=== PATIENT | female | born 1940 | race Caucasian/White ===

== ENCOUNTER 2018-01-23 20:52 | Inpatient (IN) | payer OTHER ==
--- NOTE | 2018-01-23 21:49 | DR.GENAD ---
HPI - PCP Primary Care Physician: FROM [facility] - HPI Comment HPI Comment: PATIENT USE MEDS AT HOME BUT STILL SOB AND RUNNING FEVER. COUGHING , PRODUCTIVE SLIGHTLY YELLOW SPUTUM. NO DYSURIA. - Complaint/Symptoms Chief Complaint Doctors Comments: INCREASING SOB Chief Complaint:: WHEEZING CANT BREATH GOOD HAS COPD AND THINKS IT IS A FLAIR UP OF THAT Self Treatment fo Chief Complaint: ALBUTEROL BREATHING TREATMENTS. BREO AND SPRIVA INH - Nurses notes reviewed Nurses Notes Review: Yes - Source History Provided: Patient - Mode of Arrival Mode of Arrival: Ambulatory - Timing Onset of Chief Complaint: 01/22/18 - Duration Duration: Constant Duration: Hours - Severity Severity: Moderate PMH - PMH Past Medical History: Yes Past Medical History: Anxiety, Asthma, COPD, Diabetes, Hypertension Past Medical History Comment: RESTLESS LEGS. STAGE 3 KIDNEY FAILURE. INSOMNIA Past Surgical History: Yes Surgical History: Hysterectomy, Tonsillectomy Past Surgical History Comment: ESOPHAGUS- DILITATION/ REMOVED NERVES. BACK SURGERY X 2. ROTATOR CUFF BILAT ARMS X2 EACH - Family History History of Family Medical Conditions: Yes Family Medical History: Diabetes Mellitus, [place], Hypertension - Social History Does patient currently use any type of tobacco product: No Have you used tobacco products in the last 12 months: No Type of Tobacco Use: None Does any household member use tobacco: No Alcohol Use: None Do you use any recreational Drugs:: No Lives With: Family Lives Where: Home - infectious screening In the last 2 months have you had wt loss of >10#?: NO Have you had fever, night sweats or hemotysis?: No Have you traveled outside the country in the last 6 months?: No Isolation: Standard ROS - Review of Systems Constitutional: Fever, Weakness, Fatigue. negative: Chills Eyes: No Symptoms Reported. negative: Eye Pain, Discharge ENTM: Nose Discharge, Nose Congestion. negative: Ear Pain, Throat Pain Respiratoy: Productive Cough, Short of Breath, Wheezing. negative: Hemoptysis Cardiovascular: Chest Pain Gastrointestinal/Abdominal: No Symptoms Reported Genitourinary: No Symptoms Reported Neurological: No Symptoms Reported Musculoskeletal: No Symptoms Reported Integumentary: No Symptoms Reported Hematologic/Lymphatic: No Symptoms Reported Endocrine: No Symptoms Reported All Other Systems: Reviewed and Negative PE - Vital Signs Vitals: Temperature 99.6 F Pulse Rate 71 Respiratory Rate 18 Blood Pressure 154/68 O2 Sat by Pulse Oximetry 100 - General Limitations: No Limitations General Appearance: Alert, In Distress - Head Head Exam: Normal Inspection - Eyes Eye exam: Normal Appearance - ENT ENT Exam: Normal External Ear Exam External Ear Exam: Normal External Inspection TM/Canal Exam: Bilateral Normal Nose Exam: Normal Nose Exam Mouth Exam: Normal Inspection Throat Exam: Normal Inspection - Neck Neck Exam: Trachea Midline - Chest Chest Inspection: Symmetric Chest Wall Rise - Respiratory Respiratory Exam: Respiratory Distress Respiratory Exam: Bilateral Wheezing, Bilateral Rhonchi, Upper Wheezing, Upper Rhonchi, Lower Wheezing, Lower Rhonchi - Cardiovascular Cardiovascular Exam: Regular Rate, Normal Rhythm, Normal Heart Sounds - Abdominal Exam Abdominal Exam: Normal Bowel Sounds, Soft. negative: Tenderness - Extremities Extremities Exam: Normal Inspection - Back Back Exam: Normal Inspection - Neurologic Neurological Exam: Alert, Oriented X3 - Psychiatric Psychiatric Exam: Normal Affect, Normal Mood - Skin Skin Exam: Normal Color MDM - Differential Diagnosis Differential Diagnosis: COPB EXCERBATION, BRONCHITIS, PNEUMONIA Course - Treatment Treatment: SEE ORDERS. - Consultation Consultation Comments: PATIENT ADMITTED TO DR. MARQUIS. - Education/Counseling Education/Counseling: Patient, Education Educated On: Diagnosis ROR - Labs Reviewed Laboratory Results Reviewed?: Yes Result Diagrams: 01/23/18 22:13 01/23/18 22:13 Laboratory: WBC 7.7 X10^3/uL (3.6-10.0) 01/23/18 22:13 RBC 3.94 X10^6/uL (3.5-5.4) 01/23/18 22:13 Hgb 11.5 g/dL (12.0-16.0) L 01/23/18 22:13 Hct 35.0 % (36.0-47.0) L 01/23/18 22:13 MCV 88.8 fL (80.0-100.0) 01/23/18 22:13 MCH 29.2 pg (27.0-34.0) 01/23/18 22:13 MCHC 32.9 g/dL (33.0-35.0) L 01/23/18 22:13 RDW 16.1 % (11.6-16.5) 01/23/18 22:13 Plt Count 220 X10^3/uL (150.0-450.0) 01/23/18 22:13 MPV 11.0 fL (7.4-11.0) 01/23/18 22:13 Neut % (Auto) 60.3 % (42.0-75.0) 01/23/18 22:13 Lymph % (Auto) 24.5 % (21.0-51.0) 01/23/18 22:13 [place] % (Auto) 9.6 % (0.0-13.0) 01/23/18 22:13 Eos % (Auto) 4.8 % (0.9-2.9) H 01/23/18 22:13 Baso % (Auto) 0.8 % (0.2-1.0) 01/23/18 22:13 Neut # (Auto) 4.7 x10^3/uL (2.2-4.8) 01/23/18 22:13 Lymph # (Auto) 1.9 X10^3/uL (1.3-2.9) 01/23/18 22:13 [place] # (Auto) 0.7 x10^3/uL (0.3-0.8) 01/23/18 22:13 Eos # (Auto) 0.4 x10^3/uL (0.0-0.2) H 01/23/18 22:13 Baso # (Auto) 0.1 X10^3/uL (0.0-0.1) 01/23/18 22:13 Absolute Nucleated RBC 0.0 /100WBC 01/23/18 22:13 Sodium 141 mmol/L (136-145) 01/23/18 22:13 Corrected Sodium TNP 01/23/18 22:13 Potassium 4.3 mmol/L (3.5-5.1) 01/23/18 22:13 Chloride 102 mmol/L (98-107) 01/23/18 22:13 Carbon Dioxide 34.2 mmol/L (21-32) H 01/23/18 22:13 BUN 13 mg/dL (7-18) 01/23/18 22:13 Creatinine 1.11 mg/dL (0.55-1.02) H 01/23/18 22:13 Est GFR (MDRD) Af Amer > 60 (>60) 01/23/18 22:13 Est GFR (MDRD) Non-Af 51 (>60) L 01/23/18 22:13 Glucose 82 mg/dL (65-99) 01/23/18 22:13 Lactic Acid 2.0 mmol/L (0.4-2.0) 01/23/18 23:02 Calcium 9.1 mg/dL (8.5-10.1) 01/23/18 22:13 Corrected Calcium 9.7 mg/dL (8.5-10.1) 01/23/18 22:13 Total Bilirubin 0.20 mg/dL (0.2-1.0) 01/23/18 22:13 AST 15 Units/L (15-37) 01/23/18 22:13 ALT 18 Units/L (12-78) 01/23/18 22:13 Alkaline Phosphatase 73 Units/L (46-116) 01/23/18 22:13 Total Protein 7.8 g/dL (6.4-8.2) 01/23/18 22:13 Albumin 3.3 g/dL (3.4-5.0) L 01/23/18 22:13 Globulin 4.5 g/dL (2.5-4.5) 01/23/18 22:13 Albumin/Globulin Ratio 0.7 Ratio (1.1-2.1) L 01/23/18 22:13 - XRAY XRAY Interpreted by: Radiologist XRAY Findings: REPORT DISCUSS WITH PATIENT. - Diagnosis Discharge Problem: COPD exacerbation, Pneumonia - Discharge Plan Disposition: ADMITTED INPATIENT Condition: Stable - Follow ups/Referrals - Instructions
[2018-01-23] MEDS ORDERED: DUONEB 0.5 MG/3 MG NEB ONE (21:50)
[2018-01-23] MEDS ORDERED: SOLU-Medrol 125 MG VIAL IM ONE (21:50)
[2018-01-23] MEDS ORDERED: SOLU-Medrol 125 MG VIAL ONE (22:01)
--- NOTE | 2018-01-23 22:13 | RAD ---
HISTORY: Wheezing. Study: Portable chest. Comparison: Chest x-ray dated February 05, 2016. Findings: The trachea is midline. The cardiac silhouette is unremarkable. Peribronchial cuffing and right low er lobe atelectasis versus early infiltrate. No obvious pleural effusion or pneumothorax. The bony t horax appears unchanged. IMPRESSION: Constellation of findings which may represent bronchitis and early right lower lobe atele ctasis versus infiltrate. Reported By:
[2018-01-23 22:25] LABS: BASOPHILS # (AUTO) 0.1 X10^3/uL (0.0-0.1); BASOPHILS % (AUTO) 0.8 % (0.2-1.0); EOSINOPHILS # (AUTO) 0.4 x10^3/uL (0.0-0.2); EOSINOPHILS % (AUTO) 4.8 % (0.9-2.9); HEMOGLOBIN 11.5 g/dL (12.0-16.0); LYMPHOCYTES # (AUTO) 1.9 X10^3/uL (1.3-2.9); LYMPHOCYTES % (AUTO) 24.5 % (21.0-51.0); MEAN CORPUSCULAR HEMOGLOBIN 29.2 pg (27.0-34.0); MEAN CORPUSCULAR HGB CONC 32.9 g/dL (33.0-35.0); MEAN CORPUSCULAR VOLUME 88.8 fL (80.0-100.0); MONOCYTES # (AUTO) 0.7 x10^3/uL (0.3-0.8); MONOCYTES % (AUTO) 9.6 % (0.0-13.0); NEUTROPHILS # (AUTO) 4.7 x10^3/uL (2.2-4.8); NEUTROPHILS % (AUTO) 60.3 % (42.0-75.0); PLATELET COUNT 220 X10^3/uL (150.0-450.0); RED BLOOD COUNT 3.94 X10^6/uL (3.5-5.4); RED CELL DISTRIBUTION WIDTH 16.1 % (11.6-16.5); WHITE BLOOD COUNT 7.7 X10^3/uL (3.6-10.0)
[2018-01-23 22:31] LABS: ALANINE AMINOTRANSFERASE 18 Units/L (12-78); ALBUMIN 3.3 g/dL (3.4-5.0); ALKALINE PHOSPHATASE 73 Units/L (46-116); ASPARTATE AMINO TRANSFERASE 15 Units/L (15-37); BLOOD UREA NITROGEN 13 mg/dL (7-18); CALCIUM 9.1 mg/dL (8.5-10.1); CARBON DIOXIDE 34.2 mmol/L (21-32); CHLORIDE 102 mmol/L (98-107); COR CA(FOR HYPOALB) 9.7 mg/dL (8.5-10.1); CREATININE 1.11 mg/dL (0.55-1.02); SODIUM 141 mmol/L (136-145); TOTAL PROTEIN 7.8 g/dL (6.4-8.2); eGFR BLACK RACES > 60 (>60); eGFR NON BLACK RACES 51 (>60)
[2018-01-23] MEDS ORDERED: ROCEPHIN 1 GM IV PREMIX 1 GM/50 ML IV.SOLN. IV ONE (22:57)
[2018-01-23] MEDS ORDERED: NS 100 ML IV + SPIKE MINIBAG* 100 ML IV ONE (23:01)
[2018-01-23] MEDS ORDERED: ROCEPHIN VIAL 1 GM ONE (23:02)
[2018-01-24] MEDS ORDERED: TUSSIONEX PENNKINETIC SUSP PO PRN (00:48)
[2018-01-24] MEDS: DUONEB 0.5 MG/3 MG NEB SCH ×5 (01:26→16:38)
[2018-01-24] MEDS ORDERED: NS 1/2 1000 ML IV 1,000 ML IV ONE (01:36)
[2018-01-24] MEDS: NS 1/2 1000 ML IV 1,000 ML IV SCH (01:38)
[2018-01-24 01:50] VITALS: BMI 30.9
[2018-01-24 05:19] LABS: BASOPHILS % (AUTO) 0.5 % (0.2-1.0); EOSINOPHILS % (AUTO) 0.1 % (0.9-2.9); HEMATOCRIT 35.6 % (36.0-47.0); HEMOGLOBIN 11.5 g/dL (12.0-16.0); LYMPHOCYTES # (AUTO) 0.4 X10^3/uL (1.3-2.9); LYMPHOCYTES % (AUTO) 5.2 % (21.0-51.0); MEAN CORPUSCULAR HGB CONC 32.2 g/dL (33.0-35.0); MEAN CORPUSCULAR VOLUME 89.8 fL (80.0-100.0); MEAN PLATELET VOLUME 11.4 fL (7.4-11.0); MONOCYTES # (AUTO) 0.1 x10^3/uL (0.3-0.8); NEUTROPHILS # (AUTO) 7.5 x10^3/uL (2.2-4.8); NEUTROPHILS % (AUTO) 93.2 % (42.0-75.0); PLATELET COUNT 217 X10^3/uL (150.0-450.0); RED BLOOD COUNT 3.96 X10^6/uL (3.5-5.4); WHITE BLOOD COUNT 8.1 X10^3/uL (3.6-10.0)
[2018-01-24 05:45] LABS: ALBUMIN 3.2 g/dL (3.4-5.0); CALCIUM 8.8 mg/dL (8.5-10.1); CARBON DIOXIDE 26.5 mmol/L (21-32); COR CA(FOR HYPOALB) 9.4 mg/dL (8.5-10.1); CREATININE 1.21 mg/dL (0.55-1.02)
[2018-01-24] MEDS: HumuLIN R SUBCUT PRN ×3 (05:59→20:31)
[2018-01-24] MEDS ORDERED: LEVAQUIN PREMIX IV 750 MG 750 MG/150 ML BAG IV SCH (06:00)
[2018-01-24 06:15] LABS: BAND NEUTROPHILS % 5 % (0-10); PLATELET MORPHOLOGY COMMENT NORMAL (NORMAL)
[2018-01-24] MEDS: VIBRAMYCIN 100 MG in NS 100 ML IV + SPIKE MINIBAG* 100 ML IV SCH ×2 (08:30→20:29)
[2018-01-24] MEDS: ROBITUSSIN DM PO SCH ×5 (08:30→20:40)
[2018-01-24] MEDS ORDERED: SOLU-Medrol 40 MG VIAL IVP SCH (09:00)
[2018-01-24] MEDS ORDERED: REFLEX: PROVENTIL NEB & PulmiCORT NEB~ NEB SCH (10:15)
[2018-01-24] MEDS ORDERED: ULTRAM PO PRN (10:17)
[2018-01-24] MEDS: PREDNISONE TAB 10 MG PO SCH (10:45)
[2018-01-24] MEDS: TENORMIN PO SCH (10:46)
[2018-01-24] MEDS: MIRAPEX TAB 1 MG PO SCH ×2 (10:46→20:28)
[2018-01-24] MEDS: GLUCOPHAGE XR PO SCH ×2 (10:46→20:28)
[2018-01-24] MEDS: ACTOS PO SCH (10:46)
[2018-01-24 11:12] LABS: BILIRUBIN,URINE NEGATIVE (NEGATIVE); BLOOD/HEMOGLOBIN,URINE NEGATIVE (NEGATIVE); GLUCOSE, URINE 4+ (NEGATIVE); KETONES,URINE 1+ (NEGATIVE); LEUKOCYTE ESTERASE ,URINE NEGATIVE (NEGATIVE); NITRITES,URINE NEGATIVE (NEGATIVE); PROTEIN,URINE 1+ (NEGATIVE); UROBILINOGEN,URINE NORMAL (NORMAL)
[2018-01-24 11:20] LABS: APPEARANCE,URINE CLEAR (CLEAR); COLOR,URINE YELLOW (YELLOW)
[2018-01-24 11:29] LABS: RBC,URINE 0-2 /HPF (NONE SEEN)
[2018-01-24 11:30] LABS: BACTERIA,URINE NEGATIVE /HPF (NEGATIVE); SQUAMOUS EPITHELIAL CELL,UR RARE /HPF (NEGATIVE)
[2018-01-24 11:31] LABS: AMORPHOUS SEDIMENT,UR TRACE /HPF (NEGATIVE); MUCUS,URINE FEW /HPF (NEGATIVE)
[2018-01-24] MEDS ORDERED: SNACK - Diabetic Appropriate PO SCH (20:00)
[2018-01-24] MEDS ORDERED: ROCEPHIN 1 GM IV PREMIX 1 GM/50 ML IV.SOLN. IV SCH (21:00)
[2018-01-24] MEDS ORDERED: KLONOPIN TAB 1 MG PO SCH (21:00)
[2018-01-25] MEDS: DUONEB 0.5 MG/3 MG NEB SCH ×4 (00:55→08:57)
[2018-01-25] MEDS: PULMICORT NEB TX 0.5 MG NEB SCH ×2 (01:22→08:57)
[2018-01-25] MEDS ORDERED: NS 1/2 1000 ML IV 1,000 ML IV ONE (04:45)
[2018-01-25] MEDS: NS 1/2 1000 ML IV 1,000 ML IV SCH ×2 (05:02→07:10)
[2018-01-25] MEDS: HumuLIN R SUBCUT PRN (05:32)
[2018-01-25 06:08] LABS: CALCIUM 8.9 mg/dL (8.5-10.1); COR CA(FOR HYPOALB) 9.7 mg/dL (8.5-10.1); CREATININE 1.51 mg/dL (0.55-1.02); TOTAL PROTEIN 7.3 g/dL (6.4-8.2)
[2018-01-25 07:08] LABS: BASOPHILS # (AUTO) 0.1 X10^3/uL (0.0-0.1); BASOPHILS % (AUTO) 0.7 % (0.2-1.0); HEMATOCRIT 30.5 % (36.0-47.0); LYMPHOCYTES # (AUTO) 1.1 X10^3/uL (1.3-2.9); LYMPHOCYTES % (AUTO) 7.6 % (21.0-51.0); MEAN CORPUSCULAR HEMOGLOBIN 28.7 pg (27.0-34.0); MEAN CORPUSCULAR HGB CONC 32.7 g/dL (33.0-35.0); MEAN CORPUSCULAR VOLUME 87.9 fL (80.0-100.0); MONOCYTES # (AUTO) 0.9 x10^3/uL (0.3-0.8); MONOCYTES % (AUTO) 6.7 % (0.0-13.0); PLATELET COUNT 197 X10^3/uL (150.0-450.0); RED BLOOD COUNT 3.47 X10^6/uL (3.5-5.4); RED CELL DISTRIBUTION WIDTH 16.4 % (11.6-16.5); WHITE BLOOD COUNT 14.1 X10^3/uL (3.6-10.0)
[2018-01-25] MEDS: ROBITUSSIN DM PO SCH (08:23)
[2018-01-25] MEDS: VIBRAMYCIN 100 MG in NS 100 ML IV + SPIKE MINIBAG* 100 ML IV SCH (08:23)
[2018-01-25] MEDS: TENORMIN PO SCH (08:25)
[2018-01-25] MEDS: MIRAPEX TAB 1 MG PO SCH (08:25)
[2018-01-25] MEDS: PREDNISONE TAB 10 MG PO SCH (08:25)
[2018-01-25] MEDS: ACTOS PO SCH (08:25)
[2018-01-25 08:32] VITALS: BP 139/64
== END 2018-01-25 12:55 | disposition home or self-care (01) | DRG 192 ==
LOC: ER 21:08 → MED/SURG 01-24 00:40
PROVIDERS: ADMIT Obstetrics & Gynecology Obstetrics; ATTEND Obstetrics & Gynecology Obstetrics
DX: J44.1 Chronic obstructive pulmonary disease with (acute) exacerbation (principal); J20.8 Acute bronchitis due to other specified organisms; R06.02 Shortness of breath; F41.8 Other specified anxiety disorders; E11.65 Type 2 diabetes mellitus with hyperglycemia; I10 Essential (primary) hypertension; R26.89 Other abnormalities of gait and mobility
CPT/HCPCS: 36415; 71045; 80053; 81001; 83605; 85025; 87040; 87070; 87205; 93005; 93010; 94640; 94760; 96365; 96372; 99284; A4222; J0696; J1815; J1956; J2920; J2930; J3490; J7506; J7620; J7626

== ENCOUNTER 2018-02-13 20:38 | Emergency (ER) | payer OTHER ==
[2018-02-13 20:48] VITALS: BMI 30.8
--- NOTE | 2018-02-14 01:04 | DR.GENAD ---
HPI - PCP Primary Care Physician: PEOPLES - Complaint/Symptoms Chief Complaint Doctors Comments: Patient was admitted and treated for acute exacerbation of bronchitis. She was discharged on pulmicort Flexhaler and Anoro. Patient denies cigarette use. Chief Complaint:: WAS IN HOSPITAL THE WEEK BEFORE ON A TUESDAY, STILL WHEEZING. PT HAS COPD. HAS BEEN RUNNING A FEVER YESTERDAY AND TODAY. BACK AND LEFT KNEE HURTING VERY BAD. Self Treatment fo Chief Complaint: ASPIRIN EVERY 4 HOURS. LAST DOSE ABOUT AN HOUR AND A HALF - Source History Provided: Patient - Mode of Arrival Mode of Arrival: Ambulatory - Timing Onset of Chief Complaint: 02/13/18 PMH - PMH Past Medical History: Yes Past Medical History: Anxiety, Arthritis, Asthma, CHF, COPD, Diabetes, Dyslipidemia, GERD, Headaches, Hypertension, Liver Disease Past Medical History Comment: RESTLESS LEGS, STAGE 3 LIVER DISEASE Past Surgical History: Yes Surgical History: Hysterectomy Past Surgical History Comment: 5 ROTATOR CUFF SURERY, BACK SURGERY TWICE, - Family History History of Family Medical Conditions: Yes Family Medical History: Diabetes Mellitus, [place], Hypertension - Social History Does patient currently use any type of tobacco product: No Have you used tobacco products in the last 12 months: No Type of Tobacco Use: Cigarettes How many years tobacco product used: 50 Alcohol Use: None Do you use any recreational Drugs:: No Lives With: Family Lives Where: Home - infectious screening In the last 2 months have you had wt loss of >10#?: NO Have you had fever, night sweats or hemotysis?: No Have you traveled outside the country in the last 6 months?: No Isolation: Standard ROS - Review of Systems Eyes: No Symptoms Reported ENTM: No Symptoms Reported Respiratoy: No Symptoms Reported Cardiovascular: No Symptoms Reported Gastrointestinal/Abdominal: No Symptoms Reported Genitourinary: No Symptoms Reported Neurological: No Symptoms Reported Musculoskeletal: No Symptoms Reported Integumentary: No Symptoms Reported Hematologic/Lymphatic: No Symptoms Reported Endocrine: No Symptoms Reported Psychiatric: No Symptoms Reported All Other Systems: Reviewed and Negative PE - Vital Signs Vitals: Temperature 98.8 F Pulse Rate 80 Respiratory Rate 16 Blood Pressure [Right Arm] 139/64 Blood Pressure 170/72 O2 Sat by Pulse Oximetry 95 - General General Appearance: Alert, In No Apparent Distress - Head Head Exam: Normal Inspection, Atraumatic - Eyes Eye exam: Normal Appearance, PERRL, EOMI - ENT ENT Exam: Normal Exam External Ear Exam: Normal External Inspection TM/Canal Exam: Bilateral Normal Nose Exam: Normal Nose Exam Mouth Exam: Normal Inspection Throat Exam: Normal Inspection - Neck Neck Exam: Normal Inspection - Chest Chest Inspection: Normal Inspection - Respiratory Respiratory Exam: Normal Lung Sounds Bilat Respiratory Exam: Bilateral Clear to Auscultation - Cardiovascular Cardiovascular Exam: Regular Rate, Normal Rhythm - Abdominal Exam Abdominal Exam: Normal Inspection, Normal Bowel Sounds Abdominal Tenderness: negative: RUQ, RLQ, LUQ, LLQ, Epigastrium, Suprapubic, Diffuse, Mild, Moderate, Severe, Other - Extremities Extremities Exam: Normal Inspection, Full ROM - Back Back Exam: Normal Inspection, Full ROM - Neurologic Neurological Exam: Alert, Oriented X3, CN II-XII Intact - Psychiatric Psychiatric Exam: Normal Affect, Normal Mood - Skin Skin Exam: Warm, Dry, Intact Course - Education/Counseling Educated On: Treatment, Diagnosis, Prognosis, Needs for Follow Up - Diagnosis Discharge Problem: Cough, History of bronchitis - Discharge Plan Condition: Stable - Follow ups/Referrals Follow ups/Referrals: LUMA PEOPLES [Primary Care Provider] - 3 days - Instructions
[2018-02-14 01:27] VITALS: BP 152/88
== END 2018-02-14 01:27 | disposition home or self-care (01) ==
LOC: ER 20:51
DX: R05 Cough (principal); Z87.09 Personal history of other diseases of the respiratory system; J44.9 Chronic obstructive pulmonary disease, unspecified
CPT/HCPCS: 99281; 99283

== ENCOUNTER 2019-05-26 20:43 | Observation (INO) ==
--- NOTE | 2019-05-26 21:05 | DR.GENAD ---
HPI Time Seen Time Seen by Provider: 05/26/19 21:05 PCP Primary Care Physician: Complaint/Symptoms Chief Complaint Doctors Comments: 78 yo female PMHx of COPD on home 02, 50 pack year, CHF, wheel chair bound who presents for cough and SOB. She started 3 days ago. She has gotten progressively sob, productive cough, she states that she has not have fever. She states that she is has been admitted several time for COPD exacerbation. Chief Complaint:: "PT STATED SHE IS SOB AND COUGHING AND SPITTING UP. Self Treatment fo Chief Complaint: SHE HAS BEEN DOING BREATHING TREATMENTS AT HOME BUT IT IS GETTING WORST. Source History Provided: Patient Mode of Arrival Mode of Arrival: Wheelchair Timing Onset of Chief Complaint: 05/22/19 PMH PMH Past Medical History: No Past Medical History: CHF, COPD, Diabetes and Hypertension Past Surgical History: Yes Surgical History: Hysterectomy Past Surgical History Comment: BACK SURGERY AND ESOPHAGEAL SURGERY Family History History of Family Medical Conditions: Yes Family Medical History: Diabetes Mellitus and Hypertension Social History Does patient currently use any type of tobacco product: No Have you used tobacco products in the last 12 months: No Type of Tobacco Use: None Does any household member use tobacco: No Alcohol Use: None Do you use any recreational Drugs:: No Lives With: Family infectious screening In the last 2 months have you had wt loss of >10#?: NO Have you had fever, night sweats or hemotysis?: No Have you traveled outside the country in the last 6 months?: No Isolation: Standard ROS Review of Systems Constitutional: Weakness and Fatigue Eyes: No Symptoms Reported ENTM: No Symptoms Reported Respiratoy: Productive Cough, Hacking Cough and Wheezing Cardiovascular: No Symptoms Reported Gastrointestinal/Abdominal: No Symptoms Reported Genitourinary: No Symptoms Reported Neurological: Tingling (in left arm ) Musculoskeletal: No Symptoms Reported (chronic complaints) Integumentary: No Symptoms Reported Hematologic/Lymphatic: No Symptoms Reported Endocrine: No Symptoms Reported Psychiatric: No Symptoms Reported All Other Systems: Reviewed and Negative PE Vital Signs Vitals: Temperature 98.3 F Pulse Rate [Brachial] 83 Pulse Rate 78 Respiratory Rate 18 Blood Pressure [Right Arm] 142/66 Blood Pressure 134/61 O2 Sat by Pulse Oximetry 95 General Limitations: Physical Limitation (wheel chair bound) General Appearance: Alert and In Distress (respiratory) Head Head Exam: Normal Inspection, Atraumatic and Normocephalic Eyes Eye exam: Normal Appearance, PERRL and EOMI ENT ENT Exam: Normal Exam and Normal Oropharynx External Ear Exam: Normal External Inspection Nose Exam: Normal Nose Exam Mouth Exam: Normal Inspection Throat Exam: Normal Inspection Neck Neck Exam: Normal Inspection and Full ROM Chest Chest Inspection: Normal Inspection Respiratory Respiratory Exam: Bilateral: Wheezing and Bilateral: Rales Cardiovascular Cardiovascular Exam: Regular Rate and Normal Rhythm Abdominal Exam Abdominal Exam: Normal Inspection and Normal Bowel Sounds Extremities Extremities Exam: Normal Inspection, Full ROM and Edema (+1 to ankle B/L LE's ) Neurologic Neurological Exam: Alert, Oriented X3 and CN II-XII Intact MDM Additional Information Additional Information Obtained From: Old Records and Family Differential Diagnosis Differential Diagnosis: COPD exacerbation and CHAY on CKD COURSE Treatment Treatment: Pt has worsening COPD and has been admitted 3 times this year already for COPD related issues. She has exertional dyspnea, SOB, and worsening cough. CXR was clear and WBC wnl but breathing wheezing has improved only slightly with dounebs tx, discussed with hospitalist who agrees with inpt admission for further workup Reevaluation 1st: Unchanged (23:00 pt in mild respiratory distress) 2nd: Improved (Improved S/P duoneb ~01;00 ) 3rd: Unchanged (01:30 explained admission and all lab findings to family ) Consultation Called: :44 Call Returned: :44 Consultation Comments: Dr. Rafael Borges accepted admission for further workup Education/Counseling Education/Counseling: Patient, Family, Education and Counseling Educated On: Treatment, Diagnosis, Prognosis and Needs for Follow Up ROR Labs Reviewed Laboratory Results Reviewed?: Yes Result Diagrams: 05/26/19 21:25 05/26/19 21:25 Laboratory: WBC 7.9 X10^3/uL (3.6-10.0) 05/26/19 21:25 RBC 4.00 X10^6/uL (3.5-5.4) 05/26/19 21:25 Hgb 11.6 g/dL (12.0-16.0) L 05/26/19 21:25 Hct 36.0 % (36.0-47.0) 05/26/19 21:25 MCV 90.0 fL (80.0-100.0) 05/26/19 21:25 MCH 29.0 pg (27.0-34.0) 05/26/19 21:25 MCHC 32.2 g/dL (33.0-35.0) L 05/26/19 21:25 RDW 16.5 % (11.6-16.5) 05/26/19 21:25 Plt Count 255 X10^3/uL (150.0-450.0) 05/26/19 21:25 MPV 9.5 fL (7.4-11.0) 05/26/19 21:25 Neut % (Auto) 79.9 % (42.0-75.0) H 05/26/19 21:25 Lymph % (Auto) 9.2 % (21.0-51.0) L 05/26/19 21:25 [place] % (Auto) 4.9 % (0.0-13.0) 05/26/19 21:25 Eos % (Auto) 2.4 % (0.9-2.9) 05/26/19 21:25 Baso % (Auto) 3.6 % (0.2-1.0) H 05/26/19 21:25 Neut # (Auto) 6.3 x10^3/uL (2.2-4.8) H 05/26/19 21:25 Lymph # (Auto) 0.7 X10^3/uL (1.3-2.9) L 05/26/19 21:25 [place] # (Auto) 0.4 x10^3/uL (0.3-0.8) 05/26/19 21:25 Eos # (Auto) 0.2 x10^3/uL (0.0-0.2) 05/26/19 21:25 Baso # (Auto) 0.3 X10^3/uL (0.0-0.1) H 05/26/19 21:25 Absolute Nucleated RBC 0.0 /100WBC 05/26/19 21:25 Sodium 140 mmol/L (136-145) 05/26/19 21:25 Corrected Sodium 142 mmol/L (136-145) 05/26/19 21:25 Potassium 4.7 mmol/L (3.5-5.1) 05/26/19 21:25 Chloride 100 mmol/L (98-107) 05/26/19 21:25 Carbon Dioxide 32.3 mmol/L (21-32) H 05/26/19 21:25 BUN 31 mg/dL (7-18) H 05/26/19 21:25 Creatinine 2.18 mg/dL (0.55-1.02) H 05/26/19 21:25 Est GFR (MDRD) Af Amer 28 (>60) L 05/26/19 21:25 Est GFR (MDRD) Non-Af 23 (>60) L 05/26/19 21:25 Glucose 194 mg/dL (65-99) H 05/26/19 21:25 Calcium 8.7 mg/dL (8.5-10.1) 05/26/19 21:25 Corrected Calcium 9.3 mg/dL (8.5-10.1) 05/26/19 21:25 Total Bilirubin 0.20 mg/dL (0.2-1.0) 05/26/19 21:25 AST 24 Units/L (15-37) 05/26/19 21:25 ALT 29 Units/L (12-78) 05/26/19 21:25 Alkaline Phosphatase 83 Units/L (46-116) 05/26/19 21:25 Troponin I < 0.02 ng/mL (0-1.5) 05/26/19 21:25 Total Protein 7.4 g/dL (6.4-8.2) 05/26/19 21:25 Albumin 3.3 g/dL (3.4-5.0) L 05/26/19 21:25 Globulin 4.1 g/dL (2.5-4.5) 05/26/19 21:25 Albumin/Globulin Ratio 0.8 Ratio (1.1-2.1) L 05/26/19 21:25 XRAY XRAY Interpreted by: Radiologist and Self XRAY Findings: no acute pathology EKG Rate: 68 Peck: Normal Rhythm: NSR Block: None Hypertrophy: LVH ST: Normal Opioid Opioid Risk Tool Total: 0 Total Score Risk Category: Low Risk Copyright: Vasile SOLOMON predicting aberrant behaviors Diagnosis Discharge Problem: Acute exacerbation of chronic obstructive pulmonary disease (COPD), CHAY (acute kidney injury) Narrative Support Text: admitted to hospital for further workup @ 01:44
[2019-05-26 21:33] LABS: BASOPHILS # (AUTO) 0.3 X10^3/uL (0.0-0.1); BASOPHILS % (AUTO) 3.6 % (0.2-1.0); EOSINOPHILS # (AUTO) 0.2 x10^3/uL (0.0-0.2); EOSINOPHILS % (AUTO) 2.4 % (0.9-2.9); HEMOGLOBIN 11.6 g/dL (12.0-16.0); LYMPHOCYTES # (AUTO) 0.7 X10^3/uL (1.3-2.9); LYMPHOCYTES % (AUTO) 9.2 % (21.0-51.0); MEAN CORPUSCULAR HGB CONC 32.2 g/dL (33.0-35.0); MEAN PLATELET VOLUME 9.5 fL (7.4-11.0); MONOCYTES # (AUTO) 0.4 x10^3/uL (0.3-0.8); MONOCYTES % (AUTO) 4.9 % (0.0-13.0); NEUTROPHILS # (AUTO) 6.3 x10^3/uL (2.2-4.8); NEUTROPHILS % (AUTO) 79.9 % (42.0-75.0); PLATELET COUNT 255 X10^3/uL (150.0-450.0); RED CELL DISTRIBUTION WIDTH 16.5 % (11.6-16.5); WHITE BLOOD COUNT 7.9 X10^3/uL (3.6-10.0)
[2019-05-26 21:41] LABS: ALBUMIN 3.3 g/dL (3.4-5.0); CALCIUM 8.7 mg/dL (8.5-10.1); CARBON DIOXIDE 32.3 mmol/L (21-32); COR CA(FOR HYPOALB) 9.3 mg/dL (8.5-10.1); CREATININE 2.18 mg/dL (0.55-1.02); TOTAL PROTEIN 7.4 g/dL (6.4-8.2)
[2019-05-26] MEDS ORDERED: DUONEB 0.5 MG/3 MG NEB ONE (22:07)
[2019-05-26] MEDS ORDERED: SOLU-Medrol 125 MG VIAL IVP ONE (22:11)
[2019-05-26] MEDS ORDERED: LEVAQUIN PREMIX IV 750 MG 750 MG/150 ML BAG IV SCH (22:15)
[2019-05-26] MEDS ORDERED: SOLU-Medrol 125 MG VIAL ONE (22:21)
--- NOTE | 2019-05-26 22:47 | RAD ---
Chest, one view Indication: Shortness of breath Comparison: 09/23/2018 Findings: There is stable mild enlargement of the cardiac silhouette without congestive failure. No focal infiltrate or significant effusion is identified. No pneumothorax. Impression: No acute cardiopulmonary abnormality. Reported By:
[2019-05-26] MEDS ORDERED: NS 1000 ML 1,000 ML IV SCH (23:40)
[2019-05-26] MEDS ORDERED: SOLU-Medrol 40 MG VIAL ONE (23:41)
[2019-05-26] MEDS ORDERED: NS 1000 ML 1,000 ML ONE (23:41)
[2019-05-26] MEDS ORDERED: DUONEB 0.5 MG/3 MG ONE (23:42)
[2019-05-27] MEDS ORDERED: TYLENOL 325 MG TAB PO PRN (02:59)
[2019-05-27] MEDS: DUONEB 0.5 MG/3 MG NEB SCH ×5 (03:00→19:59)
[2019-05-27] MEDS ORDERED: NS 1000 ML 1,000 ML IV SCH (03:00)
[2019-05-27] MEDS: NS 1000 ML 1,000 ML IV SCH ×2 (03:48→17:12)
[2019-05-27 05:33] LABS: BASOPHILS % (AUTO) 0.6 % (0.2-1.0); EOSINOPHILS % (AUTO) 0.3 % (0.9-2.9); HEMATOCRIT 36.4 % (36.0-47.0); HEMOGLOBIN 11.8 g/dL (12.0-16.0); LYMPHOCYTES # (AUTO) 0.7 X10^3/uL (1.3-2.9); LYMPHOCYTES % (AUTO) 9.8 % (21.0-51.0); MEAN CORPUSCULAR HEMOGLOBIN 29.3 pg (27.0-34.0); MEAN CORPUSCULAR HGB CONC 32.3 g/dL (33.0-35.0); MEAN CORPUSCULAR VOLUME 90.7 fL (80.0-100.0); MEAN PLATELET VOLUME 10.6 fL (7.4-11.0); MONOCYTES # (AUTO) 0.1 x10^3/uL (0.3-0.8); MONOCYTES % (AUTO) 1.8 % (0.0-13.0); NEUTROPHILS # (AUTO) 6.6 x10^3/uL (2.2-4.8); NEUTROPHILS % (AUTO) 87.5 % (42.0-75.0); PLATELET COUNT 242 X10^3/uL (150.0-450.0); RED BLOOD COUNT 4.02 X10^6/uL (3.5-5.4); RED CELL DISTRIBUTION WIDTH 15.9 % (11.6-16.5); WHITE BLOOD COUNT 7.5 X10^3/uL (3.6-10.0)
[2019-05-27 06:07] LABS: ALANINE AMINOTRANSFERASE 29 Units/L (12-78); ALBUMIN 3.4 g/dL (3.4-5.0); ALKALINE PHOSPHATASE 81 Units/L (46-116); ASPARTATE AMINO TRANSFERASE 24 Units/L (15-37); BLOOD UREA NITROGEN 31 mg/dL (7-18); CALCIUM 8.9 mg/dL (8.5-10.1); CARBON DIOXIDE 28.3 mmol/L (21-32); CHLORIDE 99 mmol/L (98-107); CKMB % 2.2 % (<4); COR NA(FOR HYPERGLY) 142 mmol/L (136-145); CREATINE KINASE 46 Units/L (26-192); CREATINE KINASE MB < 1.0 ng/mL (0-4.0); CREATININE 1.75 mg/dL (0.55-1.02); SODIUM 138 mmol/L (136-145); TOTAL PROTEIN 7.8 g/dL (6.4-8.2); TROPONIN I < 0.02 ng/mL (0-1.5); eGFR NON BLACK RACES 30 (>60)
[2019-05-27] MEDS: HumuLIN R SC PRN ×3 (06:40→20:52)
[2019-05-27] MEDS ORDERED: LEVAQUIN PREMIX IV 750 MG 750 MG/150 ML BAG IV SCH (09:00)
--- NOTE | 2019-05-27 11:28 | DR.H&P ---
H&P - History & Physical for Day of: H&P Date: 05/27/19 - Chief Complaint Chief Complaint: SOB, CCC - History of Present Illness History of Present Illness: 78 yo female PMHx of COPD on home 02, 50 pack year, CHF, wheel chair bound who presents for cough and SOB. She started 3 days ago. She has gotten progressively sob, productive cough, she states that she has not have fever. She states that she is has been admitted several time for COPD exacerbation. PT HAS PMH OF DIABETES, COPD, HTN, OA. PT ADMITTED FOR TREATMENT OF COPD EXACERBATION. - Past Medical History Past Medical History: Hypertension, Diabetes, COPD, CHF - Past Surgical History Surgical History: Hysterectomy - Family History Family Medical History: Diabetes Mellitus, Hypertension - Social History Does patient currently use any type of tobacco product: No Have you used tobacco products in the last 12 months: No Type of Tobacco Use: None Does any household member use tobacco: No Alcohol Use: None - Medications Home Medications: No Known Drug Allergies Allergy (Verified 01/24/18 01:51) CONTINUE taking the following medications Albuterol Sulfate [Proair Hfa] 2 puff INH Q4H PRN 05/27/19 [History] atenolol 50 mg PO DAILY 05/27/19 [History] atorvastatin 20 mg PO HS 05/27/19 [History] budesonide 2 ml INHALATION BID 05/27/19 [History] clonazepam 2 mg PO HS PRN 05/27/19 [History] glipizide 10 mg PO DAILY 05/27/19 [History] guaifenesin 1,200 mg PO BID PRN 05/27/19 [History] ipratropium-albuterol 3 ml INHALATION Q6H 05/27/19 [History] metformin 850 mg PO BID 05/27/19 [History] omeprazole 40 mg PO BID 05/27/19 [History] - Review of Systems Constitutional: Weakness Eyes: No Symptoms Reported ENT: No Symptoms Reported Respiratory: Cough, Shortness of Breath, Wheezing Cardiovascular: No Symptoms Reported. denies: Edema Gastrointestinal: No Symptoms Reported Genitourinary: No Symptoms Reported Musculoskeletal: Back Pain, Leg Pain Skin: No Symptoms Reported Neurological: No Symptoms Reported - Physical Exam Vital Signs: Temperature 99.0 F Pulse Rate [Left Brachial] 100 Pulse Rate [Brachial] 91 Pulse Rate 72 Respiratory Rate 20 Blood Pressure [Left Arm] 164/68 Blood Pressure [Right Arm] 166/71 Blood Pressure 134/61 O2 Sat by Pulse Oximetry 92 Oriented: Normal Eyes: Normal Ear: Normal Nose: Normal Throat: Dry Respiratory: Wheezes Throughout, RLL Diminished, LLL Diminished Cardiovascular: Normal. negative: Edema : Normal Auscultation: Bowel Sounds: Normal Palpation: Normal Tenderness: Normal Skin: Decreased [place] Musculoskeletal: Leg, Back:Lumbar Psychiatric: Anxiety Affect: Anxious Speech Pattern: Clear, Appropriate - Assessment/Plan (1) COPD exacerbation Status: Acute Plan: ADMIT, IV ATBX THERAPY, SOLU MEDROL IV IN ER. BS CONTROL, RESP THERAPY. SUPPLEMENTAL O2, GENTLE IV HYDRATION. CXR Q AM, VERIFY HOME MEDICATION (2) Diabetes Status: Acute (3) Osteoarthritis Status: Acute - Allergies Allergies/Adverse Reactions: Allergies Allergy/AdvReac Type Severity Reaction Status Date / Time No Known Drug Allergies Allergy Verified 01/24/18 01:51
[2019-05-27] MEDS: TENORMIN PO SCH (11:39)
[2019-05-27 11:56] VITALS: BMI 35.7
[2019-05-27] MEDS: PULMICORT NEB TX 0.5 MG NEB SCH ×2 (12:32→19:59)
[2019-05-27] MEDS: ROBITUSSIN DM PO SCH ×3 (14:15→20:52)
[2019-05-27] MEDS ORDERED: KLONOPIN TAB 1 MG PO PRN (19:15)
[2019-05-28] MEDS: DUONEB 0.5 MG/3 MG NEB SCH ×2 (00:20→05:17)
[2019-05-28] MEDS: NS 1000 ML 1,000 ML IV SCH ×2 (05:03→06:24)
[2019-05-28 05:21] LABS: BASOPHILS % (AUTO) 0.6 % (0.2-1.0); EOSINOPHILS # (AUTO) 0.1 x10^3/uL (0.0-0.2); EOSINOPHILS % (AUTO) 1.6 % (0.9-2.9); HEMATOCRIT 31.5 % (36.0-47.0); HEMOGLOBIN 10.2 g/dL (12.0-16.0); LYMPHOCYTES # (AUTO) 1.6 X10^3/uL (1.3-2.9); LYMPHOCYTES % (AUTO) 19.9 % (21.0-51.0); MEAN CORPUSCULAR HEMOGLOBIN 29.4 pg (27.0-34.0); MEAN CORPUSCULAR HGB CONC 32.5 g/dL (33.0-35.0); MEAN CORPUSCULAR VOLUME 90.4 fL (80.0-100.0); MEAN PLATELET VOLUME 10.4 fL (7.4-11.0); MONOCYTES # (AUTO) 0.8 x10^3/uL (0.3-0.8); MONOCYTES % (AUTO) 10.6 % (0.0-13.0); NEUTROPHILS # (AUTO) 5.4 x10^3/uL (2.2-4.8); NEUTROPHILS % (AUTO) 67.3 % (42.0-75.0); PLATELET COUNT 218 X10^3/uL (150.0-450.0); RED BLOOD COUNT 3.49 X10^6/uL (3.5-5.4); RED CELL DISTRIBUTION WIDTH 15.8 % (11.6-16.5)
[2019-05-28 05:33] LABS: CALCIUM 8.4 mg/dL (8.5-10.1); CARBON DIOXIDE 27.8 mmol/L (21-32); COR CA(FOR HYPOALB) 9.2 mg/dL (8.5-10.1); CREATININE 1.43 mg/dL (0.55-1.02); TOTAL PROTEIN 6.6 g/dL (6.4-8.2)
[2019-05-28] MEDS: HumuLIN R SC PRN (06:24)
[2019-05-28] MEDS: TENORMIN PO SCH (08:15)
[2019-05-28] MEDS: ROBITUSSIN DM PO SCH (08:15)
[2019-05-28] MEDS: PULMICORT NEB TX 0.5 MG NEB SCH (08:23)
[2019-05-28] MEDS ORDERED: PHARMACY CONSULT - DOSE _____ XX SCH (10:00)
[2019-05-28 13:28] VITALS: BP 140/64
[2019-05-28] MEDS ORDERED: LEVAQUIN PREMIX IV 500 MG 500 MG/100 ML BAG IV SCH (21:00)
== END 2019-05-28 13:00 | disposition home or self-care (01) ==
LOC: ER 20:43 → MED/SURG 05-27 03:01 → INTOOBSV 05-27 03:01 → MED/SURG 05-27 03:30
PROVIDERS: ADMIT Emergency Medicine; ATTEND Obstetrics & Gynecology Obstetrics
DX: N17.9 Acute kidney failure, unspecified; R06.02 Shortness of breath; Z99.81 Dependence on supplemental oxygen; E11.65 Type 2 diabetes mellitus with hyperglycemia; R94.31 Abnormal electrocardiogram [ECG] [EKG]; R94.4 Abnormal results of kidney function studies; M19.90 Unspecified osteoarthritis, unspecified site; J44.1 Chronic obstructive pulmonary disease with (acute) exacerbation
CPT/HCPCS: 36415; 71010; 71045; 80053; 82550; 82553; 82947; 84484; 85025; 87070; 87205; 93005; 94640; 94760; 96365; 96367; 96372; 96374; 96375; 99284; A4222; G0378; J1815; J1956; J2920; J2930; J7030; J7620; J7626

== ENCOUNTER 2021-01-12 01:52 | Observation (INO) ==
--- NOTE | 2021-01-12 02:18 | DR.SOBA ---
HPI Time Seen Time Seen by Provider: 01/12/21 02:10 Primary Care Physician Primary Care Physician: Kush HPI Comment HPI Comment: PATIENT IS 80YR OLD FEMALE IN ER VIA EMS WITH INCREASING SOB, CHEST CONGESTION AND INTERMITTENT JERKING. PATIENT HAVE HISTORY OF COPD AND CHF ON HOME O2 2L/MIN. SHE IS A SMOKER. SYMPTOMS STARTED YESTERDAY. HAVING MID STERNAL TIGHNESS RADIATING TO THE BACK. NO FEVER, VOMING, DIARRHEA OR DYSURIA. ALSO ON NEB TREATMENT AT HOME. SHE IS WHEELCHAIR PATIENT. PATIENT IS WEAK AND TIRED. Complaints Chief Complaint Doctors Comments: INCREASING SOB ON HOME O2, CHEST CONGESTION AND JERKING MOVEMENT. Chief Complaint:: SOB COVID-19 Coronavirus risk:travel/contact w/high risk person: No Has patient experienced Coronavirus symptoms: No Coronavirus symptoms experienced: Shortness of Breath Reviewed Nurses Notes Reviewed: Yes Source History Provided: Patient Mode of Arrival Mode of Arrival: Stretcher Timing Onset of Chief Complaint: 01/11/21 Duration Duration: Hours Context Onset:: At Rest PE Risk Factors:: None History of:: COPD and CHF Currently on:: Inhaled Bronchodilators Prehospital Care:: O2 Modifying Factors Worsens:: Exertion and Lying Flat Improves:: Rest and Sitting Up Associated Signs and Symptoms Associated Signs and Symptoms: Wheeze; denies Fever If Chest Pain Quality: Pleuritic (TIGHTNESS.) Location: Substernal (TIGHTNESS.) If Cough Cough: Nonproductive and Yellow Other History Other History: COPD, CHF AND HTN. PMH PMH Past Medical History: Yes Past Medical History: COPD and Hypertension Past Surgical History: Yes Surgical History: Hysterectomy Past Surgical History Comment: esophagus Family History History of Family Medical Conditions: Yes Family Medical History: Hypertension Social History Do you use any recreational Drugs:: No Travel Risk Coronavirus risk:travel/contact w/high risk person: No Has patient experienced Coronavirus symptoms: No Coronavirus symptoms experienced: Shortness of Breath Infectious screening Have you traveled outside the country in the last 6 months?: No Isolation: Standard ROS Review of Systems Constitutional: See HPI, Weakness and Fatigue; negative Fever Eyes: No Symptoms Reported and See HPI ENTM: See HPI, Nose Discharge and Nose Congestion Respiratoy: See HPI, Moist Cough and Short of Breath; negative Wheezing Cardiovascular: See HPI and Chest Pain; negative Edema and Palpitations Gastrointestinal/Abdominal: See HPI and Abdominal Pain; negative Diarrhea, Nausea and Vomiting Genitourinary: No Symptoms Reported, See HPI, Dysuria, Frequency and Hematuria Neurological: See HPI and Weakness; negative Headache and Dizziness Musculoskeletal: No Symptoms Reported and See HPI; negative Back Pain and Muscle Pain Integumentary: No Symptoms Reported and See HPI; negative Change in Color, Rash and Juandice Hematologic/Lymphatic: No Symptoms Reported and See HPI; negative Easy Bruising and Swollen Glands Endocrine: No Symptoms Reported and See HPI; negative Increased Thirst and Increased Urine Psychiatric: No Symptoms Reported and See HPI All Other Systems: Reviewed and Negative PE Vital Signs Vitals: Temperature 98.6 F Pulse Rate 104 Respiratory Rate 28 Blood Pressure [Left Arm] 164/68 Blood Pressure [Right Arm] 140/64 Blood Pressure 144/63 O2 Sat by Pulse Oximetry 93 General Limitations: No Limitations General Appearance: Alert and In No Apparent Distress Head Head Exam: Normal Inspection and Atraumatic Eyes Eye exam: Normal Appearance, PERRL and EOMI; negative Scleral Icterus and Conjunctival Injection ENT ENT Exam: Normal Exam, Normal Oropharynx, Normal External Ear Exam and TM's Normal Bilaterally Neck Neck Exam: Normal Inspection and Trachea Midline; negative Tenderness and Lymphadenopathy Chest Chest Inspection: Normal Inspection and Symmetric Chest Wall Rise; negative Tenderness Respiratory Respiratory Exam: Normal Lung Sounds Bilat; negative Accessory Muscle Use, Chest Wall Tenderness and Respiratory Distress Respiratory Exam: Bilateral: Rhonchi and Lower: Rhonchi Cardiovascular Cardiovascular Exam: Regular Rate, Normal Rhythm and Normal Heart Sounds; negative Systolic Murmur and Diastolic Murmur Abdominal Exam Abdominal Exam: Normal Inspection, Normal Bowel Sounds and Soft; negative Tenderness Extremities Extremities Exam: Normal Inspection and Normal Capillary Refill; negative Ten derness, Edema and Calf Tenderness Back Back Exam: Normal Inspection; negative (R) CVA Tenderness and (L) CVA Tenderness Neurologic Neurological Exam: Alert and Oriented X3; negative Motor Sensory Deficit Psychiatric Psychiatric Exam: Normal Affect and Normal Mood Skin Skin Exam: Warm, Dry, Intact and Normal Color MDM Differential Diagnosis Differential Diagnosis: Bronchitis, CHF, COPD, Mycardial Infarction, Pneumonia, Pneumothorax, Pulmonary embolism, Respiratory Insufficiency, Sinusitis and URI COURSE Treatment Treatment: SEE ORDERS. DUO NEB, SOLUMEDROL 125MG IV, ROCEPHIN 1GM IVPB AND LASIX 40MG IV IN ER. Reevaluation 1st: Improved Education/Counseling Education/Counseling: Patient Educated On: Diagnosis and Needs for Follow Up Education Comments: DISCUSSED PATIENT WITH DR. MARQUIS. HE WILL ADMIT PATIENT. ROR Labs Reviewed Laboratory Results Reviewed?: Yes Result Diagrams: 01/12/21 02:20 01/12/21 11:16 Laboratory: 01/12/21 04:35 Blood Blood Culture - Final 01/12/21 04:30 Blood Blood Culture - Final WBC 13.4 X10^3/uL (3.6-10.0) H 01/12/21 02:20 RBC 4.09 X10^6/uL (3.5-5.4) 01/12/21 02:20 Hgb 11.3 g/dL (12.0-16.0) L 01/12/21 02:20 Hct 36.3 % (36.0-47.0) 01/12/21 02:20 MCV 88.9 fL (80.0-100.0) 01/12/21 02:20 MCH 27.6 pg (27.0-34.0) 01/12/21 02:20 MCHC 31.0 g/dL (33.0-35.0) L 01/12/21 02:20 RDW 15.5 % (11.6-16.5) 01/12/21 02:20 Plt Count 245 X10^3/uL (150.0-450.0) 01/12/21 02:20 MPV 9.8 fL (7.4-11.0) 01/12/21 02:20 Neut % (Auto) 77.4 % (42.0-75.0) H 01/12/21 02:20 Lymph % (Auto) 12.6 % (21.0-51.0) L 01/12/21 02:20 [place] % (Auto) 7.7 % (0.0-13.0) 01/12/21 02:20 Eos % (Auto) 1.4 % (0.9-2.9) 01/12/21 02:20 Baso % (Auto) 0.9 % (0.2-1.0) 01/12/21 02:20 Neut # (Auto) 10.4 x10^3/uL (2.2-4.8) H 01/12/21 02:20 Lymph # (Auto) 1.7 X10^3/uL (1.3-2.9) 01/12/21 02:20 [place] # (Auto) 1.0 x10^3/uL (0.3-0.8) H 01/12/21 02:20 Eos # (Auto) 0.2 x10^3/uL (0.0-0.2) 01/12/21 02:20 Baso # (Auto) 0.1 X10^3/uL (0.0-0.1) 01/12/21 02:20 Absolute Nucleated RBC 0.0 /100WBC 01/12/21 02:20 Sample Site Lr 01/12/21 02:18 ABG pH 7.380 (7.35-7.45) 01/12/21 02:18 ABG pCO2 49.0 mmHg (35.0-45.0) H 01/12/21 02:18 ABG pO2 61.0 mmHg (80.0-100.0) L 01/12/21 02:18 ABG HCO3 29.0 mmol/L (22-26) H 01/12/21 02:18 ABG O2 Saturation 90.0 % (90-100) 01/12/21 02:18 ABG Base Excess 3.1 mmol/L (-2.0-2.0) H 01/12/21 02:18 Laci Test Pos 01/12/21 02:18 A-a Gradient 27.0 mmHg 01/12/21 02:18 FiO2 21.0 01/12/21 02:18 Blood Gas Comments Jr well sw 01/12/21 02:18 Sodium 143 mmol/L (136-145) 01/12/21 02:20 Corrected Sodium 148 mmol/L (136-145) H 01/12/21 02:20 Potassium 4.6 mmol/L (3.5-5.1) 01/12/21 02:20 Chloride 106 mmol/L (98-107) 01/12/21 02:20 Carbon Dioxide 28.5 mmol/L (21-32) 01/12/21 02:20 BUN 30 mg/dL (7-18) H 01/12/21 02:20 Creatinine 1.30 mg/dL (0.55-1.02) H 01/12/21 02:20 Est GFR (MDRD) Af Amer 51 (>60) L 01/12/21 02:20 Est GFR (MDRD) Non-Af 42 (>60) L 01/12/21 02:20 Glucose 313 mg/dL (65-99) H 01/12/21 02:20 Calcium 8.7 mg/dL (8.5-10.1) 01/12/21 02:20 Corrected Calcium 9.4 mg/dL (8.5-10.1) 01/12/21 02:20 Total Bilirubin 0.20 mg/dL (0.2-1.0) 01/12/21 02:20 AST 24 Units/L (15-37) 01/12/21 02:20 ALT 38 Units/L (12-78) 01/12/21 02:20 Alkaline Phosphatase 79 Units/L (46-116) 01/12/21 02:20 Creatine Kinase 39 Units/L (26-192) 01/12/21 02:20 CK-MB (CK-2) < 1.0 ng/mL (0-4.0) 01/12/21 02:20 CK/CKMB % Calc 2.6 % (<4) 01/12/21 02:20 Troponin I < 0.02 ng/mL (0-1.5) 01/12/21 02:20 B-Natriuretic Peptide 313 pg/mL (0-79) H 01/12/21 02:20 Total Protein 7.1 g/dL (6.4-8.2) 01/12/21 02:20 Albumin 3.1 g/dL (3.4-5.0) L 01/12/21 02:20 Globulin 4.0 g/dL (2.5-4.5) 01/12/21 02:20 Albumin/Globulin Ratio 0.8 Ratio (1.1-2.1) L 01/12/21 02:20 XRAY XRAY Interpreted by: Radiologist (REPORTS NOTED AND DISCUSSED WITH PATIENT.) and Self EKG Rate: 104 [place]: LAD Rhythm: ST Block: None Hypertrophy: LAE ST: Nonsp Opioid Opioid Risk Tool Age (Mateus box if 16-45): No Total: 0 Total Score Risk Category: Low Risk Copyright: Burnette predicting aberrant behaviors Diagnosis Discharge Problem: COPD with acute exacerbation, Hypoxia CHF (congestive heart failure) Qualifiers: Heart failure type: unspecified Heart failure chronicity: acute on chronic Qualified Code(s): I50.9 - Heart failure, unspecified Instructions Instructions: Anemia Hyperglycemia, [id number] Chronic Obstructive Pulmonary Disease Exacerbation, [id number] Hypertension, [id number] Preventing Diabetes Mellitus Complications Forms: Excuse From Work or School Precautions for COVID19 Patient Portal Social Distancing
[2021-01-12] MEDS ORDERED: SOLU-Medrol 40 MG VIAL IVP ONE (02:24)
[2021-01-12] MEDS ORDERED: DUONEB 0.5 MG/3 MG (3 mL) NEB ONE ×2 (02:24→02:37)
[2021-01-12] MEDS ORDERED: LASIX IVP ONE (02:24)
[2021-01-12] MEDS ORDERED: SOLU-Medrol 40 MG VIAL ONE (02:30)
[2021-01-12] MEDS ORDERED: LASIX ONE (02:30)
[2021-01-12 02:35] LABS: BASOPHILS # (AUTO) 0.1 X10^3/uL (0.0-0.1); BASOPHILS % (AUTO) 0.9 % (0.2-1.0); EOSINOPHILS # (AUTO) 0.2 x10^3/uL (0.0-0.2); EOSINOPHILS % (AUTO) 1.4 % (0.9-2.9); HEMATOCRIT 36.3 % (36.0-47.0); HEMOGLOBIN 11.3 g/dL (12.0-16.0); LYMPHOCYTES # (AUTO) 1.7 X10^3/uL (1.3-2.9); LYMPHOCYTES % (AUTO) 12.6 % (21.0-51.0); MEAN CORPUSCULAR HEMOGLOBIN 27.6 pg (27.0-34.0); MEAN CORPUSCULAR VOLUME 88.9 fL (80.0-100.0); MEAN PLATELET VOLUME 9.8 fL (7.4-11.0); MONOCYTES % (AUTO) 7.7 % (0.0-13.0); NEUTROPHILS # (AUTO) 10.4 x10^3/uL (2.2-4.8); NEUTROPHILS % (AUTO) 77.4 % (42.0-75.0); PLATELET COUNT 245 X10^3/uL (150.0-450.0); RED BLOOD COUNT 4.09 X10^6/uL (3.5-5.4); RED CELL DISTRIBUTION WIDTH 15.5 % (11.6-16.5); WHITE BLOOD COUNT 13.4 X10^3/uL (3.6-10.0)
[2021-01-12 02:47] LABS: ABG BASE EXCESS 3.1 mmol/L (-2.0-2.0)
[2021-01-12 02:48] LABS: ABG ALLEN TEST POS
[2021-01-12 02:49] LABS: BLOOD UREA NITROGEN 30 mg/dL (7-18); CALCIUM 8.7 mg/dL (8.5-10.1); CARBON DIOXIDE 28.5 mmol/L (21-32); CHLORIDE 106 mmol/L (98-107); COR NA(FOR HYPERGLY) 148 mmol/L (136-145); SODIUM 143 mmol/L (136-145); TROPONIN I < 0.02 ng/mL (0-1.5); eGFR NON BLACK RACES 42 (>60)
[2021-01-12 02:53] LABS: ALANINE AMINOTRANSFERASE 38 Units/L (12-78); ALBUMIN 3.1 g/dL (3.4-5.0); ALKALINE PHOSPHATASE 79 Units/L (46-116); ASPARTATE AMINO TRANSFERASE 24 Units/L (15-37); CKMB % 2.6 % (<4); COR CA(FOR HYPOALB) 9.4 mg/dL (8.5-10.1); CREATINE KINASE 39 Units/L (26-192); CREATINE KINASE MB < 1.0 ng/mL (0-4.0); TOTAL PROTEIN 7.1 g/dL (6.4-8.2)
[2021-01-12] MEDS ORDERED: ROCEPHIN VIAL 1 GRAM 1 G in NS 100 ML IV + SPIKE MINIBAG* 100 ML IV ONE (04:12)
[2021-01-12] MEDS ORDERED: ROCEPHIN VIAL 1 GRAM ONE (04:16)
[2021-01-12] MEDS ORDERED: NS 100 ML IV + SPIKE MINIBAG* 100 ML IV ONE (04:16)
--- NOTE | 2021-01-12 04:33 | RAD ---
STUDY: FRONTAL VIEW CHESTCOMPARISON: 10/09/2020HISTORY: PT C/O SOB SINCE 01/11/2021FINDINGS:Subsegmental atelectasis is noted.No focal consolidation is seen.The heart size is within normal limits.The mediastinum is unremarkable.There is no evidence of pleural effusion or gross pneumothorax.The trachea is midline.IMPRESSION:1. No focal consolidation is seen.2. The heart size is normal.Electronically signed by: Rigoberto Alcala (Jan 12, 2021 04:31:07)
--- NOTE | 2021-01-12 05:19 | CT ---
STUDY: CT HEAD WITHOUT IV CONTRASTCOMPARISON: NoneTECHNIQUE: axial images were acquired of the head without IV contrast. Coronal and sagittal images were provided. All images were reviewed in a variety of windows and levels.LIMITATIONS: Please note that CT has low sensitivity and accuracy for identifying acute infarction. In addition, there are portions of the brain that are affected by beam hardening artifact which further greatly limits identification of an acute infarct.RADIATION REDUCTION TECHNIQUE: Automated exposure control, Adjustment of the mA and/or kV according to patient size, or iterative reconstruction techniques were used.HISTORY: SANCHEZ AND JERKINGFINDINGS:There is diffuse cerebral atrophy with a regional distribution of low attenuation along the periventricular white matter most likely representing small vessel ischemic changes which are to a degree that would be considered within normal limits for the patient's stated age.There is no evidence of an acute intracranial bleed.There is no evidence of a mass or midline shift.There is no evidence of an extra-axial fluid collection.The pereira-white matter differentiation is within normal limits.The visualized bones are unremarkable.The visualized sinuses are clear.The mastoid air cells are well-aerated.IMPRESSION:1. INVOLUTIONAL CHANGES ARE PRESENT WITH FINDINGS SUGGESTING SMALL VESSEL ISCHEMIC DISEASE WHICH IS TO A DEGREE THAT WOULD BE CONSIDERED WITHIN NORMAL LIMITS FOR THE PATIENT'S STATED AGE.2. THERE IS NO EVIDENCE OF ACUTE INTRACRANIAL BLEED.Electronically signed by: Rigoberto Aclala (Jan 12, 2021 05:17:29)
[2021-01-12] MEDS ORDERED: DUONEB 0.5 MG/3 MG (3 mL) NEB SCH (06:00)
[2021-01-12] MEDS: HumuLIN R SC PRN ×2 (06:09→12:27)
[2021-01-12 08:24] VITALS: BMI 30.8
[2021-01-12 08:54] LABS: CKMB % 2.3 % (<4); CREATINE KINASE 43 Units/L (26-192); CREATINE KINASE MB < 1.0 ng/mL (0-4.0); TROPONIN I < 0.02 ng/mL (0-1.5)
[2021-01-12] MEDS ORDERED: TYLENOL 500 MG TAB EXTRA STRENGTH PO PRN (09:13)
[2021-01-12] MEDS ORDERED: ACCUNEB 1.25 MG NEBULE NEB PRN (09:22)
[2021-01-12] MEDS ORDERED: NS 100 ML IV 100 ML with VENOFER 400 MG IV NR ×2 (09:38)
[2021-01-12] MEDS ORDERED: LOVENOX INJ 40 MG SYR SC SCH (10:00)
[2021-01-12 12:13] VITALS: BP 140/70
[2021-01-12 15:17] LABS: CKMB % 2.4 % (<4); CREATINE KINASE 42 Units/L (26-192); CREATINE KINASE MB < 1.0 ng/mL (0-4.0); TROPONIN I < 0.02 ng/mL (0-1.5)
[2021-01-13] MEDS ORDERED: ROCEPHIN VIAL 1 GRAM 1 G in NS 100 ML IV + SPIKE MINIBAG* 100 ML IV SCH (09:00)
== END 2021-01-12 16:15 | disposition home or self-care (01) ==
LOC: ER 01:52 → MED/SURG 01:52
PROVIDERS: ADMIT Internal Medicine; ATTEND Obstetrics & Gynecology Obstetrics
DX: G25.81 Restless legs syndrome; R79.89 Other specified abnormal findings of blood chemistry; E11.65 Type 2 diabetes mellitus with hyperglycemia; G25.5 Other chorea; R94.31 Abnormal electrocardiogram [ECG] [EKG]; Z99.81 Dependence on supplemental oxygen; I50.9 Heart failure, unspecified; I11.0 Hypertensive heart disease with heart failure; R06.02 Shortness of breath; J44.1 Chronic obstructive pulmonary disease with (acute) exacerbation

== ENCOUNTER 2022-09-12 12:03 | Inpatient (IN) ==
--- NOTE | 2022-09-12 12:40 | DR.SOBA ---
HPI Time Seen Time Seen by Provider: 09/12/22 12:39 HPI Comment HPI Comment: An 82 y/o female brought into the ED by [facility] due to SOB. Reportedly the caller states her O2 sats was in the 50s. She has oxygen dependent COPD and is awaiting placement/delivery on BIPAP. Her O2 sat here is greater than 80s. Record review indicates that she was seen here about 24 hrs. ago for same c/o. Complaints Chief Complaint:: SHORTNESS OF BREATH Self Treatment fo Chief Complaint: 3L O2 NASAL CANNULA COVID-19 Coronavirus risk:travel/contact w/high risk person: No Has patient experienced Coronavirus symptoms: No Coronavirus symptoms experienced: Shortness of Breath Reviewed Nurses Notes Reviewed: Yes Source History Provided: EMS Mode of Arrival Mode of Arrival: EMS Timing Onset of Chief Complaint: 09/12/22 Context Onset:: At Rest PE Risk Factors:: Immobilization History of:: COPD and CHF Currently on:: Inhaled Bronchodilators Prehospital Care:: O2 Modifying Factors Worsens:: Nothing Improves:: Nothing Associated Signs and Symptoms Associated Signs and Symptoms: None If Cough Cough: None PMH PMH Past Medical History: Yes Past Medical History: CHF, COPD, Diabetes and VA Past Surgical History: Yes Surgical History: Hysterectomy and Ortho Surgery Family History History of Family Medical Conditions: Yes Family Medical History: Diabetes Mellitus, VA and Hypertension Social History Do you use any recreational Drugs:: No Travel Risk Coronavirus risk:travel/contact w/high risk person: No Has patient experienced Coronavirus symptoms: No Infectious screening Have you traveled outside the country in the last 6 months?: No Isolation: Standard ROS Review of Systems Constitutional: No Symptoms Reported Eyes: No Symptoms Reported ENTM: No Symptoms Reported Respiratoy: Short of Breath Cardiovascular: No Symptoms Reported Gastrointestinal/Abdominal: No Symptoms Reported Genitourinary: No Symptoms Reported Neurological: No Symptoms Reported Musculoskeletal: No Symptoms Reported Integumentary: No Symptoms Reported Hematologic/Lymphatic: No Symptoms Reported Endocrine: No Symptoms Reported Psychiatric: No Symptoms Reported All Other Systems: Reviewed and Negative PE Vital Signs Vitals: Temperature 98.9 F Pulse Rate 83 Respiratory Rate 24 Blood Pressure [Left Arm] 164/69 Blood Pressure 98/50 O2 Sat by Pulse Oximetry 99 General Limitations: No Limitations General Appearance: In No Apparent Distress and Other (She is asleep but easily aroused.) Head Head Exam: Normal Inspection, Atraumatic and Normocephalic Eyes Eye exam: Normal Appearance and EOMI ENT ENT Exam: Normal Exam, Normal Oropharynx, Normal External Ear Exam and Mucous Membranes Moist Neck Neck Exam: Normal Inspection, Full ROM and Trachea Midline Chest Chest Inspection: Normal Inspection and Symmetric Chest Wall Rise Respiratory Respiratory Exam: Normal Lung Sounds Bilat Cardiovascular Cardiovascular Exam: Regular Rate, Normal Rhythm, Normal Heart Sounds, +S1 and +S2 Abdominal Exam Abdominal Exam: Normal Inspection, Normal Bowel Sounds and Soft Extremities Extremities Exam: Normal Inspection and Full ROM Back Back Exam: Normal Inspection and Full ROM Neurologic Neurological Exam: Alert and Oriented X3 Psychiatric Psychiatric Exam: Normal Affect and Normal Mood Skin Skin Exam: Dry, Intact and Normal Color COURSE Education/Counseling Education/Counseling: Patient, Family, Education and Counseling Educated On: Treatment, Diagnosis, Prognosis and Needs for Follow Up ROR Labs Reviewed Result Diagrams: 09/12/22 12:47 09/12/22 12:47 Laboratory: WBC 13.2 X10^3/uL (3.6-10.0) H 09/12/22 12:47 RBC 3.04 X10^6/uL (3.5-5.4) L 09/12/22 12:47 Hgb 7.5 g/dL (12.0-16.0) L 09/12/22 12:47 Hct 25.2 % (36.0-47.0) L 09/12/22 12:47 MCV 82.9 fL (80.0-100.0) 09/12/22 12:47 MCH 24.6 pg (27.0-34.0) L 09/12/22 12:47 MCHC 29.6 g/dL (33.0-35.0) L 09/12/22 12:47 RDW 19.1 % (11.6-16.5) H 09/12/22 12:47 Plt Count 303 X10^3/uL (150.0-450.0) 09/12/22 12:47 Plt Count Comment Adequate (ADEQUATE) 09/12/22 12:47 MPV 9.4 fL (7.4-11.0) 09/12/22 12:47 Neut % (Auto) 86.2 % (42.0-75.0) H 09/12/22 12:47 Lymph % (Auto) 9.7 % (21.0-51.0) L 09/12/22 12:47 [place] % (Auto) 3.3 % (0.0-13.0) 09/12/22 12:47 Eos % (Auto) 0.1 % (0.9-2.9) L 09/12/22 12:47 Baso % (Auto) 0.7 % (0.2-1.0) 09/12/22 12:47 Neut # (Auto) 11.4 x10^3/uL (2.2-4.8) H 09/12/22 12:47 Lymph # (Auto) 1.3 X10^3/uL (1.3-2.9) 09/12/22 12:47 [place] # (Auto) 0.4 x10^3/uL (0.3-0.8) 09/12/22 12:47 Eos # (Auto) 0.0 x10^3/uL (0.0-0.2) 09/12/22 12:47 Baso # (Auto) 0.1 X10^3/uL (0.0-0.1) 09/12/22 12:47 Absolute Nucleated RBC 0.0 /100WBC 09/12/22 12:47 Plt Morphology Comment Normal (NORMAL) 09/12/22 12:47 RBC Morphology Normal (NORMAL) 09/12/22 12:47 Sample Site Lrad 09/12/22 17:24 ABG pH 7.280 (7.35-7.45) L 09/12/22 17:24 ABG pCO2 87.0 mmHg (35.0-45.0) H* 09/12/22 17:24 ABG pO2 137.0 mmHg (80.0-100.0) H 09/12/22 17:24 ABG HCO3 40.9 mmol/L (22-26) H* 09/12/22 17:24 ABG O2 Saturation 99.0 % (90-100) 09/12/22 17:24 ABG Base Excess 10.8 mmol/L (-2.0-2.0) H 09/12/22 17:24 Laci Test Pos 09/12/22 17:24 A-a Gradient 111.0 mmHg 09/12/22 17:24 FiO2 50.0 09/12/22 17:24 Blood Gas Comments Pt maria l well elj cdn 09/12/22 17:24 Sodium 140 mmol/L (136-145) 09/12/22 12:47 Corrected Sodium 143 mmol/L (136-145) 09/12/22 12:47 Potassium 4.8 mmol/L (3.5-5.1) 09/12/22 12:47 Chloride 99 mmol/L (98-107) 09/12/22 12:47 Carbon Dioxide 30.6 mmol/L (21-32) 09/12/22 12:47 BUN 32 mg/dL (7-18) H 09/12/22 12:47 Creatinine 1.93 mg/dL (0.55-1.02) H 09/12/22 12:47 Est GFR (MDRD) Af Amer 32 (>60) L 09/12/22 12:47 Est GFR (MDRD) Non-Af 26 (>60) L 09/12/22 12:47 Glucose 229 mg/dL (65-99) H 09/12/22 12:47 Calcium 8.9 mg/dL (8.5-10.1) 09/12/22 12:47 Corrected Calcium 10.0 mg/dL (8.5-10.1) 09/12/22 12:47 Total Bilirubin 0.50 mg/dL (0.2-1.0) 09/12/22 12:47 AST 180 Units/L (15-37) H 09/12/22 12:47 ALT 167 Units/L (12-78) H 09/12/22 12:47 Alkaline Phosphatase 114 Units/L (46-116) 09/12/22 12:47 Total Protein 7.1 g/dL (6.4-8.2) 09/12/22 12:47 Albumin 2.6 g/dL (3.4-5.0) L 09/12/22 12:47 Globulin 4.5 g/dL (2.5-4.5) 09/12/22 12:47 Albumin/Globulin Ratio 0.6 Ratio (1.1-2.1) L 09/12/22 12:47 Opioid Opioid Risk Tool Age (Mateus box if 16-45): No History of Preadolescent Sexual Abuse: No Total: 0 Total Score Risk Category: Low Risk Copyright: Vasile SOLOMON predicting aberrant behaviors Discharge Plan Diagnosis Discharge Problem: Acute respiratory acidosis, CHF (congestive heart failure), NYHA class III, COPD exacerbation, Normocytic hypochromic anemia Discharge Plan Patient Disposition: 09 ADMITTED INPATIENT Condition: Stable
[2022-09-12 12:56] LABS: BASOPHILS # (AUTO) 0.1 X10^3/uL (0.0-0.1); BASOPHILS % (AUTO) 0.7 % (0.2-1.0); EOSINOPHILS % (AUTO) 0.1 % (0.9-2.9); HEMATOCRIT 25.2 % (36.0-47.0); HEMOGLOBIN 7.5 g/dL (12.0-16.0); LYMPHOCYTES # (AUTO) 1.3 X10^3/uL (1.3-2.9); LYMPHOCYTES % (AUTO) 9.7 % (21.0-51.0); MEAN CORPUSCULAR HEMOGLOBIN 24.6 pg (27.0-34.0); MEAN CORPUSCULAR HGB CONC 29.6 g/dL (33.0-35.0); MEAN CORPUSCULAR VOLUME 82.9 fL (80.0-100.0); MEAN PLATELET VOLUME 9.4 fL (7.4-11.0); MONOCYTES # (AUTO) 0.4 x10^3/uL (0.3-0.8); MONOCYTES % (AUTO) 3.3 % (0.0-13.0); NEUTROPHILS # (AUTO) 11.4 x10^3/uL (2.2-4.8); NEUTROPHILS % (AUTO) 86.2 % (42.0-75.0); RED BLOOD COUNT 3.04 X10^6/uL (3.5-5.4); RED CELL DISTRIBUTION WIDTH 19.1 % (11.6-16.5); WHITE BLOOD COUNT 13.2 X10^3/uL (3.6-10.0)
[2022-09-12 13:10] LABS: ALBUMIN 2.6 g/dL (3.4-5.0); CALCIUM 8.9 mg/dL (8.5-10.1); CARBON DIOXIDE 30.6 mmol/L (21-32); CREATININE 1.93 mg/dL (0.55-1.02); TOTAL PROTEIN 7.1 g/dL (6.4-8.2)
[2022-09-12 13:17] LABS: PLATELET MORPHOLOGY COMMENT NORMAL (NORMAL)
[2022-09-12 13:33] LABS: ABG BASE EXCESS 7.3 mmol/L (-2.0-2.0)
[2022-09-12 13:34] LABS: ABG HCO3 37.7 mmol/L (22-26)
--- NOTE | 2022-09-12 13:52 | RAD ---
HISTORYSOBSTUDYPortable AP chestCOMPARISONDecember 2021FINDINGSSimilar normal heart size. Persistent pulmonary vascular congestion with fuse pulmonary densities suggesting atelectasis and/or edema. There is no evidence for developing consolidation. A small left pleural effusion may be present.IMPRESSIONNo change in appearance of heart or lungs. Suspect small left pleural effusion.Electronically signed by: DEANN MORALES (Sep 12, 2022 13:51:02)
[2022-09-12] MEDS ORDERED: SOLU-Medrol 125 MG VIAL IVP ONE (17:16)
[2022-09-12] MEDS ORDERED: SOLU-Medrol 125 MG VIAL ONE (17:17)
[2022-09-12 17:33] LABS: ABG BASE EXCESS 10.8 mmol/L (-2.0-2.0)
[2022-09-12 17:34] LABS: ABG HCO3 40.9 mmol/L (22-26)
[2022-09-12 17:35] LABS: ABG ALLEN TEST POS
[2022-09-12 18:51] VITALS: BMI 30.2
[2022-09-12] MEDS ORDERED: DUONEB 0.5 MG/3 MG (3 mL) NEB ONE (19:17)
[2022-09-12] MEDS ORDERED: PULMICORT NEB TX 0.5 MG NEB ONE (19:17)
[2022-09-12 20:56] LABS: ABG BASE EXCESS 11.3 mmol/L (-2.0-2.0)
[2022-09-12 20:57] LABS: ABG ALLEN TEST POS; ABG HCO3 39.5 mmol/L (22-26)
[2022-09-12] MEDS: DUONEB 0.5 MG/3 MG (3 mL) NEB SCH (21:00)
[2022-09-12] MEDS: PULMICORT NEB TX 0.5 MG NEB SCH (21:00)
[2022-09-12] MEDS: MIRAPEX TAB 1 MG PO SCH (22:35)
[2022-09-12] MEDS: ULTRAM PO PRN (22:35)
[2022-09-12] MEDS: LIPITOR TAB 20 MG PO SCH (22:35)
[2022-09-12] MEDS: KLONOPIN TAB 1 MG PO PRN (22:36)
[2022-09-13] MEDS ORDERED: SALINE 0.9% 3 ML NEB TX ONE (00:02)
[2022-09-13] MEDS: DUONEB 0.5 MG/3 MG (3 mL) NEB SCH ×6 (01:00→21:28)
[2022-09-13 05:12] LABS: ABG BASE EXCESS 9.8 mmol/L (-2.0-2.0)
[2022-09-13 05:13] LABS: ABG ALLEN TEST POS; ABG HCO3 39.4 mmol/L (22-26)
[2022-09-13 05:26] LABS: BASOPHILS % (AUTO) 0.3 % (0.2-1.0); HEMATOCRIT 23.7 % (36.0-47.0); HEMOGLOBIN 7.3 g/dL (12.0-16.0); LYMPHOCYTES # (AUTO) 0.3 X10^3/uL (1.3-2.9); LYMPHOCYTES % (AUTO) 3.6 % (21.0-51.0); MEAN CORPUSCULAR HEMOGLOBIN 24.7 pg (27.0-34.0); MEAN CORPUSCULAR HGB CONC 30.6 g/dL (33.0-35.0); MEAN CORPUSCULAR VOLUME 80.9 fL (80.0-100.0); MEAN PLATELET VOLUME 9.6 fL (7.4-11.0); MONOCYTES # (AUTO) 0.1 x10^3/uL (0.3-0.8); MONOCYTES % (AUTO) 1.4 % (0.0-13.0); NEUTROPHILS # (AUTO) 8.8 x10^3/uL (2.2-4.8); NEUTROPHILS % (AUTO) 94.7 % (42.0-75.0); RED BLOOD COUNT 2.94 X10^6/uL (3.5-5.4); RED CELL DISTRIBUTION WIDTH 19.6 % (11.6-16.5); WHITE BLOOD COUNT 9.3 X10^3/uL (3.6-10.0)
[2022-09-13 05:41] LABS: ALBUMIN 2.4 g/dL (3.4-5.0); CALCIUM 8.5 mg/dL (8.5-10.1); CARBON DIOXIDE 34.1 mmol/L (21-32); COR CA(FOR HYPOALB) 9.8 mg/dL (8.5-10.1); CREATININE 1.88 mg/dL (0.55-1.02); TOTAL PROTEIN 6.8 g/dL (6.4-8.2)
[2022-09-13 05:53] LABS: ANISOCYTOSIS SLIGHT; HYPOCHROMASIA 2+; PLATELET MORPHOLOGY COMMENT NORMAL (NORMAL)
[2022-09-13 05:54] LABS: PAPPENHEIMER BODIES PRESENT; STOMATOCYTES PRESENT
--- NOTE | 2022-09-13 08:06 | RAD ---
HISTORYCOPD, RESPIRATORY ACIDOSISSTUDYCHEST, 1 [id number]/2022.TECHNIQUEAP view of the chestFINDINGSCardiac and mediastinal contours are within normal limits. Mild bibasilar patchy opacities remain. There is blunting left costophrenic sulcus. No pneumothorax.IMPRESSIONMild bibasilar atelectasis versus infiltrate. Blunted left costophrenic sulcus can be seen with small pleural effusion or pleuro-parynchemal scarring.Electronically signed by: Naseem Ford (Sep 13, 2022 08:04:32)
[2022-09-13] MEDS: PULMICORT NEB TX 0.5 MG NEB SCH ×2 (08:13→21:28)
[2022-09-13] MEDS: PriLOSEC PO SCH (10:00)
[2022-09-13] MEDS: LEVAQUIN PREMIX IV 750 MG 750 MG/150 ML BAG IV SCH (10:00)
[2022-09-13] MEDS: MIRAPEX TAB 1 MG PO SCH ×2 (10:00→21:35)
[2022-09-13] MEDS: SOLU-Medrol 40 MG VIAL IVP SCH ×3 (10:00→21:35)
[2022-09-13] MEDS: VSL#3 PO SCH (10:00)
[2022-09-13 11:25] LABS: ABG BASE EXCESS 8.9 mmol/L (-2.0-2.0)
[2022-09-13 11:26] LABS: ABG HCO3 36.1 mmol/L (22-26)
[2022-09-13] MEDS: NS 1,000 ML IV 1,000 ML IV SCH (19:45)
[2022-09-13] MEDS: LIPITOR TAB 20 MG PO SCH (21:35)
[2022-09-14] MEDS: DUONEB 0.5 MG/3 MG (3 mL) NEB SCH ×6 (01:00→20:10)
[2022-09-14] MEDS: ULTRAM PO PRN (02:54)
[2022-09-14 05:05] LABS: BASOPHILS # (AUTO) 0.1 X10^3/uL (0.0-0.1); EOSINOPHILS % (AUTO) 0.2 % (0.9-2.9); HEMATOCRIT 21.3 % (36.0-47.0); LYMPHOCYTES # (AUTO) 0.2 X10^3/uL (1.3-2.9); LYMPHOCYTES % (AUTO) 3.9 % (21.0-51.0); MEAN CORPUSCULAR HEMOGLOBIN 24.8 pg (27.0-34.0); MEAN CORPUSCULAR HGB CONC 31.4 g/dL (33.0-35.0); MEAN CORPUSCULAR VOLUME 79.1 fL (80.0-100.0); MEAN PLATELET VOLUME 9.5 fL (7.4-11.0); MONOCYTES # (AUTO) 0.2 x10^3/uL (0.3-0.8); MONOCYTES % (AUTO) 3.1 % (0.0-13.0); NEUTROPHILS # (AUTO) 5.1 x10^3/uL (2.2-4.8); NEUTROPHILS % (AUTO) 91.8 % (42.0-75.0); WHITE BLOOD COUNT 5.6 X10^3/uL (3.6-10.0)
[2022-09-14] MEDS: SOLU-Medrol 40 MG VIAL IVP SCH ×3 (05:09→20:53)
[2022-09-14 05:21] LABS: ALBUMIN 2.5 g/dL (3.4-5.0); CALCIUM 8.3 mg/dL (8.5-10.1); CARBON DIOXIDE 30.9 mmol/L (21-32); COR CA(FOR HYPOALB) 9.5 mg/dL (8.5-10.1); CREATININE 1.93 mg/dL (0.55-1.02); TOTAL PROTEIN 6.6 g/dL (6.4-8.2)
[2022-09-14 05:44] LABS: BAND NEUTROPHILS % 2 % (0-10); HEMOGLOBIN 6.7 g/dL (12.0-16.0)
[2022-09-14 05:45] LABS: ANISOCYTOSIS SLIGHT; HYPOCHROMASIA 2+; MICROCYTOSIS SLIGHT; PLATELET MORPHOLOGY COMMENT NORMAL (NORMAL); STOMATOCYTES PRESENT
[2022-09-14] MEDS ORDERED: NovoLIN R (or HumuLIN R) SUBCUT PRN (08:46)
[2022-09-14] MEDS: PULMICORT NEB TX 0.5 MG NEB SCH ×2 (08:47→20:10)
[2022-09-14] MEDS ORDERED: INFeD or DEXFERRUM 25 MG in NS 100 ML IV 100 ML IV ONE (09:00)
[2022-09-14] MEDS: VSL#3 PO SCH (09:16)
[2022-09-14] MEDS: PriLOSEC PO SCH (09:17)
[2022-09-14] MEDS: MIRAPEX TAB 1 MG PO SCH ×2 (09:18→20:52)
[2022-09-14] MEDS ORDERED: INFeD or DEXFERRUM 975 MG in NS 500 ML IV 500 ML IV ONE (10:00)
[2022-09-14] MEDS: NovoLIN R (or HumuLIN R) SUBCUT PRN ×3 (12:27→21:22)
[2022-09-14] MEDS: NS 1,000 ML IV 1,000 ML IV SCH (14:21)
[2022-09-14] MEDS ORDERED: NS 250 ML IV 250 ML IV ONE (14:36)
[2022-09-14 19:39] LABS: HEMATOCRIT 28.1 % (36.0-47.0); HEMOGLOBIN 8.6 g/dL (12.0-16.0)
[2022-09-14] MEDS: KLONOPIN TAB 1 MG PO PRN (20:53)
[2022-09-14] MEDS: LIPITOR TAB 20 MG PO SCH (20:53)
[2022-09-14] MEDS: SNACK - Diabetic Appropriate PO SCH (20:54)
[2022-09-15] MEDS: DUONEB 0.5 MG/3 MG (3 mL) NEB SCH ×6 (01:00→20:14)
[2022-09-15 05:27] LABS: BASOPHILS # (AUTO) 0.1 X10^3/uL (0.0-0.1); BASOPHILS % (AUTO) 0.7 % (0.2-1.0); HEMOGLOBIN 8.2 g/dL (12.0-16.0); LYMPHOCYTES # (AUTO) 0.2 X10^3/uL (1.3-2.9); LYMPHOCYTES % (AUTO) 2.6 % (21.0-51.0); MEAN CORPUSCULAR HEMOGLOBIN 25.5 pg (27.0-34.0); MEAN CORPUSCULAR HGB CONC 31.4 g/dL (33.0-35.0); MEAN CORPUSCULAR VOLUME 81.4 fL (80.0-100.0); MEAN PLATELET VOLUME 9.2 fL (7.4-11.0); MONOCYTES # (AUTO) 0.6 x10^3/uL (0.3-0.8); MONOCYTES % (AUTO) 7.5 % (0.0-13.0); NEUTROPHILS # (AUTO) 6.9 x10^3/uL (2.2-4.8); NEUTROPHILS % (AUTO) 89.2 % (42.0-75.0); RED CELL DISTRIBUTION WIDTH 18.7 % (11.6-16.5); WHITE BLOOD COUNT 7.7 X10^3/uL (3.6-10.0)
[2022-09-15 05:56] LABS: ALBUMIN 2.4 g/dL (3.4-5.0); CALCIUM 8.4 mg/dL (8.5-10.1); CARBON DIOXIDE 33.1 mmol/L (21-32); COR CA(FOR HYPOALB) 9.7 mg/dL (8.5-10.1); CREATININE 1.33 mg/dL (0.55-1.02); TOTAL PROTEIN 6.4 g/dL (6.4-8.2)
[2022-09-15 06:00] LABS: ABG BASE EXCESS 8.4 mmol/L (-2.0-2.0)
[2022-09-15 06:03] LABS: ABG ALLEN TEST POS
[2022-09-15] MEDS: PULMICORT NEB TX 0.5 MG NEB SCH ×2 (08:10→20:14)
[2022-09-15] MEDS: SOLU-Medrol 40 MG VIAL IVP SCH ×2 (09:23→21:53)
[2022-09-15] MEDS: PriLOSEC PO SCH (09:23)
[2022-09-15] MEDS: VSL#3 PO SCH (09:23)
[2022-09-15] MEDS: MIRAPEX TAB 1 MG PO SCH ×2 (09:30→21:53)
[2022-09-15] MEDS: LASIX IVP SCH ×2 (09:30→18:09)
[2022-09-15] MEDS: LEVAQUIN PREMIX IV 750 MG 750 MG/150 ML BAG IV SCH (09:30)
--- NOTE | 2022-09-15 10:19 | RAD ---
HISTORYShortness of breathSTUDYChest AP [id number]/19/2022FINDINGSThe heart is enlarged. No definite congestive heart failure is identified. Perihilar interstitial infiltrate is new involve the right upper lobe. Remainder of the lung figueroa appear clear. Small right pleural effusion is present. Bony thorax is unremarkable.IMPRESSIONNo change cardiomegaly without congestive heart failureNew perihilar interstitial right upper lobe infiltrateRemainder of the lung figueroa appear clearSmall right pleural effusionElectronically signed by: BENSON VILLANUEVA (Sep 15, 2022 10:17:59)
[2022-09-15] MEDS ORDERED: MAALOX or MYLANTA PO PRN (14:13)
[2022-09-15] MEDS: NS 1,000 ML IV 1,000 ML IV SCH (14:18)
--- NOTE | 2022-09-15 14:30 | EKG ---
Test Reason : chest pain Blood Pressure : */* mmHG Vent. Rate : 89 BPM Atrial Rate : 89 BPM P-R Int : 160 ms QRS Dur : 84 ms QT Int : 362 ms P-R-T Axes : 71 -3 46 degrees QTc Int : 440 ms Sinus rhythm with occasional premature ventricular complexes Possible Left atrial enlargement Minimal voltage criteria for LVH, may be normal variant ( Charly product ) Borderline ECG When compared with ECG of 11-AUG-2022 13:56, premature ventricular complexes are now present ST elevation now present in Anterior leads T wave inversion no longer evident in Inferior leads T wave inversion no longer evident in Anterior leads Confirmed by Chris Mathis ([id number]) on 09/16/2022 8:00:27 AM Referred By: Confirmed By: Chris Mathis
[2022-09-15] MEDS: NovoLIN R (or HumuLIN R) SUBCUT PRN (17:53)
[2022-09-15] MEDS: LIPITOR TAB 20 MG PO SCH (21:53)
[2022-09-15] MEDS: SNACK - Diabetic Appropriate PO SCH (21:53)
[2022-09-16] MEDS: DUONEB 0.5 MG/3 MG (3 mL) NEB SCH ×5 (00:46→15:47)
[2022-09-16] MEDS: KLONOPIN TAB 1 MG PO PRN (01:28)
[2022-09-16] MEDS: NS 1,000 ML IV 1,000 ML IV SCH ×2 (03:36→14:30)
[2022-09-16 04:39] LABS: BASOPHILS % (AUTO) 0.3 % (0.2-1.0); HEMATOCRIT 25.5 % (36.0-47.0); LYMPHOCYTES # (AUTO) 0.2 X10^3/uL (1.3-2.9); LYMPHOCYTES % (AUTO) 2.4 % (21.0-51.0); MEAN CORPUSCULAR HEMOGLOBIN 25.3 pg (27.0-34.0); MEAN CORPUSCULAR HGB CONC 31.5 g/dL (33.0-35.0); MEAN CORPUSCULAR VOLUME 80.3 fL (80.0-100.0); MEAN PLATELET VOLUME 9.1 fL (7.4-11.0); MONOCYTES # (AUTO) 0.5 x10^3/uL (0.3-0.8); NEUTROPHILS # (AUTO) 8.9 x10^3/uL (2.2-4.8); NEUTROPHILS % (AUTO) 92.3 % (42.0-75.0); RED BLOOD COUNT 3.17 X10^6/uL (3.5-5.4); RED CELL DISTRIBUTION WIDTH 19.1 % (11.6-16.5); WHITE BLOOD COUNT 9.6 X10^3/uL (3.6-10.0)
[2022-09-16 04:58] LABS: ANISOCYTOSIS SLIGHT; HYPOCHROMASIA SLIGHT; PLATELET MORPHOLOGY COMMENT NORMAL (NORMAL); STOMATOCYTES PRESENT
[2022-09-16 05:11] LABS: ALBUMIN 2.4 g/dL (3.4-5.0); CALCIUM 8.5 mg/dL (8.5-10.1); CARBON DIOXIDE 34.5 mmol/L (21-32); COR CA(FOR HYPOALB) 9.8 mg/dL (8.5-10.1); CREATININE 1.24 mg/dL (0.55-1.02)
[2022-09-16] MEDS: NovoLIN R (or HumuLIN R) SUBCUT PRN (06:06)
[2022-09-16] MEDS: PULMICORT NEB TX 0.5 MG NEB SCH (08:10)
[2022-09-16] MEDS: MIRAPEX TAB 1 MG PO SCH (09:29)
[2022-09-16] MEDS: PriLOSEC PO SCH (09:29)
[2022-09-16] MEDS: SOLU-Medrol 40 MG VIAL IVP SCH (09:29)
[2022-09-16] MEDS: VSL#3 PO SCH (09:30)
--- NOTE | 2022-09-16 14:24 | RAD ---
HISTORYSOB, COPD, RESPIRATORY FAILURESTUDYCHEST, 1 [id number]/21/2022FINDINGSThe focal abnormality which was present in the right upper lung is less prominent suggesting improved pneumonia.There is also less venous congestion than previous.Possible small pleural effusionsCardiomegaly is present. Vascular calcifications are present compatible with atherosclerosis.Degenerative changes are present in the spine. Levoconvex scoliosis.EKG leads are noted. There is an anchor suture in the right humerus.IMPRESSION1. Improved right upper lobe pneumonia2. Decreased venous congestion3. Stable cardiomegalyElectronically signed by: Tomas Quintanilla (Sep 16, 2022 14:22:46)
[2022-09-16 17:41] VITALS: BP 173/83
== END 2022-09-16 17:19 | disposition home health service (06) | DRG 189 ==
LOC: ER 12:03 → MED/SURG 17:57
PROVIDERS: ADMIT Internal Medicine; ATTEND Obstetrics & Gynecology Obstetrics
DX: Z20.822 Contact with and (suspected) exposure to COVID-19; J44.1 Chronic obstructive pulmonary disease with (acute) exacerbation; I10 Essential (primary) hypertension; R07.9 Chest pain, unspecified; J96.21 Acute and chronic respiratory failure with hypoxia; J90 Pleural effusion, not elsewhere classified; J96.22 Acute and chronic respiratory failure with hypercapnia; Z99.81 Dependence on supplemental oxygen; E11.65 Type 2 diabetes mellitus with hyperglycemia; I25.10 Atherosclerotic heart disease of native coronary artery without angina pectoris; D50.9 Iron deficiency anemia, unspecified; J98.11 Atelectasis; R26.89 Other abnormalities of gait and mobility

== ENCOUNTER 2022-10-16 18:10 | Inpatient (IN) ==
--- NOTE | 2022-10-16 19:19 | DR.SOBA ---
HPI Time Seen Time Seen by Provider: 10/16/22 19:18 Primary Care Physician Primary Care Physician: Lore HPI Comment HPI Comment: PATIENT IS IS 82YR OLD FEMALE IN ER WITH INCRASING SOB, WEAKNESS AND HYPOXIA WITH CONFUSION. HAD LEFT CAROTID ENDARTERECTOMY 2 DAYS AGO AND WAS DISCHARGED HOME TODAY. WHEN SHE GOT HOME , SEVERE HYPOXIA NOTED WITH SOB. HER OXYGEN TUBING WAS KINKED AND WAS NOT RECEIVING ENOUGH OXYGEN. PLACED ON NR MASK AND TRANSPORTED TO ER WITH 97 O2 SAT. SHE IS TALKING AND ANSWERING QUESTIONS BUT SHE IS SLEEPY. NO FEVER. DAUGHTER SAID PATIENT WAS FULLY ALERT WHEN THEY LEFT [place]. DENIES CHEST PAIN OR ABDOMINAL PAIN. Complaints Chief Complaint Doctors Comments: SOB, HYPOXIA AND GENERALIZED WEAKNESS WITH CONFUSION. Chief Complaint:: SOB and weakness, hypoxia. EMS state they found patient with O2 line kinked and sat at 30%, however patient was not cyanotic, and after Non rebreather at 10 lpm patient sats increased to 97%, patient lethargic but did r espond to verbal stimuli COVID-19 Coronavirus risk:travel/contact w/high risk person: No Has patient experienced Coronavirus symptoms: No Reviewed Nurses Notes Reviewed: Yes Source History Provided: EMS Mode of Arrival Mode of Arrival: EMS Timing Onset of Chief Complaint: 10/16/22 PMH PMH Past Medical History: Yes Past Medical History: Anemia, Anxiety, Arthritis, CHF, COPD, Coronary Artery Disease, Diabetes, Dyslipidemia, GERD, Hypertension, HI and Renal Disease Past Surgical History: Yes Surgical History: Hysterectomy and Ortho Surgery Past Surgical History Comment: Recent Carotid endartectomy Family History History of Family Medical Conditions: Yes Family Medical History: Diabetes Mellitus, HI, Coronary Artery Disease, Heart Failure and Hypertension Social History Does patient currently use any type of tobacco product: No Have you used tobacco products in the last 12 months: No Type of Tobacco Use: None Does any household member use tobacco: No Alcohol Use: None Do you use any recreational Drugs:: No Lives With: Family Lives Where: Home Travel Risk Coronavirus risk:travel/contact w/high risk person: No Has patient experienced Coronavirus symptoms: No Infectious screening In the last 2 months have you had wt loss of >10#?: NO Have you had fever, night sweats or hemotysis?: No Have you traveled outside the country in the last 6 months?: No Isolation: Standard ROS Review of Systems Constitutional: Weakness and Fatigue; negative Fever Eyes: No Symptoms Reported ENTM: Nose Congestion; negative Nose Discharge Respiratoy: Moist Cough and Short of Breath; negative Wheezing Cardiovascular: Edema; negative Chest Pain Gastrointestinal/Abdominal: negative Abdominal Pain, Diarrhea, Nausea or Vomiting Genitourinary: No Symptoms Reported; negative Dysuria Neurological: Weakness; negative Headache or Dizziness Musculoskeletal: Neck Pain (AREA OF SURGERY IS SORE.) Integumentary: negative Rash or Juandice Hematologic/Lymphatic: Easy Bleeding and Easy Bruising; negative Swollen Glands Endocrine: No Symptoms Reported; negative Increased Thirst or Increased Urine Psychiatric: No Symptoms Reported All Other Systems: Reviewed and Negative PE Vital Signs Vitals: Temperature 98.4 F Pulse Rate 97 Respiratory Rate 25 Blood Pressure [Left Arm] 148/68 Blood Pressure 107/53 O2 Sat by Pulse Oximetry 94 General Limitations: No Limitations General Appearance: Alert and In Distress Head Head Exam: Normal Inspection and Atraumatic Eyes Eye exam: Normal Appearance; negative Scleral Icterus or Conjunctival Injection ENT ENT Exam: Normal Exam, Normal Oropharynx, Normal External Ear Exam and TM's Normal Bilaterally Neck Neck Exam: Trachea Midline and Other (LEEFT CAROTID ENARECTOMY.) Chest Chest Inspection: Symmetric Chest Wall Rise; negative Tenderness Respiratory Respiratory Exam: Accessory Muscle Use, Chest Wall Tenderness and Respiratory Distress Cardiovascular Cardiovascular Exam: Regular Rate, Normal Rhythm, Normal Heart Sounds and Systolic Murmur; negative Diastolic Murmur Abdominal Exam Abdominal Exam: Normal Bowel Sounds, Soft and Tenderness Extremities Extremities Exam: Normal Capillary Refill and Edema Back Back Exam: negative (R) CVA Tenderness or (L) CVA Tenderness Neurologic Neurological Exam: Alert and Oriented X3; negative Motor Sensory Deficit Psychiatric Psychiatric Exam: Normal Affect, Normal Mood and Anxious Skin Skin Exam: Other (MULTIPLE BRUISING.) MDM Differential Diagnosis Differential Diagnosis: COPD, Hyponatremia, Mycardial Infarction, Pneumonia, Pneumothorax, Respiratory Insufficiency and URI COURSE Treatment Treatment: SEE ORDERS DONE WHILE PATIENT WAS IN ER. PATIENT TROPONIN WAS SLIGHTLY HIGH BEFORE ADMISSION. DR. STRICKLAND WAS NOT TOLD. WANTS ME TO ARRANGE TRANSFER FOR HI IN THIS PATIENT. [facility] ACCEPTED PATIENT FOR TRANSTFER BY DR. BUENO. Consultation Consultation Comments: DISCUSSED PATIENT WITH DR. STRICKLAND. SHE WILL ADMIT PATIENT. Education/Counseling Education/Counseling: Patient and Family Educated On: Diagnosis ROR Labs Reviewed Laboratory Results Reviewed?: Yes Result Diagrams: 10/16/22 20:30 10/16/22 20:30 Laboratory: WBC 13.7 X10^3/uL (3.6-10.0) H 10/16/22 20: RBC 4.07 X10^6/uL (3.5-5.4) 10/16/22 20: Hgb 10.9 g/dL (12.0-16.0) L 10/16/22 20: Hct 35.3 % (36.0-47.0) L 10/16/22 20: MCV 86.6 fL (80.0-100.0) 10/16/22 20: MCH 26.8 pg (27.0-34.0) L 10/16/22 20: MCHC 30.9 g/dL (33.0-35.0) L 10/16/22 20: RDW 22.4 % (11.6-16.5) H 10/16/22 20: Plt Count 193 X10^3/uL (150.0-450.0) 10/16/22 20: Plt Count Comment Adequate (ADEQUATE) 10/16/22 20: MPV 9.6 fL (7.4-11.0) 10/16/22 20: Neut % (Auto) 91.3 % (42.0-75.0) H 10/16/22 20: Lymph % (Auto) 3.6 % (21.0-51.0) L 10/16/22 20: [place] % (Auto) 4.6 % (0.0-13.0) 10/16/22 20: Eos % (Auto) 0.0 % (0.9-2.9) L 10/16/22 20: Baso % (Auto) 0.5 % (0.2-1.0) 10/16/22 20: Neut # (Auto) 12.5 x10^3/uL (2.2-4.8) H 10/16/22 20:30 Lymph # (Auto) 0.5 X10^3/uL (1.3-2.9) L 10/16/22 20:30 [place] # (Auto) 0.6 x10^3/uL (0.3-0.8) 10/16/22 20:30 Eos # (Auto) 0.0 x10^3/uL (0.0-0.2) 10/16/22 20:30 Baso # (Auto) 0.1 X10^3/uL (0.0-0.1) 10/16/22 20:30 Absolute Nucleated RBC 0.0 /100WBC 10/16/22 20:30 Total Counted 100 10/16/22 20:30 Neutrophils % (Manual) 85 % (39-76) H 10/16/22 20:30 Band Neutrophils % 9 % (0-10) 10/16/22 20:30 Lymphocytes % (Manual) 3 % (13-43) L 10/16/22 20:30 Monocytes % (Manual) 3 % (4-9) L 10/16/22 20:30 Plt Morphology Comment Normal (NORMAL) 10/16/22 20:30 RBC Morphology Abnormal (NORMAL) A 10/16/22 20:30 Hypochromasia Slight A 10/16/22 20:30 Anisocytosis 2+ A 10/16/22 20:30 Ovalocytes Slight A 10/16/22 20:30 Stomatocytes Slight A 10/16/22 20:30 Sample Site Lb 10/16/22 20:13 ABG pH 7.270 (7.35-7.45) L 10/16/22 20:13 ABG pCO2 80.0 mmHg (35.0-45.0) H* 10/16/22 20:13 ABG pO2 124.0 mmHg (80.0-100.0) H 10/16/22 20:13 ABG HCO3 36.7 mmol/L (22-26) H* 10/16/22 20:13 ABG O2 Saturation 98.0 % (90-100) 10/16/22 20:13 ABG Base Excess 7.1 mmol/L (-2.0-2.0) H 10/16/22 20:13 Laci Test N/a 10/16/22 20:13 A-a Gradient 61.0 mmHg 10/16/22 20:13 FiO2 40.0 10/16/22 20:13 Blood Gas Comments Jr well ae 10/16/22 20:13 Sodium 139 mmol/L (136-145) 10/16/22 20:30 Corrected Sodium 141 mmol/L (136-145) 10/16/22 20:30 Potassium 5.5 mmol/L (3.5-5.1) H 10/16/22 20:30 Chloride 102 mmol/L (98-107) 10/16/22 20:30 Carbon Dioxide 35.4 mmol/L (21-32) H 10/16/22 20:30 BUN 20 mg/dL (7-18) H 10/16/22 20:30 Creatinine 1.57 mg/dL (0.55-1.02) H 10/16/22 20:30 Est GFR (MDRD) Af Amer 41 (>60) L 10/16/22 20:30 Est GFR (MDRD) Non-Af 34 (>60) L 10/16/22 20:30 Glucose 193 mg/dL (65-99) H 10/16/22 20:30 Calcium 8.8 mg/dL (8.5-10.1) 10/16/22 20:30 Corrected Calcium 9.5 mg/dL (8.5-10.1) 10/16/22 20:30 Total Bilirubin 0.30 mg/dL (0.2-1.0) 10/16/22 20:30 AST 30 Units/L (15-37) 10/16/22 20:30 ALT 21 Units/L (12-78) 10/16/22 20:30 Alkaline Phosphatase 87 Units/L (46-116) 10/16/22 20:30 Creatine Kinase 53 Units/L (26-192) 10/16/22 20:30 Troponin I High Sens 66.9 ng/L (4.0-60.0) H* 10/16/22 20:30 Total Protein 7.0 g/dL (6.4-8.2) 10/16/22 20:30 Albumin 3.1 g/dL (3.4-5.0) L 10/16/22 20:30 Globulin 3.9 g/dL (2.5-4.5) 10/16/22 20:30 Albumin/Globulin Ratio 0.8 Ratio (1.1-2.1) L 10/16/22 20:30 Specimen Type Catherized urine 10/16/22 20:51 Urine Color Yellow (YELLOW) 10/16/22 20:51 Urine Appearance Clear (CLEAR) 10/16/22 20:51 Urine pH 5.0 (5.0 - 8.0) 10/16/22 20:51 Ur Specific [place] 1.020 (1.000-1.030) 10/16/22 20:51 Urine Protein 3+ (NEGATIVE) 10/16/22 20:51 Urine Glucose (UA) 4+ (NEGATIVE) 10/16/22 20:51 Urine Ketones Negative (NEGATIVE) 10/16/22 20:51 Urine Blood 1+ (NEGATIVE) 10/16/22 20:51 Urine Nitrite Negative (NEGATIVE) 10/16/22 20:51 Urine Bilirubin Negative (NEGATIVE) 10/16/22 20:51 Urine Urobilinogen Normal (NORMAL) 10/16/22 20:51 Ur Leukocyte Esterase Negative (NEGATIVE) 10/16/22 20:51 Urine RBC 0-2 /HPF (0-3) 10/16/22 20:51 Urine WBC 0-2 /HPF (0-5) 10/16/22 20:51 Ur Squamous Epith Cells Rare /HPF (NEGATIVE) 10/16/22 20:51 Amorphous Sediment Trace /HPF (NEGATIVE) 10/16/22 20:51 Urine Bacteria Negative /HPF (NEGATIVE) 10/16/22 20:51 Hyaline Casts Moderate /LPF (NEGATIVE) 10/16/22 20:51 Urine Mucus Few /HPF (NEGATIVE) 10/16/22 20:51 Ur Culture Indicated? No/not indicated 10/16/22 20:51 XRAY XRAY Interpreted by: Radiologist (REPORTS NOTED.) and Self EKG Rate: 101 [place]: Normal Rhythm: ST Hypertrophy: LAE and LVH ST: Nonsp Opioid Opioid Risk Tool Age (Mateus box if 16-45): No History of Preadolescent Sexual Abuse: No Total: 0 Total Score Risk Category: Low Risk Copyright: Vasile SOLOMON predicting aberrant behaviors Discharge Plan Diagnosis Discharge Problem: Respiratory failure, Bronchitis, Hypercarbia, Status post carotid endarterectomy Discharge Plan Patient Disposition: 09 ADMITTED INPATIENT Condition: Stable Orders to Discharge Patient Discharge Orders: Discharge by Transfer to Outside Facility (Routine); Ordered 10/17/22 Ordered By: ROMERO FRY
--- NOTE | 2022-10-16 19:51 | EKG ---
Test Reason : TACHYCARDIA Blood Pressure : */* mmHG Vent. Rate : 115 BPM Atrial Rate : 115 BPM P-R Int : 180 ms QRS Dur : 78 ms QT Int : 316 ms P-R-T Axes : 69 -11 58 degrees QTc Int : 437 ms Sinus tachycardia Possible Left atrial enlargement Minimal voltage criteria for LVH, may be normal variant ( R in aVL ) Cannot rule out Anterior infarct , age undetermined Abnormal ECG When compared with ECG of 15-SEP-2022 14:25, premature ventricular complexes are no longer present Confirmed by Chris Mathis ([id number]) on 10/18/2022 8:13:32 AM Referred By: Confirmed By: Chris Mathis
--- NOTE | 2022-10-16 19:54 | CT ---
HISTORYAMSSTUDYBRAIN W/O CONCOMPARISONNoneTECHNIQUECT scan of the brain was obtained from skull base to vertex without contrast. Dose reduction techniques were utilized.Contrast: NoneFINDINGSThere is diffuse cerebral and cerebellar volume loss. There is moderate to extensive confluent hypodensity in the hemispheric white matter. While these are nonspecific findings, this most likely represents microvascular ischemic disease changes. There is no evidence of intracranial hemorrhage or mass-effect. No extra-axial fluid collections are identified.There are mild scattered atherosclerotic changes noted of the cavernous carotid arteries.Skull base and calvarium are intact. Paranasal sinuses reveals a retention cyst versus polyp within the posterior right maxillary sinus.IMPRESSIONNo evidence of acute intracranial pathology. Diffuse generalized cerebral atrophy. Microvascular ischemic disease changes.Electronically signed by: Ladonna Husain (Oct 16, 2022 19:53:05)
[2022-10-16 20:19] LABS: ABG BASE EXCESS 7.1 mmol/L (-2.0-2.0)
[2022-10-16 20:21] LABS: ABG HCO3 36.7 mmol/L (22-26)
[2022-10-16 20:50] LABS: BASOPHILS # (AUTO) 0.1 X10^3/uL (0.0-0.1); BASOPHILS % (AUTO) 0.5 % (0.2-1.0); HEMATOCRIT 35.3 % (36.0-47.0); HEMOGLOBIN 10.9 g/dL (12.0-16.0); LYMPHOCYTES # (AUTO) 0.5 X10^3/uL (1.3-2.9); LYMPHOCYTES % (AUTO) 3.6 % (21.0-51.0); MEAN CORPUSCULAR HEMOGLOBIN 26.8 pg (27.0-34.0); MEAN CORPUSCULAR HGB CONC 30.9 g/dL (33.0-35.0); MEAN CORPUSCULAR VOLUME 86.6 fL (80.0-100.0); MEAN PLATELET VOLUME 9.6 fL (7.4-11.0); MONOCYTES # (AUTO) 0.6 x10^3/uL (0.3-0.8); MONOCYTES % (AUTO) 4.6 % (0.0-13.0); NEUTROPHILS # (AUTO) 12.5 x10^3/uL (2.2-4.8); NEUTROPHILS % (AUTO) 91.3 % (42.0-75.0); RED BLOOD COUNT 4.07 X10^6/uL (3.5-5.4); RED CELL DISTRIBUTION WIDTH 22.4 % (11.6-16.5); WHITE BLOOD COUNT 13.7 X10^3/uL (3.6-10.0)
[2022-10-16 20:58] LABS: BILIRUBIN,URINE NEGATIVE (NEGATIVE); BLOOD/HEMOGLOBIN,URINE 1+ (NEGATIVE); GLUCOSE, URINE 4+ (NEGATIVE); KETONES,URINE NEGATIVE (NEGATIVE); LEUKOCYTE ESTERASE ,URINE NEGATIVE (NEGATIVE); NITRITES,URINE NEGATIVE (NEGATIVE); PROTEIN,URINE 3+ (NEGATIVE); UROBILINOGEN,URINE NORMAL (NORMAL)
[2022-10-16 21:00] LABS: APPEARANCE,URINE CLEAR (CLEAR); COLOR,URINE YELLOW (YELLOW)
[2022-10-16 21:11] LABS: BAND NEUTROPHILS % 9 % (0-10)
[2022-10-16 21:12] LABS: ANISOCYTOSIS 2+; HYPOCHROMASIA SLIGHT; OVALOCYTES SLIGHT; PLATELET MORPHOLOGY COMMENT NORMAL (NORMAL); STOMATOCYTES SLIGHT
[2022-10-16 21:13] LABS: BACTERIA,URINE NEGATIVE /HPF (NEGATIVE); HYALINE CASTS, URINE MODERATE /LPF (NEGATIVE); RBC,URINE 0-2 /HPF (0-3); SQUAMOUS EPITHELIAL CELL,UR RARE /HPF (NEGATIVE)
[2022-10-16 21:13] LABS: ALBUMIN 3.1 g/dL (3.4-5.0); CALCIUM 8.8 mg/dL (8.5-10.1); CARBON DIOXIDE 35.4 mmol/L (21-32); COR CA(FOR HYPOALB) 9.5 mg/dL (8.5-10.1); CREATININE 1.57 mg/dL (0.55-1.02)
[2022-10-16] MEDS ORDERED: PROVENTIL NEB TX 0.083% 2.5MG/ 3ML NEB PRN (22:18)
[2022-10-16] MEDS ORDERED: ROCEPHIN VIAL 1 GRAM 1 G in NS 100 ML IV 100 ML IV SCH (22:31)
[2022-10-16 22:38] LABS: ABG BASE EXCESS 7.8 mmol/L (-2.0-2.0)
--- NOTE | 2022-10-16 22:58 | EKG ---
Test Reason : HTN Blood Pressure : */* mmHG Vent. Rate : 101 BPM Atrial Rate : 101 BPM P-R Int : 162 ms QRS Dur : 76 ms QT Int : 352 ms P-R-T Axes : 74 -7 54 degrees QTc Int : 456 ms Sinus tachycardia Possible Left atrial enlargement Minimal voltage criteria for LVH, may be normal variant ( [place] product ) Borderline ECG When compared with ECG of 16-OCT-2022 19:50, (Unconfirmed) No significant change was found Confirmed by Chris Mathis ([id number]) on 10/18/2022 8:13:17 AM Referred By: Confirmed By: Chris Mathis
[2022-10-16] MEDS ORDERED: NS 1,000 ML IV 1,000 ML IV SCH (23:00)
[2022-10-16 23:21] VITALS: BMI 26.0
[2022-10-17] MEDS ORDERED: HEPARIN SODIUM IN D5W 25,000 UNITS/500 ML BAG IV PRN (01:30)
[2022-10-17] MEDS ORDERED: HEPARIN SODIUM IN D5W 25,000 UNITS/500 ML BAG ONE (01:48)
--- NOTE | 2022-10-17 01:48 | EKG ---
Test Reason : Hypoxia Blood Pressure : */* mmHG Vent. Rate : 103 BPM Atrial Rate : 103 BPM P-R Int : 162 ms QRS Dur : 90 ms QT Int : 344 ms P-R-T Axes : 64 0 65 degrees QTc Int : 450 ms Sinus tachycardia Minimal voltage criteria for LVH, may be normal variant ( [place] product ) Cannot rule out Anterior infarct , age undetermined Abnormal ECG Confirmed by Chris Mathis ([id number]) on 10/18/2022 8:12:54 AM Referred By: Confirmed By: Chris Mathis
[2022-10-17 02:25] LABS: INR 1.07 (0.8-1.3)
[2022-10-17] MEDS ORDERED: HEPARIN SODIUM INJ 5000 UNITS IVP ONE (02:33)
[2022-10-17 04:06] VITALS: BP 137/62
--- NOTE | 2022-10-25 15:10 | DR.SOBA ---
HPI Time Seen Time Seen by Provider: 10/16/22 19:18 Primary Care Physician Primary Care Physician: Dr. Torrez Complaints Chief Complaint:: SOB and weakness, hypoxia. EMS state they found patient with O2 line kinked and sat at 30%, however patient was not cyanotic, and after Non rebreather at 10 lpm patient sats increased to 97%, patient lethargic but did respond to verbal stimuli COVID-19 Coronavirus risk:travel/contact w/high risk person: No Has patient experienced Coronavirus symptoms: No Source History Provided: EMS Mode of Arrival Mode of Arrival: EMS Timing Onset of Chief Complaint: 10/16/22 PMH PMH Past Medical History: Yes Past Medical History: Anemia, Anxiety, Arthritis, CHF, COPD, Coronary Artery Disease, Diabetes, Dyslipidemia, GERD, Hypertension, OR and Renal Disease Past Surgical History: Yes Surgical History: Carotid Endarterectomy, Hysterectomy and Ortho Surgery Past Surgical History Comment: Recent Carotid endartectomy Family History History of Family Medical Conditions: Yes Family Medical History: Diabetes Mellitus, OR and Hypertension Social History Does patient currently use any type of tobacco product: No Have you used tobacco products in the last 12 months: No Type of Tobacco Use: None Does any household member use tobacco: No Alcohol Use: None Do you use any recreational Drugs:: No Lives With: Family Lives Where: Home Travel Risk Coronavirus risk:travel/contact w/high risk person: No Has patient experienced Coronavirus symptoms: No Infectious screening In the last 2 months have you had wt loss of >10#?: NO Have you had fever, night sweats or hemotysis?: No Have you traveled outside the country in the last 6 months?: No Isolation: Standard PE Vital Signs Vitals: Temperature 98.4 F Pulse Rate 97 Respiratory Rate 25 Blood Pressure [Left Arm] 148/68 Blood Pressure 107/53 O2 Sat by Pulse Oximetry 94 ROR Labs Reviewed Result Diagrams: 10/16/22 20:30 10/16/22 20:30 Laboratory: WBC 13.7 X10^3/uL (3.6-10.0) H 10/16/22 20:30 RBC 4.07 X10^6/uL (3.5-5.4) 10/16/22 20:30 Hgb 10.9 g/dL (12.0-16.0) L 10/16/22 20:30 Hct 35.3 % (36.0-47.0) L 10/16/22 20: MCV 86.6 fL (80.0-100.0) 10/16/22 20: MCH 26.8 pg (27.0-34.0) L 10/16/22 20: MCHC 30.9 g/dL (33.0-35.0) L 10/16/22 20: RDW 22.4 % (11.6-16.5) H 10/16/22 20: Plt Count 193 X10^3/uL (150.0-450.0) 10/16/22 20: Plt Count Comment Adequate (ADEQUATE) 10/16/22: MPV 9.6 fL (7.4-11.0) 10/16/22 20: Neut % (Auto) 91.3 % (42.0-75.0) H 10/16/22 20: Lymph % (Auto) 3.6 % (21.0-51.0) L 10/16/22 20: [place] % (Auto) 4.6 % (0.0-13.0) 10/16/22 20: Eos % (Auto) 0.0 % (0.9-2.9) L 10/16/22 20: Baso % (Auto) 0.5 % (0.2-1.0) 10/16/22 20: Neut # (Auto) 12.5 x10^3/uL (2.2-4.8) H 10/16/22 20: Lymph # (Auto) 0.5 X10^3/uL (1.3-2.9) L 10/16/22 20:30 [place] # (Auto) 0.6 x10^3/uL (0.3-0.8) 10/16/22 20: Eos # (Auto) 0.0 x10^3/uL (0.0-0.2) 10/16/22 20: Baso # (Auto) 0.1 X10^3/uL (0.0-0.1) 10/16/22 20: Absolute Nucleated RBC 0.0 /100WBC 10/16/22 20: Total Counted 100 10/16/22 20:30 Neutrophils % (Manual) 85 % (39-76) H 10/16/22 20:30 Band Neutrophils % 9 % (0-10) 10/16/22 20:30 Lymphocytes % (Manual) 3 % (13-43) L 10/16/22 20:30 Monocytes % (Manual) 3 % (4-9) L 10/16/22 20:30 Plt Morphology Comment Normal (NORMAL) 10/16/22 20:30 RBC Morphology Abnormal (NORMAL) A 10/16/22 20:30 Hypochromasia Slight A 10/16/22 20:30 Anisocytosis 2+ A 10/16/22 20:30 Ovalocytes Slight A 10/16/22 20:30 Stomatocytes Slight A 10/16/22 20:30 Sample Site Lb 10/16/22 20:13 ABG pH 7.270 (7.35-7.45) L 10/16/22 20:13 ABG pCO2 80.0 mmHg (35.0-45.0) H* 10/16/22 20:13 ABG pO2 124.0 mmHg (80.0-100.0) H 10/16/22 20:13 ABG HCO3 36.7 mmol/L (22-26) H* 10/16/22 20:13 ABG O2 Saturation 98.0 % (90-100) 10/16/22 20:13 ABG Base Excess 7.1 mmol/L (-2.0-2.0) H 10/16/22 20:13 Laci Test N/a 10/16/22 20:13 A-a Gradient 61.0 mmHg 10/16/22 20:13 FiO2 40.0 10/16/22 20:13 Blood Gas Comments Jr well ae 10/16/22 20:13 Sodium 139 mmol/L (136-145) 10/16/22 20:30 Corrected Sodium 141 mmol/L (136-145) 10/16/22 20:30 Potassium 5.5 mmol/L (3.5-5.1) H 10/16/22 20:30 Chloride 102 mmol/L (98-107) 10/16/22 20:30 Carbon Dioxide 35.4 mmol/L (21-32) H 10/16/22 20:30 BUN 20 mg/dL (7-18) H 10/16/22 20:30 Creatinine 1.57 mg/dL (0.55-1.02) H 10/16/22 20:30 Est GFR (MDRD) Af Amer 41 (>60) L 10/16/22 20:30 Est GFR (MDRD) Non-Af 34 (>60) L 10/16/22 20:30 Glucose 193 mg/dL (65-99) H 10/16/22 20:30 Calcium 8.8 mg/dL (8.5-10.1) 10/16/22 20: Corrected Calcium 9.5 mg/dL (8.5-10.1) 10/16/22 20:30 Total Bilirubin 0.30 mg/dL (0.2-1.0) 10/16/22 20:30 AST 30 Units/L (15-37) 10/16/22 20:30 ALT 21 Units/L (12-78) 10/16/22 20:30 Alkaline Phosphatase 87 Units/L (46-116) 10/16/22 20: Creatine Kinase 53 Units/L (26-192) 10/16/22 20:30 Troponin I High Sens 66.9 ng/L (4.0-60.0) H* 10/16/22 20:30 Total Protein 7.0 g/dL (6.4-8.2) 10/16/22 20:30 Albumin 3.1 g/dL (3.4-5.0) L 10/16/22 20: Globulin 3.9 g/dL (2.5-4.5) 10/16/22 20:30 Albumin/Globulin Ratio 0.8 Ratio (1.1-2.1) L 10/16/22 20:30 Specimen Type Catherized urine 10/16/22 20:51 Urine Color Yellow (YELLOW) 10/16/22 20: Urine Appearance Clear (CLEAR) 10/16/22 20: Urine pH 5.0 (5.0 - 8.0) 10/16/22 20: Ur Specific [place] 1.020 (1.000-1.030) 10/16/22 20: Urine Protein 3+ (NEGATIVE) 10/16/22 20: Urine Glucose (UA) 4+ (NEGATIVE) 10/16/22 20: Urine Ketones Negative (NEGATIVE) 10/16/22 20:51 Urine Blood 1+ (NEGATIVE) 10/16/22 20:51 Urine Nitrite Negative (NEGATIVE) 10/16/22 20:51 Urine Bilirubin Negative (NEGATIVE) 10/16/22 20:51 Urine Urobilinogen Normal (NORMAL) 10/16/22 20:51 Ur Leukocyte Esterase Negative (NEGATIVE) 10/16/22 20:51 Urine RBC 0-2 /HPF (0-3) 10/16/22 20:51 Urine WBC 0-2 /HPF (0-5) 10/16/22 20:51 Ur Squamous Epith Cells Rare /HPF (NEGATIVE) 10/16/22 20:51 Amorphous Sediment Trace /HPF (NEGATIVE) 10/16/22 20:51 Urine Bacteria Negative /HPF (NEGATIVE) 10/16/22 20:51 Hyaline Casts Moderate /LPF (NEGATIVE) 10/16/22 20:51 Urine Mucus Few /HPF (NEGATIVE) 10/16/22 20:51 Ur Culture Indicated? No/not indicated 10/16/22 20:51 Opioid Opioid Risk Tool Age (Mateus box if 16-45): No History of Preadolescent Sexual Abuse: No Total: 0 Total Score Risk Category: Low Risk Copyright: Vasile SOLOMON predicting aberrant behaviors Discharge Plan Diagnosis Discharge Problem: Respiratory failure, Bronchitis, Hypercarbia, Status post carotid endarterectomy Discharge Plan Patient Disposition: 09 ADMITTED INPATIENT Condition: Stable Orders to Discharge Patient Discharge Orders: Discharge by Transfer to Outside Facility (Routine); Ordered 10/17/22 Ordered By: ROMERO FRY
== END 2022-10-17 04:20 | disposition short-term general hospital (02) | DRG 189 ==
LOC: ER 18:10 → ICU 21:56
PROVIDERS: ADMIT Internal Medicine; ATTEND Internal Medicine
DX: I10 Essential (primary) hypertension; Z98.62 Peripheral vascular angioplasty status; R53.1 Weakness; R77.8 Other specified abnormalities of plasma proteins; J96.02 Acute respiratory failure with hypercapnia; E78.2 Mixed hyperlipidemia; K21.9 Gastro-esophageal reflux disease without esophagitis; R00.0 Tachycardia, unspecified; R41.82 Altered mental status, unspecified

== ENCOUNTER 2022-12-01 10:47 | Inpatient (IN) ==
--- NOTE | 2022-12-01 11:04 | DR.AMS ---
HPI Time Seen Time Seen by Provider: 12/01/22 11:03 Complaint Cheif Complaint Doctors Comments: C/O fall at home; pain lumbar spine, left elbow COVID-19 Coronavirus risk:travel/contact w/high risk person: No Has patient experienced Coronavirus symptoms: No Reviewed Nurses Notes Reviewed: Yes Source History Provided: Patient Mode of Arrival Mode of Arrival: EMS Timing Came On: Suddenly Symptoms: Improving Symptom Onset: Unknown Duration Duration: Unknown Severity Severity: Moderate Context Recent: Trauma History Of: Diabetes Associated Signs and Symptoms Associated Signs and Symptoms: None PMH PMH Past Medical History: Anemia, Anxiety, Arthritis, CHF, COPD, Coronary Artery Disease, Diabetes, Dyslipidemia, GERD, Hypertension, [place] and Renal Disease Past Surgical History: Yes Surgical History: Carotid Endarterectomy, Hysterectomy and Ortho Surgery Family History Family Medical History: Diabetes Mellitus, [place] and Hypertension Social History Do you use any recreational Drugs:: No ROS Review of Systems Constitutional: No Symptoms Reported Eyes: No Symptoms Reported ENTM: No Symptoms Reported Respiratoy: No Symptoms Reported Cardiovascular: No Symptoms Reported Gastrointestinal/Abdominal: No Symptoms Reported Genitourinary: No Symptoms Reported Neurological: No Symptoms Reported Musculoskeletal: See HPI, Back Pain and Joint Pain Integumentary: No Symptoms Reported Hematologic/Lymphatic: No Symptoms Reported Endocrine: No Symptoms Reported Psychiatric: No Symptoms Reported All Other Systems: Reviewed and Negative PE Vitals Vital Signs: Temp Pulse Resp BP BP BP Pulse Ox 01/12/21 08:00 138/63 12/01/22 14:15 62 20 89 L 12/01/22 14:01 63 20 95 12/01/22 14:01 92/50 12/01/22 14:00 63 19 98 12/01/22 13:45 64 21 100 12/01/22 13:31 68 21 96 12/01/22 13:31 124/59 12/01/22 13:30 69 21 98 12/01/22 13:15 69 21 88 L 12/01/22 13:01 72 21 99 12/01/22 13:01 125/56 12/01/22 13:00 73 21 98 12/01/22 12:45 73 25 H 100 12/01/22 12:30 79 25 H 100 12/01/22 12:30 175/70 12/01/22 13:47 12/01/22 12:25 12/01/22 12:15 90 77 L 12/01/22 12:04 87 88 L 12/01/22 12:04 158/67 12/01/22 12:00 86 94 L 12/01/22 11:50 93 H 15 L 12/01/22 11:41 80 L 12/01/22 11:02 96 H 98 12/01/22 11:00 98.5 F 95 H 16 140/77 90 L 10/28/22 07:30 139/65 10/17/22 02:55 10/16/22 23:00 154/59 O2 Del Method FiO2 01/12/21 08:00 12/01/22 14:15 12/01/22 14:01 12/01/22 14:01 12/01/22 14:00 12/01/22 13:45 12/01/22 13:31 12/01/22 13:31 12/01/22 13:30 12/01/22 13:15 12/01/22 13:01 12/01/22 13:01 12/01/22 13:00 12/01/22 12:45 12/01/22 12:30 12/01/22 12:30 12/01/22 13:47 45 12/01/22 12:25 60 12/01/22 12:15 12/01/22 12:04 12/01/22 12:04 12/01/22 12:00 12/01/22 11:50 12/01/22 11:41 12/01/22 11:02 12/01/22 11:00 Nasal Cannula 10/28/22 07:30 10/17/22 02:55 32 10/16/22 23:00 General Limitations: No Limitations General Appearance: Alert and In No Apparent Distress Head Head Exam: Normal Inspection and Atraumatic Eyes Eye exam: Normal Appearance, PERRL and EOMI ENT ENT Exam: Normal Exam Neck Neck Exam: Normal Inspection, Full ROM and Trachea Midline Chest Chest Inspection: Normal Inspection and Symmetric Chest Wall Rise Respiratory Respiratory Exam: Normal Lung Sounds Bilat Cardiovascular Cardiovascular Exam: Regular Rate Abdominal Exam Abdominal Exam: Normal Inspection Extremities Extremities Exam: Normal Inspection Back Back Exam: Normal Inspection Neurological Neurological Exam: Alert, Oriented X3 and CN II-XII Intact Patient Oriented To: Person, Place and Time Speech: Fluid Speech Psychological Psychiatric Exam: Normal Affect Skin Skin Exam: Other (Abrasion left elbow) MDM Additional Information Obtained Additional Information Obtained From: Old Records COURSE Reevaluation 1st: Improved Consultation Consultation Comments: Spoke w Dr. Singh; will admit Education/Counseling Education/Counseling: Patient Educated On: Treatment and Diagnosis ROR Labs Reviewed Laboratory Results Reviewed?: Yes Result Diagrams: 12/01/22 11:49 12/01/22 11:49 Laboratory: WBC 18.2 X10^3/uL (3.6-10.0) H 12/01/22 11:49 RBC 4.51 X10^6/uL (3.5-5.4) 12/01/22 11:49 Hgb 12.7 g/dL (12.0-16.0) 12/01/22 11:49 Hct 41.6 % (36.0-47.0) 12/01/22 11:49 MCV 92.3 fL (80.0-100.0) 12/01/22 11:49 MCH 28.1 pg (27.0-34.0) 12/01/22 11:49 MCHC 30.5 g/dL (33.0-35.0) L 12/01/22 11:49 RDW 21.2 % (11.6-16.5) H 12/01/22 11:49 Plt Count 321 X10^3/uL (150.0-450.0) 12/01/22 11:49 Plt Count Comment Adequate (ADEQUATE) 12/01/22 11:49 MPV 9.3 fL (7.4-11.0) 12/01/22 11:49 Neut % (Auto) 93.3 % (42.0-75.0) H 12/01/22 11:49 Lymph % (Auto) 2.3 % (21.0-51.0) L 12/01/22 11:49 [place] % (Auto) 4.3 % (0.0-13.0) 12/01/22 11:49 Eos % (Auto) 0.1 % (0.9-2.9) L 12/01/22 11:49 Baso % (Auto) 0 % (0.2-1.0) L 12/01/22 11:49 Neut # (Auto) 17.0 x10^3/uL (2.2-4.8) H 12/01/22 11:49 Lymph # (Auto) 0.4 X10^3/uL (1.3-2.9) L 12/01/22 11:49 [place] # (Auto) 0.8 x10^3/uL (0.3-0.8) 12/01/22 11:49 Eos # (Auto) 0.0 x10^3/uL (0.0-0.2) 12/01/22 11:49 Baso # (Auto) 0.0 X10^3/uL (0.0-0.1) 12/01/22 11:49 Absolute Nucleated RBC 0.0 /100WBC 12/01/22 11:49 Total Counted 100 12/01/22 11:49 Neutrophils % (Manual) 89 % (39-76) H 12/01/22 11:49 Lymphocytes % (Manual) 4 % (13-43) L 12/01/22 11:49 Monocytes % (Manual) 5 % (4-9) 12/01/22 11:49 Eosinophils % (Manual) 2 % (0-6) 12/01/22 11:49 Plt Morphology Comment Normal (NORMAL) 12/01/22 11:49 RBC Morphology Abnormal (NORMAL) A 12/01/22 11:49 Anisocytosis 1+ A 12/01/22 11:49 Sample Site Lbra 12/01/22 13:35 ABG pH 7.310 (7.35-7.45) L 12/01/22 13:35 ABG pCO2 82.0 mmHg (35.0-45.0) H* 12/01/22 13:35 ABG pO2 172.0 mmHg (80.0-100.0) H 12/01/22 13:35 ABG HCO3 41.3 mmol/L (22-26) H* 12/01/22 13:35 ABG O2 Saturation 99.0 % (90-100) 12/01/22 13:35 ABG Base Excess 11.7 mmol/L (-2.0-2.0) H 12/01/22 13:35 Laci Test N/a 12/01/22 13:35 A-a Gradient 153.0 mmHg 12/01/22 13:35 FiO2 60.0 12/01/22 13:35 Blood Gas Comments Pt maria l well elj 12/01/22 13:35 Sodium 140 mmol/L (136-145) 12/01/22 11:49 Corrected Sodium 145 mmol/L (136-145) 12/01/22 11:49 Potassium 4.9 mmol/L (3.5-5.1) 12/01/22 11:49 Chloride 100 mmol/L (98-107) 12/01/22 11:49 Carbon Dioxide 35.8 mmol/L (21-32) H 12/01/22 11:49 BUN 29 mg/dL (7-18) H 12/01/22 11:49 Creatinine 1.49 mg/dL (0.55-1.02) H 12/01/22 11:49 Est GFR (MDRD) Af Amer 43 (>60) L 12/01/22 11:49 Est GFR (MDRD) Non-Af 36 (>60) L 12/01/22 11:49 Glucose 304 mg/dL (65-99) H 12/01/22 11:49 Calcium 9.5 mg/dL (8.5-10.1) 12/01/22 11:49 Corrected Calcium 10.1 mg/dL (8.5-10.1) 12/01/22 11:49 Total Bilirubin 0.30 mg/dL (0.2-1.0) 12/01/22 11:49 AST 29 Units/L (15-37) 12/01/22 11:49 ALT 41 Units/L (12-78) 12/01/22 11:49 Alkaline Phosphatase 93 Units/L (46-116) 12/01/22 11:49 Total Protein 7.2 g/dL (6.4-8.2) 12/01/22 11:49 Albumin 3.2 g/dL (3.4-5.0) L 12/01/22 11:49 Globulin 4.0 g/dL (2.5-4.5) 12/01/22 11:49 Albumin/Globulin Ratio 0.8 Ratio (1.1-2.1) L 12/01/22 11:49 Specimen Type Catherized urine 12/01/22 12:16 Urine Color Yellow (YELLOW) 12/01/22 12:16 Urine Appearance Hazy (CLEAR) 12/01/22 12:16 Urine pH 6.0 (5.0 - 8.0) 12/01/22 12:16 Ur Specific [place] 1.010 (1.000-1.030) 12/01/22 12:16 Urine Protein 2+ (NEGATIVE) 12/01/22 12:16 Urine Glucose (UA) 4+ (NEGATIVE) 12/01/22 12:16 Urine Ketones Negative (NEGATIVE) 12/01/22 12:16 Urine Blood 1+ (NEGATIVE) 12/01/22 12:16 Urine Nitrite Negative (NEGATIVE) 12/01/22 12:16 Urine Bilirubin Negative (NEGATIVE) 12/01/22 12:16 Urine Urobilinogen Normal (NORMAL) 12/01/22 12:16 Ur Leukocyte Esterase 3+ (NEGATIVE) 12/01/22 12:16 Urine RBC 0-2 /HPF (0-3) 12/01/22 12:16 Urine WBC 5-10 /HPF (0-5) A 12/01/22 12:16 Ur Squamous Epith Cells Rare /HPF (NEGATIVE) 12/01/22 12:16 Amorphous Sediment Trace /HPF (NEGATIVE) 12/01/22 12:16 Urine Bacteria 1+ /HPF (NEGATIVE) 12/01/22 12:16 Ur Culture Indicated? Yes/culture set up 12/01/22 12:16 Urine Opiates Screen Negative (NEG=<300) 12/01/22 12:16 Urine Methadone Screen Negative (NEG=<300) 12/01/22 12:16 Ur Barbiturates Screen Negative (NEG=<200) 12/01/22 12:16 Ur Phencyclidine Scrn Negative (NEG=<25) 12/01/22 12:16 Ur Amphetamines Screen Negative (NEG=<1000) 12/01/22 12:16 U Benzodiazepines Scrn Negative (NEG=<200) 12/01/22 12:16 Urine Cocaine Screen Negative (NEG=<300) 12/01/22 12:16 U Marijuana (THC) Screen Negative (NEG=<50) 12/01/22 12:16 Opioid Opioid Risk Tool Age (Mateus box if 16-45): No History of Preadolescent Sexual Abuse: No Total: 0 Total Score Risk Category: Low Risk Copyright: Vasile SOLOMON predicting aberrant behaviors Discharge Plan Diagnosis Discharge Problem: Acute UTI, Hypoxia Discharge Plan Patient Disposition: 09 ADMITTED INPATIENT Condition: Stable Prescriptions: No Action furosemide 40 mg tablet 1 tab PO QAM omeprazole 40 mg capsule,delayed release(DR/EC) 40 mg PO QDAY glimepiride 2 mg tablet 1 tab PO QDAY potassium chloride 20 mEq/15 mL liquid 15 ml PO QDAY clonazepam 2 mg tablet 1 tab PO QPM PRN albuterol sulfate 90 mcg/actuation HFA aerosol inhaler 2 puff INHALATION Q6H PRN pramipexole 1.5 mg tablet 1.5 mg PO BID Farxiga 10 mg tablet 10 mg PO QDAY tramadol 50 mg tablet 50 mg PO BID MDD 2 PRN (Reason: pain) Qty: 10 0RF methylprednisolone [Medrol (Vahid)] 4 mg tablets,dose pack See Rx Instructions .ROUTE .COMPLEX Qty: 21 0RF Rx Instructions: orally per package directions atorvastatin 20 mg tablet 20 mg PO QDAY ketotifen fumarate 0.025 % (0.035 %) Drops 1 drp OPHTHALMIC (EYE) Q8H Rx Instructions: 1 DROP INTO BOTH EYES Q8H metformin 850 mg Tablet 850 mg PO BID atenolol 25 mg Tablet 25 mg PO DAILY nitroglycerin [Nitro-Patch] 0.4 mg/hr Patch 24 Hour 1 patch transdermal DAILY Rx Instructions: ON AT NOON AND OFF AT 8PM lidocaine 5 % adhesive patch,medicated 1 patch transdermal QDAY clonazepam 2 mg tablet 1 - 2 mg PO QPM PRN (Reason: Insomnia) aspirin 81 mg Tablet 81 mg PO DAILY roflumilast 500 mcg Tablet 500 mcg PO DAILY Trelegy Ellipta 100-62.5-25 mcg Blister With Device 1 inh INHALATION DAILY Health Concerns: Post Hospitalization: new medications and changes needed to prevent readmission or further decline. Pt educated and given instructions on all concerns. Plan of Treatment: Continue with present treatment and follow up plan. Pt is to keep follow up appointment as instructed and take medications as ordered. Orders to Discharge Patient Discharge Orders: Transfer (Routine); Ordered 12/01/22 Ordered By: Tejinder Wong Follow ups/Referrals Follow ups/Referrals: LEILA TOSCANO [Primary Care Provider] - 3 days
[2022-12-01] MEDS ORDERED: NARCAN INJ ONE (11:54)
[2022-12-01 11:58] LABS: EOSINOPHILS % (AUTO) 0.1 % (0.9-2.9); HEMOGLOBIN 12.7 g/dL (12.0-16.0); MONOCYTES # (AUTO) 0.8 x10^3/uL (0.3-0.8); NEUTROPHILS % (AUTO) 93.3 % (42.0-75.0); WHITE BLOOD COUNT 18.2 X10^3/uL (3.6-10.0)
[2022-12-01 12:04] LABS: ABG BASE EXCESS 8.8 mmol/L (-2.0-2.0)
[2022-12-01 12:05] LABS: ABG HCO3 39.8 mmol/L (22-26)
[2022-12-01 12:10] LABS: ALBUMIN 3.2 g/dL (3.4-5.0); CALCIUM 9.5 mg/dL (8.5-10.1); CARBON DIOXIDE 35.8 mmol/L (21-32); COR CA(FOR HYPOALB) 10.1 mg/dL (8.5-10.1); CREATININE 1.49 mg/dL (0.55-1.02); TOTAL PROTEIN 7.2 g/dL (6.4-8.2)
[2022-12-01 12:20] LABS: BASOPHILS % (AUTO) 0 % (0.2-1.0); HEMATOCRIT 41.6 % (36.0-47.0); LYMPHOCYTES # (AUTO) 0.4 X10^3/uL (1.3-2.9); LYMPHOCYTES % (AUTO) 2.3 % (21.0-51.0); MEAN CORPUSCULAR HEMOGLOBIN 28.1 pg (27.0-34.0); MEAN CORPUSCULAR HGB CONC 30.5 g/dL (33.0-35.0); MEAN CORPUSCULAR VOLUME 92.3 fL (80.0-100.0); MEAN PLATELET VOLUME 9.3 fL (7.4-11.0); MONOCYTES % (AUTO) 4.3 % (0.0-13.0); RED BLOOD COUNT 4.51 X10^6/uL (3.5-5.4); RED CELL DISTRIBUTION WIDTH 21.2 % (11.6-16.5)
[2022-12-01 12:24] LABS: BILIRUBIN,URINE NEGATIVE (NEGATIVE); BLOOD/HEMOGLOBIN,URINE 1+ (NEGATIVE); GLUCOSE, URINE 4+ (NEGATIVE); KETONES,URINE NEGATIVE (NEGATIVE); LEUKOCYTE ESTERASE ,URINE 3+ (NEGATIVE); NITRITES,URINE NEGATIVE (NEGATIVE); PROTEIN,URINE 2+ (NEGATIVE); UROBILINOGEN,URINE NORMAL (NORMAL)
--- NOTE | 2022-12-01 12:33 | CT ---
[email or web address].brPT STATES THAT SHE HAS HAD INCREASED DIZZINESS OVER THE PAST WEEK AND HAS HAD SEVERAL FALL WITH THE MOST RECENT FALL AROUND 4AM TODAY.STUDYLUMBAR SPINE W/O [id number]/2023TECHNIQUEMultiple axial images of the lumbar spine were obtained from the thoracolumbar junction to the sacrum without the administration of IV contrast. Sagittal and coronal reformats were performed and reviewed. Dose reduction techniques including Automated Exposure Control (AEC) and adjustment of mA and kV were utilized.FINDINGSGrade 1 anterolisthesis of L4 on L5 with posterior fusion hardware at L4-S1. Lumbar dextrocurvature. Otherwise, normal lumbar spinal alignment. Severe multilevel lumbar spine degenerative changes. Vertebroplasty changes at L1 and L3. No acute lumbar spine fracture.Diverticulosis without evidence of diverticulitis. Scattered vascular calcifications.IMPRESSIONLumbar spine degenerative changes without acute fracture.Electronically signed by: BENSON VILLANUEVA (Dec 01, 2022 12:32:36)
[2022-12-01 12:34] LABS: APPEARANCE,URINE HAZY (CLEAR); BACTERIA,URINE 1+ /HPF (NEGATIVE); COLOR,URINE YELLOW (YELLOW); RBC,URINE 0-2 /HPF (0-3); SQUAMOUS EPITHELIAL CELL,UR RARE /HPF (NEGATIVE)
[2022-12-01 12:45] LABS: ANISOCYTOSIS 1+; PLATELET MORPHOLOGY COMMENT NORMAL (NORMAL)
--- NOTE | 2022-12-01 13:38 | RAD ---
HISTORYTRAUMA.brPT STATES THAT SHE HAS HAD INCREASED DIZZINESS OVER THE PAST WEEK AND HAS HAD SEVERAL FALL WITH THE MOST RECENT FALL AROUND 4AM TODAY. .brJAYJAY IS ALSO NOTED TO HAVE ABRASION TO THE LEFT FOREARM. CAD, PR, DM, RENAL DISEASE, COPD, GERD, CHF SX: CAROTID ENDART, HYST, ORTHOSTUDYELBOW, LEFT three viewCOMPARISONNoneFINDINGSNo acute cortical disruption or dislocation is identified. No significant joint space effusion can be seen. The radial head is unremarkable in its appearance.IMPRESSIONNo acute fracture or dislocation.Electronically signed by: BENSON VILLANUEVA (Dec 01, 2022 13:36:25)
[2022-12-01 13:43] LABS: ABG BASE EXCESS 11.7 mmol/L (-2.0-2.0)
[2022-12-01 13:44] LABS: ABG HCO3 41.3 mmol/L (22-26)
[2022-12-01] MEDS ORDERED: ROCEPHIN VIAL 1 GRAM 1 G in NS 100 ML IV 100 ML IV SCH (13:54)
[2022-12-01] MEDS ORDERED: NS 100 ML IV 100 ML ONE (14:03)
[2022-12-01] MEDS ORDERED: ROCEPHIN VIAL 1 GRAM ONE (14:03)
[2022-12-01] MEDS ORDERED: NS 1,000 ML IV 1,000 ML IV ONE (15:00)
--- NOTE | 2022-12-01 15:01 | RAD ---
HISTORYSOBSTUDYAP chestCOMPARISONFebruary 2022FINDINGSHeart size stable with clear lungs and pleural spaces. There is no evidence for pneumonia or CHF. Surgical changes right shoulder with G-tube noted in proximal stomach.IMPRESSIONNo acute findings.Electronically signed by: DEANN MORALES (Dec 01, 2022 14:59:27)
[2022-12-01] MEDS ORDERED: NS 1,000 ML IV 1,000 ML ONE (15:08)
[2022-12-01] MEDS ORDERED: KLONOPIN TAB 1 MG PO PRN ×2 (15:24)
[2022-12-01] MEDS: ROCEPHIN VIAL 1 GRAM 1 G in NS 100 ML IV 100 ML IV SCH (15:27)
[2022-12-01] MEDS: NS 1,000 ML IV 1,000 ML IV SCH (16:05)
[2022-12-01] MEDS: PriLOSEC PO SCH (17:04)
[2022-12-01] MEDS: KLONOPIN TAB 1 MG PO PRN (17:06)
[2022-12-01] MEDS ORDERED: XOPENEX 1.25 MG/3 ML NEBULE NEB ONE (19:14)
[2022-12-01] MEDS ORDERED: PULMICORT NEB TX 0.5 MG NEB ONE (19:14)
[2022-12-01] MEDS: PULMICORT NEB TX 0.5 MG NEB SCH (20:05)
[2022-12-01] MEDS: XOPENEX 1.25 MG/3 ML NEBULE NEB SCH (20:05)
[2022-12-01] MEDS: ZOFRAN INJ 4 MG VIAL IVP PRN (20:31)
[2022-12-01] MEDS: SNACK - Diabetic Appropriate PO SCH (20:37)
[2022-12-01] MEDS: NovoLIN R (or HumuLIN R) SUBCUT PRN (20:40)
[2022-12-02] MEDS: NS 1,000 ML IV 1,000 ML IV SCH ×5 (00:46→23:50)
[2022-12-02] MEDS: KLONOPIN TAB 1 MG PO PRN (02:06)
[2022-12-02] MEDS: ULTRAM PO PRN ×2 (02:12→20:25)
[2022-12-02] MEDS: XOPENEX 1.25 MG/3 ML NEBULE NEB SCH ×3 (05:35→21:00)
[2022-12-02 05:40] LABS: BLOOD UREA NITROGEN 26 mg/dL (7-18); CALCIUM 8.2 mg/dL (8.5-10.1); CHLORIDE 104 mmol/L (98-107); CREATININE 1.06 mg/dL (0.55-1.02); SODIUM 144 mmol/L (136-145); eGFR NON BLACK RACES 53 (>60)
[2022-12-02 05:53] LABS: BASOPHILS % (AUTO) 0.6 % (0.2-1.0); EOSINOPHILS # (AUTO) 0.1 x10^3/uL (0.0-0.2); EOSINOPHILS % (AUTO) 1.2 % (0.9-2.9); HEMATOCRIT 30.4 % (36.0-47.0); HEMOGLOBIN 9.7 g/dL (12.0-16.0); LYMPHOCYTES # (AUTO) 1.3 X10^3/uL (1.3-2.9); LYMPHOCYTES % (AUTO) 19.8 % (21.0-51.0); MEAN CORPUSCULAR HEMOGLOBIN 28.5 pg (27.0-34.0); MEAN CORPUSCULAR HGB CONC 31.8 g/dL (33.0-35.0); MEAN CORPUSCULAR VOLUME 89.5 fL (80.0-100.0); MEAN PLATELET VOLUME 9.5 fL (7.4-11.0); MONOCYTES # (AUTO) 0.5 x10^3/uL (0.3-0.8); MONOCYTES % (AUTO) 7.7 % (0.0-13.0); NEUTROPHILS # (AUTO) 4.8 x10^3/uL (2.2-4.8); NEUTROPHILS % (AUTO) 70.7 % (42.0-75.0); RED CELL DISTRIBUTION WIDTH 20.3 % (11.6-16.5)
[2022-12-02 06:17] LABS: PLATELET MORPHOLOGY COMMENT NORMAL (NORMAL); WHITE BLOOD COUNT 6.7 X10^3/uL (3.6-10.0)
[2022-12-02 06:18] LABS: ANISOCYTOSIS 1+; OVALOCYTES SLIGHT
[2022-12-02] MEDS: PULMICORT NEB TX 0.5 MG NEB SCH ×2 (08:05→21:00)
--- NOTE | 2022-12-02 08:34 | DR.H&P ---
H&P History & Physical for Day of: H&P Date: 12/02/22 Chief Complaint Chief Complaint: Fell at home Allergies Allergies Allergy/AdvReac Type Severity Reaction Status Date / Time No Known Drug Allergies Allergy Verified 03/15/22 16:31 History of Present Illness History of Present Illness: This is a 82-year-old white female who fell at home and skinned her left elbow. Patient is a poor historian and somewhat confused coming in so was difficult in obtaining a proper history on her. EMS was called and they brought her to the [facility] emergency department. Work-up revealed that she had a urinary tract infection and elevated white blood cell count of 18,000. She is also noted to be mildly dehydrated and hypoxic. Patient does use home oxygen 2 L nasal cannula she reports that she has had increased congestion in the chest. Exam revealed that she had diffuse wheezing and rhonchi and her O2 sat on room air was in the 80s. Because of this we el ected to keep her and treated with IV Rocephin and start her on Xopenex nebs and give her slow IV hydration overnight. This morning the patient is more alert and is sitting up in bed eating breakfast. She does have a PEG tube for a recent esophageal surgery and is not supposed to take anything by mouth however the patient is eating and gets agitated when she is told that she cannot eat or drink by mouth. She is also a known diabetic and she reports a history of congestive heart failure as well. It is noted her BNP was elevated yesterday at about 1600 and this morning is improved to just above 600. She does report some continuing dyspnea this morning however it is improved since admission yesterday. Past Medical History Past Medical History: Anemia, Anxiety, Arthritis, CHF, COPD, Coronary Artery Disease, Diabetes, Dyslipidemia, GERD, Hypertension, [place] and Renal Disease Past Surgical History Surgical History: Carotid Endarterectomy, Hysterectomy and Ortho Surgery Family History Family Medical History: Diabetes Mellitus, [place] and Hypertension Social History Does patient currently use any type of tobacco product: No Have you used tobacco products in the last 12 months: No Type of Tobacco Use: None Does any household member use tobacco: No Alcohol Use: None Drug Use: None Medications Home Medications: No Known Drug Allergies Allergy (Verified 03/15/22 16:31) CONTINUE taking the following medications aspirin 81 mg tablet 81 mg PO DAILY 12/01/22 [History] atenolol 25 mg tablet 25 mg PO DAILY 12/01/22 [History] atorvastatin 20 mg tablet 20 mg PO HS 12/01/22 [History] clonazepam 2 mg tablet 1 - 2 mg PO QPM PRN Insomnia 12/01/22 [History] fluticasone fur. 100 mcg-umeclid 62.5 mcg-vilant 25 mcg inhalat.powder (Trelegy Ellipta) 1 inh inhalation DAILY 12/01/22 [History] ketotifen fumarate 0.025 % (0.035 %) eye drops 1 drp ophthalmic (eye) Q8H 12/01/22 [History] lidocaine 5 % topical patch 1 patch transdermal QDAY 12/01/22 [History] metformin 850 mg tablet 850 mg PO BID 12/01/22 [History] nitroglycerin 0.4 mg/hr transdermal 24 hour patch 1 patch transdermal DAILY 12/01/22 [History] roflumilast 500 mcg tablet 500 mcg PO DAILY 12/01/22 [History] Labs Result Diagrams: 12/02/22 05:05 12/02/22 05:05 Labs: 12/01/22 12:16 Urine,Catheterized Urine Culture - Preliminary 12/01/22 14:08 Blood Blood Culture - Preliminary Laboratory WBC 6.7 X10^3/uL (3.6-10.0) D 12/02/22 05:05 RBC 3.40 X10^6/uL (3.5-5.4) L 12/02/22 05:05 Hgb 9.7 g/dL (12.0-16.0) L D 12/02/22 05:05 Hct 30.4 % (36.0-47.0) L 12/02/22 05:05 MCV 89.5 fL (80.0-100.0) 12/02/22 05:05 MCH 28.5 pg (27.0-34.0) 12/02/22 05:05 MCHC 31.8 g/dL (33.0-35.0) L 12/02/22 05:05 RDW 20.3 % (11.6-16.5) H 12/02/22 05:05 Plt Count 244 X10^3/uL (150.0-450.0) 12/02/22 05:05 Plt Count Comment Adequate (ADEQUATE) 12/02/22 05:05 MPV 9.5 fL (7.4-11.0) 12/02/22 05:05 Neut % (Auto) 70.7 % (42.0-75.0) 12/02/22 05:05 Lymph % (Auto) 19.8 % (21.0-51.0) L 12/02/22 05:05 [place] % (Auto) 7.7 % (0.0-13.0) 12/02/22 05:05 Eos % (Auto) 1.2 % (0.9-2.9) 12/02/22 05:05 Baso % (Auto) 0.6 % (0.2-1.0) 12/02/22 05:05 Neut # (Auto) 4.8 x10^3/uL (2.2-4.8) 12/02/22 05:05 Lymph # (Auto) 1.3 X10^3/uL (1.3-2.9) 12/02/22 05:05 [place] # (Auto) 0.5 x10^3/uL (0.3-0.8) 12/02/22 05:05 Eos # (Auto) 0.1 x10^3/uL (0.0-0.2) 12/02/22 05:05 Baso # (Auto) 0.0 X10^3/uL (0.0-0.1) 12/02/22 05:05 Absolute Nucleated RBC 0.1 /100WBC 12/02/22 05:05 Total Counted 100 12/01/22 11:49 Neutrophils % (Manual) 89 % (39-76) H 12/01/22 11:49 Lymphocytes % (Manual) 4 % (13-43) L 12/01/22 11:49 Monocytes % (Manual) 5 % (4-9) 12/01/22 11:49 Eosinophils % (Manual) 2 % (0-6) 12/01/22 11:49 Plt Morphology Comment Normal (NORMAL) 12/02/22 05:05 RBC Morphology Abnormal (NORMAL) A 12/02/22 05:05 Anisocytosis 1+ A 12/02/22 05:05 Ovalocytes Slight A 12/02/22 05:05 Sample Site Lbra 12/01/22 13:35 ABG pH 7.310 (7.35-7.45) L 12/01/22 13:35 ABG pCO2 82.0 mmHg (35.0-45.0) H* 12/01/22 13:35 ABG pO2 172.0 mmHg (80.0-100.0) H 12/01/22 13:35 ABG HCO3 41.3 mmol/L (22-26) H* 12/01/22 13:35 ABG O2 Saturation 99.0 % (90-100) 12/01/22 13:35 ABG Base Excess 11.7 mmol/L (-2.0-2.0) H 12/01/22 13:35 Laci Test N/a 12/01/22 13:35 A-a Gradient 153.0 mmHg 12/01/22 13:35 FiO2 60.0 12/01/22 13:35 Blood Gas Comments Pt maria l well elj 12/01/22 13:35 Sodium 144 mmol/L (136-145) 12/02/22 05:05 Corrected Sodium TNP 12/02/22 05:05 Potassium 3.9 mmol/L (3.5-5.1) 12/02/22 05:05 Chloride 104 mmol/L (98-107) 12/02/22 05:05 Carbon Dioxide 37.0 mmol/L (21-32) H 12/02/22 05:05 BUN 26 mg/dL (7-18) H 12/02/22 05:05 Creatinine 1.06 mg/dL (0.55-1.02) H 12/02/22 05:05 Est GFR (MDRD) Af Amer > 60 (>60) 12/02/22 05:05 Est GFR (MDRD) Non-Af 53 (>60) L 12/02/22 05:05 Glucose 107 mg/dL (65-99) H 12/02/22 05:05 POC Glucose (mg/dL) 111 mg/dL (65-99) H 12/02/22 05:06 Calcium 8.2 mg/dL (8.5-10.1) L 12/02/22 05:05 Corrected Calcium 10.1 mg/dL (8.5-10.1) 12/01/22 11:49 Total Bilirubin 0.30 mg/dL (0.2-1.0) 12/01/22 11:49 AST 29 Units/L (15-37) 12/01/22 11:49 ALT 41 Units/L (12-78) 12/01/22 11:49 Alkaline Phosphatase 93 Units/L (46-116) 12/01/22 11:49 B-Natriuretic Peptide 672 pg/mL (0-79) H* 12/02/22 05:05 Total Protein 7.2 g/dL (6.4-8.2) 12/01/22 11:49 Albumin 3.2 g/dL (3.4-5.0) L 12/01/22 11:49 Globulin 4.0 g/dL (2.5-4.5) 12/01/22 11:49 Albumin/Globulin Ratio 0.8 Ratio (1.1-2.1) L 12/01/22 11:49 Specimen Type Catherized urine 12/01/22 12:16 Urine Color Yellow (YELLOW) 12/01/22 12:16 Urine Appearance Hazy (CLEAR) 12/01/22 12:16 Urine pH 6.0 (5.0 - 8.0) 12/01/22 12:16 Ur Specific [place] 1.010 (1.000-1.030) 12/01/22 12:16 Urine Protein 2+ (NEGATIVE) 12/01/22 12:16 Urine Glucose (UA) 4+ (NEGATIVE) 12/01/22 12:16 Urine Ketones Negative (NEGATIVE) 12/01/22 12:16 Urine Blood 1+ (NEGATIVE) 12/01/22 12:16 Urine Nitrite Negative (NEGATIVE) 12/01/22 12:16 Urine Bilirubin Negative (NEGATIVE) 12/01/22 12:16 Urine Urobilinogen Normal (NORMAL) 12/01/22 12:16 Ur Leukocyte Esterase 3+ (NEGATIVE) 12/01/22 12:16 Urine RBC 0-2 /HPF (0-3) 12/01/22 12:16 Urine WBC 5-10 /HPF (0-5) A 12/01/22 12:16 Ur Squamous Epith Cells Rare /HPF (NEGATIVE) 12/01/22 12:16 Amorphous Sediment Trace /HPF (NEGATIVE) 12/01/22 12:16 Urine Bacteria 1+ /HPF (NEGATIVE) 12/01/22 12:16 Ur Culture Indicated? Yes/culture set up 12/01/22 12:16 Urine Opiates Screen Negative (NEG=<300) 12/01/22 12:16 Urine Methadone Screen Negative (NEG=<300) 12/01/22 12:16 Ur Barbiturates Screen Negative (NEG=<200) 12/01/22 12:16 Ur Phencyclidine Scrn Negative (NEG=<25) 12/01/22 12:16 Ur Amphetamines Screen Negative (NEG=<1000) 12/01/22 12:16 U Benzodiazepines Scrn Negative (NEG=<200) 12/01/22 12:16 Urine Cocaine Screen Negative (NEG=<300) 12/01/22 12:16 U Marijuana (THC) Screen Negative (NEG=<50) 12/01/22 12:16 Review of Systems Constitutional: Weakness and Malaise; denies Chills Eyes: No Symptoms Reported ENT: No Symptoms Reported Respiratory: Cough, Shortness of Breath, SOB with Excertion and Wheezing; denies Dry, Hemoptysis or Pleuritic Pain Cardiovascular: Orthopnea and Edema; denies Chest Pain or Palpitations Gastrointestinal: No Symptoms Reported Genitourinary: Retention; denies Frequency Musculoskeletal: Arm Pain and Back Pain Skin: Wound Neurological: Weakness, Incoordination and Confusion (Confusion on admission but now resolved.); denies Numbness or Change in Speech Physical Exam Vital Signs: Temperature 97.5 F Pulse Rate [Right Brachial] 71 Pulse Rate 62 Respiratory Rate 21 Blood Pressure [Left Arm] 154/59 Blood Pressure [Right Arm] 149/67 Blood Pressure 129/59 O2 Sat by Pulse Oximetry 98 Oriented: Normal, Time, Person and Place; negative Not Oriented or Unable to test Eyes: Normal Ear: Normal Nose: Normal Respiratory: Diminished Throughout, Rhonchi Throughout and Wheezes Throughout Cardiovascular: Normal Auscultation: Bowel Sounds: Normal Palpation: Normal Tenderness: Normal Skin: Decreased Turgur Musculoskeletal: Elbow Psychiatric: Normal; negative Anxiety, Depression or Agitation Mood Description: Calm Affect: Normal; negative Angry, Anxious, Depressed, Flat, Hysterical, Quiet or Violent Speech Pattern: Clear and Appropriate; negative Unclear, Inappropriate, Delayed, Slurred or Excessive Assessment/Plan (1) Acute exacerbation of chronic obstructive pulmonary disease (COPD): Status: Acute Plan: Continue budesonide and Xopenex nebs. Continue IV Rocephin and I wi ll add IV Vibramycin today at 100 mg IV every 12 hours. I will hold off on steroids at this time as she is a diabetic. (2) Hypertension: Status: Acute Plan: Continue atenolol 25 mg daily. I will start her on losartan 25 mg daily for renovascular protection secondary to her diabetes and history of congestive heart failure. (3) Hypoxia: Status: Acute Plan: Supplemental O2 and IV diuresis with Lasix 20 mg IV every 12 hours. (4) Diabetes mellitus type 2 in nonobese: Status: Acute Plan: Continue slight scale regular insulin per protocol. (5) CHF exacerbation: Status: Acute Plan: Patient was started on Lasix 40 mg p.o. daily I will change today to 20 mg IV twice daily. Also start her on potassium chloride 10 mill equivalents twice daily. Recheck BMP tomorrow morning as well as portable chest x-ray. Review H&P Reviewed: Yes Patient was examined?: Yes
[2022-12-02] MEDS: ASPIRIN EC 81 MG PO SCH (08:40)
[2022-12-02] MEDS: TENORMIN PO SCH (08:40)
[2022-12-02] MEDS: FARXIGA PO SCH (08:41)
[2022-12-02] MEDS: MICRO K EXTEN CAP 10 MEQ PO SCH ×2 (08:41→20:24)
[2022-12-02] MEDS: ROCEPHIN VIAL 1 GRAM 1 G in NS 100 ML IV 100 ML IV SCH (08:41)
[2022-12-02] MEDS: PriLOSEC PO SCH (08:41)
[2022-12-02] MEDS: VIBRAMYCIN 100 MG in D5W 250 ML IV 250 ML IV SCH ×2 (08:41→20:24)
[2022-12-02] MEDS: LIPITOR TAB 20 MG PO SCH (08:41)
[2022-12-02] MEDS: LASIX IVP SCH ×2 (08:41→16:02)
[2022-12-02] MEDS: COZAAR PO SCH (08:43)
[2022-12-02] MEDS: LOVENOX INJ 40 MG SYR SC SCH (08:50)
[2022-12-02] MEDS: NovoLIN R (or HumuLIN R) SUBCUT PRN ×3 (11:13→21:20)
[2022-12-02 12:14] VITALS: BMI 23.4
[2022-12-02] MEDS: ZOSYN VIAL 3.375 GRAMS 3.375 G in NS 100 ML IV 100 ML IV SCH ×2 (16:02→21:18)
[2022-12-02] MEDS: DALIRESP PO SCH (16:42)
[2022-12-02] MEDS: SNACK - Diabetic Appropriate PO SCH (19:52)
[2022-12-02] MEDS ORDERED: VIBRAMYCIN IV ONE (20:02)
[2022-12-02] MEDS ORDERED: NS 100 ML IV 100 ML ONE (20:03)
[2022-12-03] MEDS: NS 1,000 ML IV 1,000 ML IV SCH ×5 (05:01→23:40)
[2022-12-03] MEDS: ZOSYN VIAL 3.375 GRAMS 3.375 G in NS 100 ML IV 100 ML IV SCH ×3 (05:01→21:47)
[2022-12-03] MEDS: XOPENEX 1.25 MG/3 ML NEBULE NEB SCH ×3 (06:00→21:00)
[2022-12-03 06:33] LABS: BASOPHILS # (AUTO) 0.1 X10^3/uL (0.0-0.1); BASOPHILS % (AUTO) 1.2 % (0.2-1.0); EOSINOPHILS # (AUTO) 0.1 x10^3/uL (0.0-0.2); EOSINOPHILS % (AUTO) 1.6 % (0.9-2.9); HEMATOCRIT 32.9 % (36.0-47.0); HEMOGLOBIN 10.5 g/dL (12.0-16.0); LYMPHOCYTES # (AUTO) 1.3 X10^3/uL (1.3-2.9); LYMPHOCYTES % (AUTO) 14.6 % (21.0-51.0); MEAN CORPUSCULAR HEMOGLOBIN 28.5 pg (27.0-34.0); MEAN CORPUSCULAR HGB CONC 31.9 g/dL (33.0-35.0); MEAN CORPUSCULAR VOLUME 89.3 fL (80.0-100.0); MONOCYTES # (AUTO) 0.7 x10^3/uL (0.3-0.8); MONOCYTES % (AUTO) 8.3 % (0.0-13.0); NEUTROPHILS # (AUTO) 6.6 x10^3/uL (2.2-4.8); NEUTROPHILS % (AUTO) 74.3 % (42.0-75.0); RED BLOOD COUNT 3.69 X10^6/uL (3.5-5.4); RED CELL DISTRIBUTION WIDTH 20.6 % (11.6-16.5); WHITE BLOOD COUNT 8.9 X10^3/uL (3.6-10.0)
[2022-12-03 06:44] LABS: ALBUMIN 2.7 g/dL (3.4-5.0); CALCIUM 8.4 mg/dL (8.5-10.1); CARBON DIOXIDE 39.2 mmol/L (21-32); COR CA(FOR HYPOALB) 9.4 mg/dL (8.5-10.1); CREATININE 1.26 mg/dL (0.55-1.02); MAGNESIUM 1.6 mg/dL (2.0-2.9)
[2022-12-03 07:17] LABS: ANISOCYTOSIS 1+; OVALOCYTES SLIGHT; PLATELET MORPHOLOGY COMMENT NORMAL (NORMAL)
--- NOTE | 2022-12-03 07:34 | RAD ---
HISTORYSOB, CHF, COPDSTUDYCHEST, 1 GNUFHNFFAVACTU03/08/2023.TECHNIQUEPA or AP view of the chestFINDINGSCardiac and mediastinal contours are within normal limits. Severe atherosclerotic plaque at the aortic knob. No consolidation or segmental lung collapse. There is blunting the left costophrenic sulcus.IMPRESSIONBlunted left costophrenic sulcus can be seen with small pleural effusion or pleuro-parynchemal scarring.Electronically signed by: Naseem Ford (Dec 03, 2022 07:32:58)
[2022-12-03] MEDS: PULMICORT NEB TX 0.5 MG NEB SCH ×2 (08:35→21:00)
[2022-12-03] MEDS: DALIRESP PO SCH (09:57)
[2022-12-03] MEDS: TENORMIN PO SCH (09:57)
[2022-12-03] MEDS: MICRO K EXTEN CAP 10 MEQ PO SCH ×2 (09:58→20:24)
[2022-12-03] MEDS: LIPITOR TAB 20 MG PO SCH (09:58)
[2022-12-03] MEDS: ASPIRIN EC 81 MG PO SCH (09:58)
[2022-12-03] MEDS: PriLOSEC PO SCH (09:58)
[2022-12-03] MEDS: FARXIGA PO SCH (09:58)
[2022-12-03] MEDS: COZAAR PO SCH (09:58)
[2022-12-03] MEDS: LASIX IVP SCH ×4 (09:58→18:32)
[2022-12-03] MEDS: LOVENOX INJ 40 MG SYR SC SCH (09:59)
[2022-12-03] MEDS: VIBRAMYCIN 100 MG in D5W 250 ML IV 250 ML IV SCH ×2 (09:59→20:23)
[2022-12-03] MEDS: NovoLIN R (or HumuLIN R) SUBCUT PRN ×2 (11:31→17:13)
--- NOTE | 2022-12-03 12:19 | PCM.PROG ---
Progress Note Progress Note for Day of Date of Exam: 12/03/22 Subjective Subjective: This is a 82-year-old white female who was admitted to the hospital on Tuesday, 01 December 2022. She was admitted for altered mental status, CHF exacerbation, UTI secondary to ESBL Escherichia coli which is sensitive to Zosyn and COPD exacerbation. Yesterday morning the patient had improved greatly since admission and this morning she is even better she reports. She is ambulating to the bathroom and back with no problem however she is noted to be on 3 L nasal cannula whereas she is normally on 2 L nasal cannula of O2 at home. She is improving daily her BNP is down to 521 as it was greater than 1600 coming in. We are increasing her Lasix this morning to 40 mg IV every 12 from 20 IV every 12 for greater diuresis as her chest x-ray this morning still showed a small left pleural effusion however auscultation of her lungs this morning revealed that she is much improved regarding expiratory wheezing and rhonchi that she had yesterday morning. Patient overall is greatly improved since admission and can likely be discharged tomorrow and should be discharged home on Lasix 40 mg p.o. twice daily as she has previously been on this 40 mg daily. The the E. coli ESBL is sensitive to p.o. Bactrim DS and the patient should receive this upon discharge if she is ready go home tomorrow. It is noted her magnesium is low this morning and we will be putting her on magnesium oxide 400 mg twice daily to correct for this. Past Medical Family Social History Allergies: Allergies No Known Drug Allergies Allergy (Verified 03/15/22 16:31) Vital Signs and I&O's Vital Signs: Temperature 98.5 F Pulse Rate [Right Brachial] 90 Pulse Rate 68 Respiratory Rate 20 Blood Pressure [Left Arm] 154/59 Blood Pressure [Right Arm] 127/60 Blood Pressure 129/59 O2 Sat by Pulse Oximetry 95 Intake and Output: Intake & Output 12/01/22 12/02/22 12/03/22 12/04/22 11:59 11:59 11:59 11:59 Intake Total 1920 / 1920 2790 / 2790 Output Total 600 / 600 1900 / 1900 Balance 1320 / 1320 890 / 890 Physical Exam Oriented: Normal, Time, Person and Place; negative Not Oriented or Unable to test Eyes: Normal Ear: Normal Nose: Normal Respiratory: Right, Left and Diminished; negative Wheezes or Rhonchi Cardiovascular: Normal Auscultation: Bowel Sounds: Normal Tenderness: Normal Skin: Decreased Turgur Musculoskeletal: Elbow Psychiatric: Normal; negative Anxiety, Depression or Agitation Mood Description: Calm Affect: Normal; negative Angry, Anxious, Depressed, Flat, Hysterical, Quiet or Violent Speech Pattern: Clear and Appropriate Laboratory and Diagnostics Result Diagrams: 12/03/22 05:42 12/03/22 05:42 Labs: 12/01/22 14:08 Blood Blood Culture - Preliminary 12/01/22 12:16 Urine,Catheterized Urine Culture - Final Escherichia Coli Laboratory WBC 8.9 X10^3/uL (3.6-10.0) 12/03/22 05:42 RBC 3.69 X10^6/uL (3.5-5.4) 12/03/22 05:42 Hgb 10.5 g/dL (12.0-16.0) L 12/03/22 05:42 Hct 32.9 % (36.0-47.0) L 12/03/22 05:42 MCV 89.3 fL (80.0-100.0) 12/03/22 05:42 MCH 28.5 pg (27.0-34.0) 12/03/22 05:42 MCHC 31.9 g/dL (33.0-35.0) L 12/03/22 05:42 RDW 20.6 % (11.6-16.5) H 12/03/22 05:42 Plt Count 221 X10^3/uL (150.0-450.0) 12/03/22 05:42 Plt Count Comment Adequate (ADEQUATE) 12/03/22 05:42 MPV 10.0 fL (7.4-11.0) 12/03/22 05:42 Neut % (Auto) 74.3 % (42.0-75.0) 12/03/22 05:42 Lymph % (Auto) 14.6 % (21.0-51.0) L 12/03/22 05:42 [place] % (Auto) 8.3 % (0.0-13.0) 12/03/22 05:42 Eos % (Auto) 1.6 % (0.9-2.9) 12/03/22 05:42 Baso % (Auto) 1.2 % (0.2-1.0) H 12/03/22 05:42 Neut # (Auto) 6.6 x10^3/uL (2.2-4.8) H 12/03/22 05:42 Lymph # (Auto) 1.3 X10^3/uL (1.3-2.9) 12/03/22 05:42 [place] # (Auto) 0.7 x10^3/uL (0.3-0.8) 12/03/22 05:42 Eos # (Auto) 0.1 x10^3/uL (0.0-0.2) 12/03/22 05:42 Baso # (Auto) 0.1 X10^3/uL (0.0-0.1) 12/03/22 05:42 Absolute Nucleated RBC 0.1 /100WBC 12/03/22 05:42 Total Counted 100 12/01/22 11:49 Neutrophils % (Manual) 89 % (39-76) H 12/01/22 11:49 Lymphocytes % (Manual) 4 % (13-43) L 12/01/22 11:49 Monocytes % (Manual) 5 % (4-9) 12/01/22 11:49 Eosinophils % (Manual) 2 % (0-6) 12/01/22 11:49 Plt Clumps, EDTA Rare 12/03/22 05:42 Plt Morphology Comment Normal (NORMAL) 12/03/22 05:42 RBC Morphology Abnormal (NORMAL) A 12/03/22 05:42 Anisocytosis 1+ A 12/03/22 05:42 Ovalocytes Slight A 12/03/22 05:42 Sample Site Lbra 12/01/22 13:35 ABG pH 7.310 (7.35-7.45) L 12/01/22 13:35 ABG pCO2 82.0 mmHg (35.0-45.0) H* 12/01/22 13:35 ABG pO2 172.0 mmHg (80.0-100.0) H 12/01/22 13:35 ABG HCO3 41.3 mmol/L (22-26) H* 12/01/22 13:35 ABG O2 Saturation 99.0 % (90-100) 12/01/22 13:35 ABG Base Excess 11.7 mmol/L (-2.0-2.0) H 12/01/22 13:35 Laci Test N/a 12/01/22 13:35 A-a Gradient 153.0 mmHg 12/01/22 13:35 FiO2 60.0 12/01/22 13:35 Blood Gas Comments Pt maria l well elj 12/01/22 13:35 Sodium 143 mmol/L (136-145) 12/03/22 05:42 Corrected Sodium 144 mmol/L (136-145) 12/03/22 05:42 Potassium 4.0 mmol/L (3.5-5.1) 12/03/22 05:42 Chloride 100 mmol/L (98-107) 12/03/22 05:42 Carbon Dioxide 39.2 mmol/L (21-32) H 12/03/22 05:42 BUN 23 mg/dL (7-18) H 12/03/22 05:42 Creatinine 1.26 mg/dL (0.55-1.02) H 12/03/22 05:42 Est GFR (MDRD) Af Amer 52 (>60) L 12/03/22 05:42 Est GFR (MDRD) Non-Af 43 (>60) L 12/03/22 05:42 Glucose 162 mg/dL (65-99) H 12/03/22 05:42 POC Glucose (mg/dL) 197 mg/dL (65-99) H 12/03/22 11:18 Calcium 8.4 mg/dL (8.5-10.1) L 12/03/22 05:42 Corrected Calcium 9.4 mg/dL (8.5-10.1) 12/03/22 05:42 Magnesium 1.6 mg/dL (2.0-2.9) L 12/03/22 05:42 Total Bilirubin 0.20 mg/dL (0.2-1.0) 12/03/22 05:42 AST 17 Units/L (15-37) 12/03/22 05:42 ALT 24 Units/L (12-78) 12/03/22 05:42 Alkaline Phosphatase 62 Units/L (46-116) 12/03/22 05:42 B-Natriuretic Peptide 521 pg/mL (0-79) H* 12/03/22 05:42 Total Protein 6.0 g/dL (6.4-8.2) L 12/03/22 05:42 Albumin 2.7 g/dL (3.4-5.0) L 12/03/22 05:42 Globulin 3.3 g/dL (2.5-4.5) 12/03/22 05:42 Albumin/Globulin Ratio 0.8 Ratio (1.1-2.1) L 12/03/22 05:42 Specimen Type Catherized urine 12/01/22 12:16 Urine Color Yellow (YELLOW) 12/01/22 12:16 Urine Appearance Hazy (CLEAR) 12/01/22 12:16 Urine pH 6.0 (5.0 - 8.0) 12/01/22 12:16 Ur Specific [place] 1.010 (1.000-1.030) 12/01/22 12:16 Urine Protein 2+ (NEGATIVE) 12/01/22 12:16 Urine Glucose (UA) 4+ (NEGATIVE) 12/01/22 12:16 Urine Ketones Negative (NEGATIVE) 12/01/22 12:16 Urine Blood 1+ (NEGATIVE) 12/01/22 12:16 Urine Nitrite Negative (NEGATIVE) 12/01/22 12:16 Urine Bilirubin Negative (NEGATIVE) 12/01/22 12:16 Urine Urobilinogen Normal (NORMAL) 12/01/22 12:16 Ur Leukocyte Esterase 3+ (NEGATIVE) 12/01/22 12:16 Urine RBC 0-2 /HPF (0-3) 12/01/22 12:16 Urine WBC 5-10 /HPF (0-5) A 12/01/22 12:16 Ur Squamous Epith Cells Rare /HPF (NEGATIVE) 12/01/22 12:16 Amorphous Sediment Trace /HPF (NEGATIVE) 12/01/22 12:16 Urine Bacteria 1+ /HPF (NEGATIVE) 12/01/22 12:16 Ur Culture Indicated? Yes/culture set up 12/01/22 12:16 Urine Opiates Screen Negative (NEG=<300) 12/01/22 12:16 Urine Methadone Screen Negative (NEG=<300) 12/01/22 12:16 Ur Barbiturates Screen Negative (NEG=<200) 12/01/22 12:16 Ur Phencyclidine Scrn Negative (NEG=<25) 12/01/22 12:16 Ur Amphetamines Screen Negative (NEG=<1000) 12/01/22 12:16 U Benzodiazepines Scrn Negative (NEG=<200) 12/01/22 12:16 Urine Cocaine Screen Negative (NEG=<300) 12/01/22 12:16 U Marijuana (THC) Screen Negative (NEG=<50) 12/01/22 12:16 Radiology Reviewed: Yes Plan (1) Acute exacerbation of chronic obstructive pulmonary disease (COPD): Status: Acute Plan: Continue budesonide and Xopenex nebs. Continue IV Zosyn and I will add IV Vibramycin today at 100 mg IV every 12 hours. I will hold off on steroids at this time as she is a diabetic. Rocephin was discontinued yesterday because we added IV Zosyn because it would also cover the E. coli with ESBL. Patient's Roflumilast was restarted yesterday. (2) Hypertension: Status: Acute Plan: Continue atenolol 25 mg daily. I will start her on losartan 25 mg daily for renovascular protection secondary to her diabetes and history of congestive heart failure. If patient goes home this weekend she should be discharged with losartan 25 mg daily for renovascular protection as she was not on SUSHMA inhibitor or ARB when she was admitted to the hospital on 12/01/2022. (3) Hypoxia: Status: Acute Plan: Supplemental O2 and IV diuresis with Lasix 40 mg IV every 12 hours. (4) Diabetes mellitus type 2 in nonobese: Status: Acute Plan: Continue slight scale regular insulin per protocol. (5) CHF exacerbation: Status: Acute Plan: Increase patient's Lasix to 40 mg IV every 12 hours from 20 mg IV q. hours. I will also recheck a BNP and a portable chest x-ray again tomorrow morning. (6) Hypomagnesemia: Status: Acute Plan: Start magnesium oxide 400 mg p.o. every 12 hours. Recheck magnesium level tomorrow morning. (7) UTI due to extended-spectrum beta lactamase (ESBL) producing Escherichia coli: Status: Acute Plan: Continue patient on Zosyn 3.75 mg and patient can be changed to p.o. Bactrim DS at time of discharge as this had a LACHELLE of less than 1 from the urine culture and sensitivity report that we received from the hospital in [place], [place] that the patient had done earlier in the week.
[2022-12-03] MEDS: MAG-OX TAB PO SCH (17:46)
[2022-12-03] MEDS: SNACK - Diabetic Appropriate PO SCH (20:23)
[2022-12-03] MEDS: ZOFRAN INJ 4 MG VIAL IVP PRN (20:23)
[2022-12-03] MEDS: ULTRAM PO PRN (22:13)
[2022-12-04] MEDS: XOPENEX 1.25 MG/3 ML NEBULE NEB SCH ×3 (05:00→20:15)
[2022-12-04] MEDS: ZOSYN VIAL 3.375 GRAMS 3.375 G in NS 100 ML IV 100 ML IV SCH (05:39)
[2022-12-04] MEDS: NovoLIN R (or HumuLIN R) SUBCUT PRN ×2 (05:46→11:04)
[2022-12-04 06:13] LABS: BASOPHILS # (AUTO) 0.1 X10^3/uL (0.0-0.1); BASOPHILS % (AUTO) 0.7 % (0.2-1.0); EOSINOPHILS % (AUTO) 0.2 % (0.9-2.9); HEMATOCRIT 31.6 % (36.0-47.0); HEMOGLOBIN 10.1 g/dL (12.0-16.0); LYMPHOCYTES # (AUTO) 1.1 X10^3/uL (1.3-2.9); LYMPHOCYTES % (AUTO) 6.9 % (21.0-51.0); MEAN CORPUSCULAR HEMOGLOBIN 28.3 pg (27.0-34.0); MEAN CORPUSCULAR HGB CONC 31.9 g/dL (33.0-35.0); MEAN CORPUSCULAR VOLUME 88.7 fL (80.0-100.0); MEAN PLATELET VOLUME 9.8 fL (7.4-11.0); MONOCYTES # (AUTO) 0.9 x10^3/uL (0.3-0.8); MONOCYTES % (AUTO) 5.8 % (0.0-13.0); NEUTROPHILS % (AUTO) 86.4 % (42.0-75.0); RED BLOOD COUNT 3.57 X10^6/uL (3.5-5.4); RED CELL DISTRIBUTION WIDTH 20.2 % (11.6-16.5); WHITE BLOOD COUNT 16.2 X10^3/uL (3.6-10.0)
[2022-12-04] MEDS: MAG-OX TAB PO SCH ×2 (06:18→17:47)
[2022-12-04 06:22] LABS: ALBUMIN 2.6 g/dL (3.4-5.0); CALCIUM 8.3 mg/dL (8.5-10.1); COR CA(FOR HYPOALB) 9.4 mg/dL (8.5-10.1); CREATININE 1.85 mg/dL (0.55-1.02); MAGNESIUM 1.4 mg/dL (2.0-2.9); TOTAL PROTEIN 6.1 g/dL (6.4-8.2)
[2022-12-04 06:39] LABS: ANISOCYTOSIS 1+; OVALOCYTES SLIGHT; PLATELET MORPHOLOGY COMMENT NORMAL (NORMAL); STOMATOCYTES SLIGHT
[2022-12-04] MEDS ORDERED: MAGNESIUM SULFATE 1 GRAM/100 mL PREMIX 1 G/100 ML BAG IV PRN (08:09)
[2022-12-04] MEDS ORDERED: K-DUR TAB 20 MEQ PO PRN (08:09)
[2022-12-04] MEDS ORDERED: KLOR-CON PO PRN (08:09)
[2022-12-04] MEDS ORDERED: MICRO K EXTEN CAP 10 MEQ PO PRN (08:09)
[2022-12-04] MEDS ORDERED: POTASSIUM CHLORIDE LIQ 20 MEQ UDC PO PRN (08:09)
[2022-12-04] MEDS ORDERED: K-RIDER 10 MEQ/NS 100 ML 10 MEQ/100 ML BAG IV PRN (08:09)
[2022-12-04] MEDS ORDERED: POTASSIUM CHL 40 MEQ/NS 0.45% 500 ML IV PRN (08:09)
[2022-12-04] MEDS ORDERED: POTASSIUM CHL 60 MEQ/NS 0.45% 500 ML IV PRN (08:09)
--- NOTE | 2022-12-04 08:13 | RAD ---
HISTORYCHFSTUDYChest PA and lateral viewsCOMPARISONMarch 2022FINDINGSHeart size normal with coronary artery calcifications and degenerative calcification of mitral annulus. There is no evidence for consolidation, pulmonary edema or pleural fluid. Compression fracture of vertebra at thoracolumbar junction, with vertebroplasty.IMPRESSIONNo acute cardiac, pulmonary or pleural lesion demonstrated.Electronically signed by: DEANN MORALES (Dec 04, 2022 08:12:55)
[2022-12-04] MEDS: PULMICORT NEB TX 0.5 MG NEB SCH ×2 (08:32→20:15)
[2022-12-04] MEDS: LASIX IVP SCH (08:58)
[2022-12-04] MEDS: COZAAR PO SCH (08:58)
[2022-12-04] MEDS: TENORMIN PO SCH (08:59)
[2022-12-04] MEDS: VIBRAMYCIN 100 MG in D5W 250 ML IV 250 ML IV SCH (09:00)
[2022-12-04] MEDS: DALIRESP PO SCH (09:01)
[2022-12-04] MEDS: PriLOSEC PO SCH (09:01)
[2022-12-04] MEDS: FARXIGA PO SCH (09:01)
[2022-12-04] MEDS: LOVENOX INJ 40 MG SYR SC SCH (09:01)
[2022-12-04] MEDS: ASPIRIN EC 81 MG PO SCH (09:01)
[2022-12-04] MEDS: MICRO K EXTEN CAP 10 MEQ PO SCH ×2 (09:03→20:13)
[2022-12-04] MEDS: NS 1,000 ML IV 1,000 ML IV SCH ×2 (09:04→19:40)
[2022-12-04] MEDS: LIPITOR TAB 20 MG PO SCH (09:05)
[2022-12-04] MEDS: MIRAPEX TAB 1 MG PO SCH ×2 (10:09→20:13)
--- NOTE | 2022-12-04 12:07 | PCM.PROG ---
Progress Note Progress Note for Day of Date of Exam: 12/04/22 Subjective Subjective: Patient seen at bedside, no acute events overnight. Patient is currently being treated for ESBL UTI, AMS and CHF exacerbation. She remains on 2-3L NC which is her baseline at home. She denies any N/V/D, tolerating PO intake. She reports chronic cough. Her WBC count this AM is elevated at 16.2. Blood Cx x 1 positive for Gram + cocci. Labs/imaging reviewed WBC 16.2 Hgb 10.1 BUN/Cr: 29/1.85 CXR: no acute process Plan: will DC Zosyn and doxycyline, start Meropenem. Wean O2 as tolerated. Follow blood cultures. Continue current home medications. Will decrease lasix IV to daily. Monitor AM labs. Past Medical Family Social History Allergies: Allergies No Known Drug Allergies Allergy (Verified 03/15/22 16:31) Vital Signs and I&O's Vital Signs: Temperature 98.3 F Pulse Rate [Right Brachial] 71 Pulse Rate 83 Respiratory Rate 14 Blood Pressure [Left Arm] 154/59 Blood Pressure [Right Arm] 94/45 Blood Pressure 129/59 O2 Sat by Pulse Oximetry 95 Intake and Output: Intake & Output 12/01/22 12/02/22 12/03/22 12/04/22 23:59 23:59 23:59 23:59 Intake Total 1020 / 1020 2645 / 2645 2305 / 2305 920 / 920 Output Total 600 / 600 1900 / 1900 Balance 420 / 420 745 / 745 2305 / 2305 920 / 920 Physical Exam Oriented: Normal Eyes: Normal Ear: Normal Nose: Normal Respiratory: Generalized and Diminished Cardiovascular: Normal Auscultation: Bowel Sounds: Normal Tenderness: Normal Skin: Decreased Turgur Musculoskeletal: Elbow Psychiatric: Normal Mood Description: Calm Affect: Normal Speech Pattern: Clear and Appropriate Laboratory and Diagnostics Result Diagrams: 12/04/22 05:33 12/04/22 05:33 Labs: 12/01/22 14:08 Blood Blood Culture - Preliminary 12/01/22 14:20 Blood Blood Culture - Preliminary 12/01/22 12:16 Urine,Catheterized Urine Culture - Final Escherichia Coli Laboratory WBC 16.2 X10^3/uL (3.6-10.0) H 12/04/22 05:33 RBC 3.57 X10^6/uL (3.5-5.4) 12/04/22 05:33 Hgb 10.1 g/dL (12.0-16.0) L 12/04/22 05:33 Hct 31.6 % (36.0-47.0) L 12/04/22 05:33 MCV 88.7 fL (80.0-100.0) 12/04/22 05:33 MCH 28.3 pg (27.0-34.0) 12/04/22 05:33 MCHC 31.9 g/dL (33.0-35.0) L 12/04/22 05:33 RDW 20.2 % (11.6-16.5) H 12/04/22 05:33 Plt Count 234 X10^3/uL (150.0-450.0) 12/04/22 05:33 Plt Count Comment Adequate (ADEQUATE) 12/04/22 05:33 MPV 9.8 fL (7.4-11.0) 12/04/22 05:33 Neut % (Auto) 86.4 % (42.0-75.0) H 12/04/22 05:33 Lymph % (Auto) 6.9 % (21.0-51.0) L 12/04/22 05:33 [place] % (Auto) 5.8 % (0.0-13.0) 12/04/22 05:33 Eos % (Auto) 0.2 % (0.9-2.9) L 12/04/22 05:33 Baso % (Auto) 0.7 % (0.2-1.0) 12/04/22 05:33 Neut # (Auto) 14.0 x10^3/uL (2.2-4.8) H 12/04/22 05:33 Lymph # (Auto) 1.1 X10^3/uL (1.3-2.9) L 12/04/22 05:33 [place] # (Auto) 0.9 x10^3/uL (0.3-0.8) H 12/04/22 05:33 Eos # (Auto) 0.0 x10^3/uL (0.0-0.2) 12/04/22 05:33 Baso # (Auto) 0.1 X10^3/uL (0.0-0.1) 12/04/22 05:33 Absolute Nucleated RBC 0.0 /100WBC 12/04/22 05:33 Total Counted 100 12/01/22 11:49 Neutrophils % (Manual) 89 % (39-76) H 12/01/22 11:49 Lymphocytes % (Manual) 4 % (13-43) L 12/01/22 11:49 Monocytes % (Manual) 5 % (4-9) 12/01/22 11:49 Eosinophils % (Manual) 2 % (0-6) 12/01/22 11:49 Plt Clumps, EDTA Rare 12/03/22 05:42 Plt Morphology Comment Normal (NORMAL) 12/04/22 05:33 RBC Morphology Abnormal (NORMAL) A 12/04/22 05:33 Anisocytosis 1+ A 12/04/22 05:33 Ovalocytes Slight A 12/04/22 05:33 Stomatocytes Slight A 12/04/22 05:33 Sample Site Lbra 12/01/22 13:35 ABG pH 7.310 (7.35-7.45) L 12/01/22 13:35 ABG pCO2 82.0 mmHg (35.0-45.0) H* 12/01/22 13:35 ABG pO2 172.0 mmHg (80.0-100.0) H 12/01/22 13:35 ABG HCO3 41.3 mmol/L (22-26) H* 12/01/22 13:35 ABG O2 Saturation 99.0 % (90-100) 12/01/22 13:35 ABG Base Excess 11.7 mmol/L (-2.0-2.0) H 12/01/22 13:35 Laci Test N/a 12/01/22 13:35 A-a Gradient 153.0 mmHg 12/01/22 13:35 FiO2 60.0 12/01/22 13:35 Blood Gas Comments Pt maria l well elj 12/01/22 13:35 Sodium 136 mmol/L (136-145) 12/04/22 05:33 Corrected Sodium 139 mmol/L (136-145) 12/04/22 05:33 Potassium 4.6 mmol/L (3.5-5.1) 12/04/22 05:33 Chloride 97 mmol/L (98-107) L 12/04/22 05:33 Carbon Dioxide 39.0 mmol/L (21-32) H 12/04/22 05:33 BUN 29 mg/dL (7-18) H 12/04/22 05:33 Creatinine 1.85 mg/dL (0.55-1.02) H 12/04/22 05:33 Est GFR (MDRD) Af Amer 34 (>60) L 12/04/22 05:33 Est GFR (MDRD) Non-Af 28 (>60) L 12/04/22 05:33 Glucose 243 mg/dL (65-99) H 12/04/22 05:33 POC Glucose (mg/dL) 194 mg/dL (65-99) H 12/04/22 10:50 Calcium 8.3 mg/dL (8.5-10.1) L 12/04/22 05:33 Corrected Calcium 9.4 mg/dL (8.5-10.1) 12/04/22 05:33 Magnesium 1.4 mg/dL (2.0-2.9) L 12/04/22 05:33 Total Bilirubin 0.40 mg/dL (0.2-1.0) 12/04/22 05:33 AST 17 Units/L (15-37) 12/04/22 05:33 ALT 18 Units/L (12-78) 12/04/22 05:33 Alkaline Phosphatase 62 Units/L (46-116) 12/04/22 05:33 B-Natriuretic Peptide 602 pg/mL (0-79) H* 12/04/22 05:33 Total Protein 6.1 g/dL (6.4-8.2) L 12/04/22 05:33 Albumin 2.6 g/dL (3.4-5.0) L 12/04/22 05:33 Globulin 3.5 g/dL (2.5-4.5) 12/04/22 05:33 Albumin/Globulin Ratio 0.7 Ratio (1.1-2.1) L 12/04/22 05:33 Specimen Type Catherized urine 12/01/22 12:16 Urine Color Yellow (YELLOW) 12/01/22 12:16 Urine Appearance Hazy (CLEAR) 12/01/22 12:16 Urine pH 6.0 (5.0 - 8.0) 12/01/22 12:16 Ur Specific [place] 1.010 (1.000-1.030) 12/01/22 12:16 Urine Protein 2+ (NEGATIVE) 12/01/22 12:16 Urine Glucose (UA) 4+ (NEGATIVE) 12/01/22 12:16 Urine Ketones Negative (NEGATIVE) 12/01/22 12:16 Urine Blood 1+ (NEGATIVE) 12/01/22 12:16 Urine Nitrite Negative (NEGATIVE) 12/01/22 12:16 Urine Bilirubin Negative (NEGATIVE) 12/01/22 12:16 Urine Urobilinogen Normal (NORMAL) 12/01/22 12:16 Ur Leukocyte Esterase 3+ (NEGATIVE) 12/01/22 12:16 Urine RBC 0-2 /HPF (0-3) 12/01/22 12:16 Urine WBC 5-10 /HPF (0-5) A 12/01/22 12:16 Ur Squamous Epith Cells Rare /HPF (NEGATIVE) 12/01/22 12:16 Amorphous Sediment Trace /HPF (NEGATIVE) 12/01/22 12:16 Urine Bacteria 1+ /HPF (NEGATIVE) 12/01/22 12:16 Ur Culture Indicated? Yes/culture set up 12/01/22 12:16 Urine Opiates Screen Negative (NEG=<300) 12/01/22 12:16 Urine Methadone Screen Negative (NEG=<300) 12/01/22 12:16 Ur Barbiturates Screen Negative (NEG=<200) 12/01/22 12:16 Ur Phencyclidine Scrn Negative (NEG=<25) 12/01/22 12:16 Ur Amphetamines Screen Negative (NEG=<1000) 12/01/22 12:16 U Benzodiazepines Scrn Negative (NEG=<200) 12/01/22 12:16 Urine Cocaine Screen Negative (NEG=<300) 12/01/22 12:16 U Marijuana (THC) Screen Negative (NEG=<50) 12/01/22 12:16 Plan (1) Bacteremia: Status: Acute (2) UTI due to extended-spectrum beta lactamase (ESBL) producing Escherichia coli: Status: Acute Plan: k. (3) Acute exacerbation of chronic obstructive pulmonary disease (COPD): Status: Acute (4) Hypertension: Status: Acute (5) Hypoxia: Status: Acute Plan: Supplemental O2 and IV diuresis with Lasix 40 mg IV every 12 hours. (6) CHF exacerbation: Status: Acute (7) Hypomagnesemia: Status: Acute (8) Diabetes mellitus type 2 in nonobese: Status: Acute Plan: Continue slight scale regular insulin per protocol.
[2022-12-04] MEDS: MERREM VIAL 500 MG in NS 50 ML IV 50 ML IV SCH ×2 (13:18→20:09)
[2022-12-04] MEDS: SNACK - Diabetic Appropriate PO SCH (20:12)
[2022-12-05] MEDS: NS 1,000 ML IV 1,000 ML IV SCH ×3 (00:54→20:58)
[2022-12-05 05:03] LABS: BASOPHILS % (AUTO) 0.3 % (0.2-1.0); EOSINOPHILS # (AUTO) 0.1 x10^3/uL (0.0-0.2); EOSINOPHILS % (AUTO) 1.3 % (0.9-2.9); HEMATOCRIT 30.9 % (36.0-47.0); HEMOGLOBIN 9.9 g/dL (12.0-16.0); LYMPHOCYTES # (AUTO) 0.9 X10^3/uL (1.3-2.9); LYMPHOCYTES % (AUTO) 13.7 % (21.0-51.0); MEAN CORPUSCULAR HEMOGLOBIN 28.5 pg (27.0-34.0); MEAN CORPUSCULAR HGB CONC 32.2 g/dL (33.0-35.0); MEAN CORPUSCULAR VOLUME 88.6 fL (80.0-100.0); MEAN PLATELET VOLUME 9.6 fL (7.4-11.0); MONOCYTES # (AUTO) 0.6 x10^3/uL (0.3-0.8); MONOCYTES % (AUTO) 8.8 % (0.0-13.0); NEUTROPHILS # (AUTO) 4.9 x10^3/uL (2.2-4.8); NEUTROPHILS % (AUTO) 75.9 % (42.0-75.0); RED BLOOD COUNT 3.49 X10^6/uL (3.5-5.4); RED CELL DISTRIBUTION WIDTH 20.1 % (11.6-16.5)
[2022-12-05] MEDS: XOPENEX 1.25 MG/3 ML NEBULE NEB SCH ×3 (05:15→20:39)
[2022-12-05 05:31] LABS: ALBUMIN 2.3 g/dL (3.4-5.0); CALCIUM 8.6 mg/dL (8.5-10.1); CARBON DIOXIDE 38.1 mmol/L (21-32); CREATININE 1.3 mg/dL (0.55-1.02); TOTAL PROTEIN 5.7 g/dL (6.4-8.2)
[2022-12-05 05:41] LABS: WHITE BLOOD COUNT 6.4 X10^3/uL (3.6-10.0)
[2022-12-05 05:42] LABS: ANISOCYTOSIS 1+; OVALOCYTES PRESENT; PLATELET MORPHOLOGY COMMENT NORMAL (NORMAL); STOMATOCYTES PRESENT
[2022-12-05] MEDS: MAG-OX TAB PO SCH ×2 (06:06→16:06)
[2022-12-05] MEDS: ZOFRAN INJ 4 MG VIAL IVP PRN ×2 (06:16→16:06)
[2022-12-05] MEDS: PULMICORT NEB TX 0.5 MG NEB SCH ×2 (08:28→20:39)
[2022-12-05] MEDS: COZAAR PO SCH (08:39)
[2022-12-05] MEDS: FARXIGA PO SCH (08:39)
[2022-12-05] MEDS: DALIRESP PO SCH (08:39)
[2022-12-05] MEDS: TENORMIN PO SCH (08:39)
[2022-12-05] MEDS: ASPIRIN EC 81 MG PO SCH (08:39)
[2022-12-05] MEDS: PriLOSEC PO SCH (08:39)
[2022-12-05] MEDS: LOVENOX INJ 40 MG SYR SC SCH (08:40)
[2022-12-05] MEDS: MIRAPEX TAB 1 MG PO SCH ×2 (08:40→21:03)
[2022-12-05] MEDS: MERREM VIAL 500 MG in NS 50 ML IV 50 ML IV SCH ×2 (08:41→20:53)
[2022-12-05] MEDS: LIPITOR TAB 20 MG PO SCH (08:43)
[2022-12-05] MEDS: MICRO K EXTEN CAP 10 MEQ PO SCH ×2 (09:22→20:50)
[2022-12-05] MEDS: KLONOPIN TAB 1 MG PO PRN ×2 (11:25→20:50)
[2022-12-05] MEDS: LASIX IVP SCH ×2 (12:40→13:10)
[2022-12-05] MEDS: NovoLIN R (or HumuLIN R) SUBCUT PRN (13:23)
[2022-12-05 16:18] LABS: ABG BASE EXCESS 16.5 mmol/L (-2.0-2.0)
[2022-12-05 16:19] LABS: ABG HCO3 45.8 mmol/L (22-26)
[2022-12-05] MEDS: SNACK - Diabetic Appropriate PO SCH (20:52)
[2022-12-05] MEDS: ULTRAM PO PRN (20:57)
[2022-12-06 05:03] LABS: BASOPHILS % (AUTO) 0.6 % (0.2-1.0); EOSINOPHILS # (AUTO) 0.2 x10^3/uL (0.0-0.2); HEMATOCRIT 31.4 % (36.0-47.0); HEMOGLOBIN 10.1 g/dL (12.0-16.0); LYMPHOCYTES % (AUTO) 15.7 % (21.0-51.0); MEAN CORPUSCULAR HEMOGLOBIN 28.8 pg (27.0-34.0); MEAN CORPUSCULAR HGB CONC 32.3 g/dL (33.0-35.0); MEAN CORPUSCULAR VOLUME 89.4 fL (80.0-100.0); MEAN PLATELET VOLUME 9.8 fL (7.4-11.0); MONOCYTES # (AUTO) 0.6 x10^3/uL (0.3-0.8); MONOCYTES % (AUTO) 9.7 % (0.0-13.0); NEUTROPHILS # (AUTO) 4.7 x10^3/uL (2.2-4.8); RED BLOOD COUNT 3.52 X10^6/uL (3.5-5.4); RED CELL DISTRIBUTION WIDTH 19.4 % (11.6-16.5); WHITE BLOOD COUNT 6.6 X10^3/uL (3.6-10.0)
[2022-12-06 05:17] LABS: ALBUMIN 2.3 g/dL (3.4-5.0); CALCIUM 8.8 mg/dL (8.5-10.1); CARBON DIOXIDE 40.7 mmol/L (21-32); COR CA(FOR HYPOALB) 10.2 mg/dL (8.5-10.1); CREATININE 1.18 mg/dL (0.55-1.02); MAGNESIUM 2.4 mg/dL (2.0-2.9); TOTAL PROTEIN 5.8 g/dL (6.4-8.2)
[2022-12-06] MEDS: NS 1,000 ML IV 1,000 ML IV SCH ×2 (05:37→21:59)
[2022-12-06] MEDS: MAG-OX TAB PO SCH ×2 (06:16→20:06)
[2022-12-06] MEDS: XOPENEX 1.25 MG/3 ML NEBULE NEB SCH ×3 (06:16→20:05)
[2022-12-06] MEDS: MERREM VIAL 500 MG in NS 50 ML IV 50 ML IV SCH ×2 (08:26→20:06)
[2022-12-06] MEDS: LOVENOX INJ 40 MG SYR SC SCH (08:27)
[2022-12-06] MEDS: LASIX IVP SCH (08:27)
[2022-12-06] MEDS: FARXIGA PO SCH (08:28)
[2022-12-06] MEDS: MIRAPEX TAB 1 MG PO SCH ×2 (08:28→20:08)
[2022-12-06] MEDS: ASPIRIN EC 81 MG PO SCH (08:29)
[2022-12-06] MEDS: TENORMIN PO SCH (08:29)
[2022-12-06] MEDS: COZAAR PO SCH (08:30)
[2022-12-06] MEDS: PriLOSEC PO SCH (08:31)
[2022-12-06] MEDS: LIPITOR TAB 20 MG PO SCH (08:31)
[2022-12-06] MEDS: DALIRESP PO SCH (08:31)
[2022-12-06] MEDS: MICRO K EXTEN CAP 10 MEQ PO SCH ×2 (08:32→20:07)
--- NOTE | 2022-12-06 08:49 | PCM.PROG ---
Progress Note Progress Note for Day of Date of Exam: 12/05/22 Subjective Subjective: Patient seen at bedside, no acute events overnight. Patient is currently being treated for ESBL UTI, AMS and CHF exacerbation. She remains on 2-3L NC which is her baseline at home. She has been using BiPAP prn. She denies any N/V/D, tolerating PO intake. She reports chronic cough. Blood Cx x 1 did grow viridan strep. Labs/imaging reviewed WBC 6.4 Hgb 9.9 Mg 1.7 CXR: no acute process Plan: Repeat blood cultures, continue Meropenem. Wean O2 as tolerated. Follow blood cultures. Continue current home medications. Continue IV lasix. Replace Mag a per protocol. Monitor AM labs. Past Medical Family Social History Allergies: Allergies No Known Drug Allergies Allergy (Verified 03/15/22 16:31) Vital Signs and I&O's Vital Signs: Temperature 98.0 F Pulse Rate [Right Brachial] 77 Pulse Rate 98 Respiratory Rate 20 Blood Pressure [Left Arm] 118/57 Blood Pressure [Right Arm] 119/56 Blood Pressure 129/59 O2 Sat by Pulse Oximetry 94 Intake and Output: Intake & Output 12/03/22 12/04/22 12/05/22 12/06/22 22:59 22:59 23:59 23:59 Intake Total 290 / 290 Balance 290 / 290 Physical Exam Oriented: Normal Eyes: Normal Ear: Normal Nose: Normal Respiratory: Generalized and Diminished Cardiovascular: Normal Auscultation: Bowel Sounds: Normal Tenderness: Normal Skin: Decreased Turgur Musculoskeletal: Elbow Psychiatric: Normal Mood Description: Calm Affect: Normal Speech Pattern: Clear and Appropriate Laboratory and Diagnostics Result Diagrams: 12/06/22 04:34 12/06/22 04:34 Labs: 12/01/22 14:08 Blood Blood Culture - Final Strep [place] (Veridan Strep) 12/01/22 14:20 Blood Blood Culture - Preliminary 12/01/22 12:16 Urine,Catheterized Urine Culture - Final Escherichia Coli Laboratory WBC 6.6 X10^3/uL (3.6-10.0) 12/06/22 04:34 RBC 3.52 X10^6/uL (3.5-5.4) 12/06/22 04:34 Hgb 10.1 g/dL (12.0-16.0) L 12/06/22 04:34 Hct 31.4 % (36.0-47.0) L 12/06/22 04:34 MCV 89.4 fL (80.0-100.0) 12/06/22 04:34 MCH 28.8 pg (27.0-34.0) 12/06/22 04:34 MCHC 32.3 g/dL (33.0-35.0) L 12/06/22 04:34 RDW 19.4 % (11.6-16.5) H 12/06/22 04:34 Plt Count 203 X10^3/uL (150.0-450.0) 12/06/22 04:34 Plt Count Comment Adequate (ADEQUATE) 12/05/22 04:34 MPV 9.8 fL (7.4-11.0) 12/06/22 04:34 Neut % (Auto) 71.0 % (42.0-75.0) 12/06/22 04:34 Lymph % (Auto) 15.7 % (21.0-51.0) L 12/06/22 04:34 [place] % (Auto) 9.7 % (0.0-13.0) 12/06/22 04:34 Eos % (Auto) 3.0 % (0.9-2.9) H 12/06/22 04:34 Baso % (Auto) 0.6 % (0.2-1.0) 12/06/22 04:34 Neut # (Auto) 4.7 x10^3/uL (2.2-4.8) 12/06/22 04:34 Lymph # (Auto) 1.0 X10^3/uL (1.3-2.9) L 12/06/22 04:34 [place] # (Auto) 0.6 x10^3/uL (0.3-0.8) 12/06/22 04:34 Eos # (Auto) 0.2 x10^3/uL (0.0-0.2) 12/06/22 04:34 Baso # (Auto) 0.0 X10^3/uL (0.0-0.1) 12/06/22 04:34 Absolute Nucleated RBC 0.0 /100WBC 12/06/22 04:34 Total Counted 100 12/01/22 11:49 Neutrophils % (Manual) 89 % (39-76) H 12/01/22 11:49 Lymphocytes % (Manual) 4 % (13-43) L 12/01/22 11:49 Monocytes % (Manual) 5 % (4-9) 12/01/22 11:49 Eosinophils % (Manual) 2 % (0-6) 12/01/22 11:49 Plt Clumps, EDTA Rare 12/03/22 05:42 Plt Morphology Comment Normal (NORMAL) 12/05/22 04:34 RBC Morphology Abnormal (NORMAL) A 12/05/22 04:34 Anisocytosis 1+ A 12/05/22 04:34 Ovalocytes Present 12/05/22 04:34 Stomatocytes Present 12/05/22 04:34 Sample Site Lb 12/05/22 16:12 ABG pH 7.360 (7.35-7.45) 12/05/22 16:12 ABG pCO2 81.0 mmHg (35.0-45.0) H* 12/05/22 16:12 ABG pO2 82.0 mmHg (80.0-100.0) 12/05/22 16:12 ABG HCO3 45.8 mmol/L (22-26) H* 12/05/22 16:12 ABG O2 Saturation 96.0 % (90-100) 12/05/22 16:12 ABG Base Excess 16.5 mmol/L (-2.0-2.0) H 12/05/22 16:12 Laci Test N/a 12/05/22 16:12 A-a Gradient 45.0 mmHg 12/05/22 16:12 FiO2 32.0 12/05/22 16:12 Blood Gas Comments Pt maria l well elj 12/05/22 16:12 Sodium 140 mmol/L (136-145) 12/06/22 04:34 Corrected Sodium 141 mmol/L (136-145) 12/06/22 04:34 Potassium 3.9 mmol/L (3.5-5.1) 12/06/22 04:34 Chloride 101 mmol/L (98-107) 12/06/22 04:34 Carbon Dioxide 40.7 mmol/L (21-32) H 12/06/22 04:34 BUN 15 mg/dL (7-18) 12/06/22 04:34 Creatinine 1.18 mg/dL (0.55-1.02) H 12/06/22 04:34 Est GFR (MDRD) Af Amer 57 (>60) L 12/06/22 04:34 Est GFR (MDRD) Non-Af 47 (>60) L 12/06/22 04:34 Glucose 127 mg/dL (65-99) H 12/06/22 04:34 POC Glucose (mg/dL) 134 mg/dL (65-99) H 12/06/22 05:22 Calcium 8.8 mg/dL (8.5-10.1) 12/06/22 04:34 Corrected Calcium 10.2 mg/dL (8.5-10.1) H 12/06/22 04:34 Magnesium 2.4 mg/dL (2.0-2.9) 12/06/22 04:34 Total Bilirubin 0.20 mg/dL (0.2-1.0) 12/06/22 04:34 AST 12 Units/L (15-37) L 12/06/22 04:34 ALT 15 Units/L (12-78) 12/06/22 04:34 Alkaline Phosphatase 57 Units/L (46-116) 12/06/22 04:34 B-Natriuretic Peptide 602 pg/mL (0-79) H* 12/04/22 05:33 Total Protein 5.8 g/dL (6.4-8.2) L 12/06/22 04:34 Albumin 2.3 g/dL (3.4-5.0) L 12/06/22 04:34 Globulin 3.5 g/dL (2.5-4.5) 12/06/22 04:34 Albumin/Globulin Ratio 0.7 Ratio (1.1-2.1) L 12/06/22 04:34 Specimen Type Catherized urine 12/01/22 12:16 Urine Color Yellow (YELLOW) 12/01/22 12:16 Urine Appearance Hazy (CLEAR) 12/01/22 12:16 Urine pH 6.0 (5.0 - 8.0) 12/01/22 12:16 Ur Specific [place] 1.010 (1.000-1.030) 12/01/22 12:16 Urine Protein 2+ (NEGATIVE) 12/01/22 12:16 Urine Glucose (UA) 4+ (NEGATIVE) 12/01/22 12:16 Urine Ketones Negative (NEGATIVE) 12/01/22 12:16 Urine Blood 1+ (NEGATIVE) 12/01/22 12:16 Urine Nitrite Negative (NEGATIVE) 12/01/22 12:16 Urine Bilirubin Negative (NEGATIVE) 12/01/22 12:16 Urine Urobilinogen Normal (NORMAL) 12/01/22 12:16 Ur Leukocyte Esterase 3+ (NEGATIVE) 12/01/22 12:16 Urine RBC 0-2 /HPF (0-3) 12/01/22 12:16 Urine WBC 5-10 /HPF (0-5) A 12/01/22 12:16 Ur Squamous Epith Cells Rare /HPF (NEGATIVE) 12/01/22 12:16 Amorphous Sediment Trace /HPF (NEGATIVE) 12/01/22 12:16 Urine Bacteria 1+ /HPF (NEGATIVE) 12/01/22 12:16 Ur Culture Indicated? Yes/culture set up 12/01/22 12:16 Urine Opiates Screen Negative (NEG=<300) 12/01/22 12:16 Urine Methadone Screen Negative (NEG=<300) 12/01/22 12:16 Ur Barbiturates Screen Negative (NEG=<200) 12/01/22 12:16 Ur Phencyclidine Scrn Negative (NEG=<25) 12/01/22 12:16 Ur Amphetamines Screen Negative (NEG=<1000) 12/01/22 12:16 U Benzodiazepines Scrn Negative (NEG=<200) 12/01/22 12:16 Urine Cocaine Screen Negative (NEG=<300) 12/01/22 12:16 U Marijuana (THC) Screen Negative (NEG=<50) 12/01/22 12:16 Plan (1) Bacteremia: Status: Acute (2) UTI due to extended-spectrum beta lactamase (ESBL) producing Escherichia coli: Status: Acute Plan: k. (3) Acute exacerbation of chronic obstructive pulmonary disease (COPD): Status: Acute Plan: Continue budesonide and Xopenex nebs. (4) Hypertension: Status: Acute (5) Hypoxia: Status: Acute Plan: Supplemental O2 and IV diuresis with Lasix 40 mg IV (6) CHF exacerbation: Status: Acute (7) Hypomagnesemia: Status: Acute Plan: Start magnesium oxide 400 mg p.o. every 12 hours. Recheck magnesium level tomorrow morning. (8) Diabetes mellitus type 2 in nonobese: Status: Acute Plan: Continue slight scale regular insulin per protocol.
[2022-12-06] MEDS: PULMICORT NEB TX 0.5 MG NEB SCH ×2 (09:00→20:05)
--- NOTE | 2022-12-06 16:07 | PCM.PROG ---
Progress Note Progress Note for Day of Date of Exam: 12/06/22 Subjective Subjective: Patient was lying in bed this morning she reports she is not feeling as well today she has been feeling. I did see that she grew out Streptococcus viridans in the blood culture over the weekend. She was changed to meropenem which covers her E. coli UTI as well. Family has also come later in the day wanted to know if we can restart her home nutrition through PEG tube which I agree that we can do. Currently she is down to 2 L nasal cannula from 3 L at the end of last week. Since she is feeling weaker today and not as well we will plan on keeping her for another 24 hours given her IV meropenem and we will recheck routine labs and chest x-ray again tomorrow morning. She is feeling better that time we will plan on changing her over to oral antibiotics and discharge her home. Past Medical Family Social History Allergies: Allergies No Known Drug Allergies Allergy (Verified 03/15/22 16:31) Vital Signs and I&O's Vital Signs: Temperature 98.0 F Pulse Rate [Right Brachial] 75 Pulse Rate 66 Respiratory Rate 20 Blood Pressure [Left Arm] 111/51 Blood Pressure [Right Arm] 119/56 Blood Pressure 129/59 O2 Sat by Pulse Oximetry 96 Intake and Output: Intake & Output 12/04/22 12/05/22 12/06/22 12/07/22 10:59 11:59 11:59 11:59 Intake Total 1340 / 1340 Balance 1340 / 1340 Physical Exam Oriented: Normal Eyes: Normal Ear: Normal Nose: Normal Respiratory: Generalized and Diminished Cardiovascular: Normal Auscultation: Bowel Sounds: Normal Tenderness: Normal Skin: Decreased Turgur Musculoskeletal: Elbow Psychiatric: Normal Mood Description: Calm Affect: Normal Speech Pattern: Clear and Appropriate Laboratory and Diagnostics Result Diagrams: 12/06/22 04:34 12/06/22 04:34 Labs: 12/01/22 14:08 Blood Blood Culture - Final Strep Salivari (Veridan Strep) 12/01/22 14:20 Blood Blood Culture - Preliminary 12/01/22 12:16 Urine,Catheterized Urine Culture - Final Escherichia Coli Laboratory WBC 6.6 X10^3/uL (3.6-10.0) 12/06/22 04:34 RBC 3.52 X10^6/uL (3.5-5.4) 12/06/22 04:34 Hgb 10.1 g/dL (12.0-16.0) L 12/06/22 04:34 Hct 31.4 % (36.0-47.0) L 12/06/22 04:34 MCV 89.4 fL (80.0-100.0) 12/06/22 04:34 MCH 28.8 pg (27.0-34.0) 12/06/22 04:34 MCHC 32.3 g/dL (33.0-35.0) L 12/06/22 04:34 RDW 19.4 % (11.6-16.5) H 12/06/22 04:34 Plt Count 203 X10^3/uL (150.0-450.0) 12/06/22 04:34 Plt Count Comment Adequate (ADEQUATE) 12/05/22 04:34 MPV 9.8 fL (7.4-11.0) 12/06/22 04:34 Neut % (Auto) 71.0 % (42.0-75.0) 12/06/22 04:34 Lymph % (Auto) 15.7 % (21.0-51.0) L 12/06/22 04:34 [place] % (Auto) 9.7 % (0.0-13.0) 12/06/22 04:34 Eos % (Auto) 3.0 % (0.9-2.9) H 12/06/22 04:34 Baso % (Auto) 0.6 % (0.2-1.0) 12/06/22 04:34 Neut # (Auto) 4.7 x10^3/uL (2.2-4.8) 12/06/22 04:34 Lymph # (Auto) 1.0 X10^3/uL (1.3-2.9) L 12/06/22 04:34 [place] # (Auto) 0.6 x10^3/uL (0.3-0.8) 12/06/22 04:34 Eos # (Auto) 0.2 x10^3/uL (0.0-0.2) 12/06/22 04:34 Baso # (Auto) 0.0 X10^3/uL (0.0-0.1) 12/06/22 04:34 Absolute Nucleated RBC 0.0 /100WBC 12/06/22 04:34 Total Counted 100 12/01/22 11:49 Neutrophils % (Manual) 89 % (39-76) H 12/01/22 11:49 Lymphocytes % (Manual) 4 % (13-43) L 12/01/22 11:49 Monocytes % (Manual) 5 % (4-9) 12/01/22 11:49 Eosinophils % (Manual) 2 % (0-6) 12/01/22 11:49 Plt Clumps, EDTA Rare 12/03/22 05:42 Plt Morphology Comment Normal (NORMAL) 12/05/22 04:34 RBC Morphology Abnormal (NORMAL) A 12/05/22 04:34 Anisocytosis 1+ A 12/05/22 04:34 Ovalocytes Present 12/05/22 04:34 Stomatocytes Present 12/05/22 04:34 Sample Site Lbra 12/05/22 16:12 ABG pH 7.360 (7.35-7.45) 12/05/22 16:12 ABG pCO2 81.0 mmHg (35.0-45.0) H* 12/05/22 16:12 ABG pO2 82.0 mmHg (80.0-100.0) 12/05/22 16:12 ABG HCO3 45.8 mmol/L (22-26) H* 12/05/22 16:12 ABG O2 Saturation 96.0 % (90-100) 12/05/22 16:12 ABG Base Excess 16.5 mmol/L (-2.0-2.0) H 12/05/22 16:12 Laci Test N/a 12/05/22 16:12 A-a Gradient 45.0 mmHg 12/05/22 16:12 FiO2 32.0 12/05/22 16:12 Blood Gas Comments Pt maria l well elj 12/05/22 16:12 Sodium 140 mmol/L (136-145) 12/06/22 04:34 Corrected Sodium 141 mmol/L (136-145) 12/06/22 04:34 Potassium 3.9 mmol/L (3.5-5.1) 12/06/22 04:34 Chloride 101 mmol/L (98-107) 12/06/22 04:34 Carbon Dioxide 40.7 mmol/L (21-32) H 12/06/22 04:34 BUN 15 mg/dL (7-18) 12/06/22 04:34 Creatinine 1.18 mg/dL (0.55-1.02) H 12/06/22 04:34 Est GFR (MDRD) Af Amer 57 (>60) L 12/06/22 04:34 Est GFR (MDRD) Non-Af 47 (>60) L 12/06/22 04:34 Glucose 127 mg/dL (65-99) H 12/06/22 04:34 POC Glucose (mg/dL) 165 mg/dL (65-99) H 12/06/22 11:59 Calcium 8.8 mg/dL (8.5-10.1) 12/06/22 04:34 Corrected Calcium 10.2 mg/dL (8.5-10.1) H 12/06/22 04:34 Magnesium 2.4 mg/dL (2.0-2.9) 12/06/22 04:34 Total Bilirubin 0.20 mg/dL (0.2-1.0) 12/06/22 04:34 AST 12 Units/L (15-37) L 12/06/22 04:34 ALT 15 Units/L (12-78) 12/06/22 04:34 Alkaline Phosphatase 57 Units/L (46-116) 12/06/22 04:34 B-Natriuretic Peptide 602 pg/mL (0-79) H* 12/04/22 05:33 Total Protein 5.8 g/dL (6.4-8.2) L 12/06/22 04:34 Albumin 2.3 g/dL (3.4-5.0) L 12/06/22 04:34 Globulin 3.5 g/dL (2.5-4.5) 12/06/22 04:34 Albumin/Globulin Ratio 0.7 Ratio (1.1-2.1) L 12/06/22 04:34 Specimen Type Catherized urine 12/01/22 12:16 Urine Color Yellow (YELLOW) 12/01/22 12:16 Urine Appearance Hazy (CLEAR) 12/01/22 12:16 Urine pH 6.0 (5.0 - 8.0) 12/01/22 12:16 Ur Specific [place] 1.010 (1.000-1.030) 12/01/22 12:16 Urine Protein 2+ (NEGATIVE) 12/01/22 12:16 Urine Glucose (UA) 4+ (NEGATIVE) 12/01/22 12:16 Urine Ketones Negative (NEGATIVE) 12/01/22 12:16 Urine Blood 1+ (NEGATIVE) 12/01/22 12:16 Urine Nitrite Negative (NEGATIVE) 12/01/22 12:16 Urine Bilirubin Negative (NEGATIVE) 12/01/22 12:16 Urine Urobilinogen Normal (NORMAL) 12/01/22 12:16 Ur Leukocyte Esterase 3+ (NEGATIVE) 12/01/22 12:16 Urine RBC 0-2 /HPF (0-3) 12/01/22 12:16 Urine WBC 5-10 /HPF (0-5) A 12/01/22 12:16 Ur Squamous Epith Cells Rare /HPF (NEGATIVE) 12/01/22 12:16 Amorphous Sediment Trace /HPF (NEGATIVE) 12/01/22 12:16 Urine Bacteria 1+ /HPF (NEGATIVE) 12/01/22 12:16 Ur Culture Indicated? Yes/culture set up 12/01/22 12:16 Urine Opiates Screen Negative (NEG=<300) 12/01/22 12:16 Urine Methadone Screen Negative (NEG=<300) 12/01/22 12:16 Ur Barbiturates Screen Negative (NEG=<200) 12/01/22 12:16 Ur Phencyclidine Scrn Negative (NEG=<25) 12/01/22 12:16 Ur Amphetamines Screen Negative (NEG=<1000) 12/01/22 12:16 U Benzodiazepines Scrn Negative (NEG=<200) 12/01/22 12:16 Urine Cocaine Screen Negative (NEG=<300) 12/01/22 12:16 U Marijuana (THC) Screen Negative (NEG=<50) 12/01/22 12:16 Plan (1) Bacteremia: Status: Acute Narrative Support Text: Patient is positive for viridans streptococci in one of her blood cultures. She did have an elevated white count 2 mornings ago but since then has normalized.. Plan: Continue IV meropenem. (2) UTI due to extended-spectrum beta lactamase (ESBL) producing Escherichia coli: Status: Acute Plan: k. (3) Acute exacerbation of chronic obstructive pulmonary disease (COPD): Status: Acute Plan: Continue budesonide and Xopenex nebs. (4) Hypertension: Status: Acute Plan: Continue atenolol 25 mg daily. I will start her on losartan 25 mg daily for renovascular protection secondary to her diabetes and history of congestive heart failure. If patient goes home this weekend she should be discharged with losartan 25 mg daily for renovascular protection as she was not on SUSHMA inhibitor or ARB when she was admitted to the hospital on 12/01/2022. (5) Hypoxia: Status: Acute Plan: Supplemental O2 and IV diuresis with Lasix 40 mg IV (6) CHF exacerbation: Status: Acute Plan: Increase patient's Lasix to 40 mg IV every 12 hours from 20 mg IV q. hours. I will also recheck a BNP and a portable chest x-ray again tomorrow morning. (7) Hypomagnesemia: Status: Acute Plan: Start magnesium oxide 400 mg p.o. every 12 hours. Recheck magnesium level tomorrow morning. (8) Diabetes mellitus type 2 in nonobese: Status: Acute Plan: Continue slight scale regular insulin per protocol.
[2022-12-06] MEDS: SNACK - Diabetic Appropriate PO SCH (20:07)
[2022-12-06] MEDS: KLONOPIN TAB 1 MG PO PRN (20:12)
[2022-12-07] MEDS: NS 1,000 ML IV 1,000 ML IV SCH ×3 (03:55→16:54)
[2022-12-07] MEDS: XOPENEX 1.25 MG/3 ML NEBULE NEB SCH ×3 (05:25→21:00)
[2022-12-07] MEDS: MAG-OX TAB PO SCH ×2 (06:07→16:54)
[2022-12-07 06:16] LABS: BASOPHILS # (AUTO) 0.1 X10^3/uL (0.0-0.1); BASOPHILS % (AUTO) 0.7 % (0.2-1.0); EOSINOPHILS # (AUTO) 0.2 x10^3/uL (0.0-0.2); EOSINOPHILS % (AUTO) 2.4 % (0.9-2.9); HEMATOCRIT 33.4 % (36.0-47.0); HEMOGLOBIN 10.6 g/dL (12.0-16.0); LYMPHOCYTES # (AUTO) 1.1 X10^3/uL (1.3-2.9); LYMPHOCYTES % (AUTO) 12.5 % (21.0-51.0); MEAN CORPUSCULAR HEMOGLOBIN 28.9 pg (27.0-34.0); MEAN CORPUSCULAR HGB CONC 31.8 g/dL (33.0-35.0); MEAN CORPUSCULAR VOLUME 90.7 fL (80.0-100.0); MONOCYTES # (AUTO) 0.8 x10^3/uL (0.3-0.8); MONOCYTES % (AUTO) 9.3 % (0.0-13.0); NEUTROPHILS # (AUTO) 6.5 x10^3/uL (2.2-4.8); NEUTROPHILS % (AUTO) 75.1 % (42.0-75.0); RED BLOOD COUNT 3.68 X10^6/uL (3.5-5.4); RED CELL DISTRIBUTION WIDTH 19.6 % (11.6-16.5); WHITE BLOOD COUNT 8.7 X10^3/uL (3.6-10.0)
[2022-12-07 06:35] LABS: ALANINE AMINOTRANSFERASE 14 Units/L (12-78); ALBUMIN 2.6 g/dL (3.4-5.0); ALKALINE PHOSPHATASE 58 Units/L (46-116); ASPARTATE AMINO TRANSFERASE 10 Units/L (15-37); BLOOD UREA NITROGEN 14 mg/dL (7-18); CALCIUM 9.3 mg/dL (8.5-10.1); CARBON DIOXIDE 41.1 mmol/L (21-32); CHLORIDE 101 mmol/L (98-107); COR CA(FOR HYPOALB) 10.4 mg/dL (8.5-10.1); COR NA(FOR HYPERGLY) 143 mmol/L (136-145); CREATININE 1.04 mg/dL (0.55-1.02); SODIUM 142 mmol/L (136-145); TOTAL PROTEIN 6.2 g/dL (6.4-8.2); eGFR NON BLACK RACES 54 (>60)
[2022-12-07] MEDS: LASIX IVP SCH (08:38)
[2022-12-07] MEDS: MERREM VIAL 500 MG in NS 50 ML IV 50 ML IV SCH ×2 (08:39→21:25)
[2022-12-07] MEDS: LOVENOX INJ 40 MG SYR SC SCH (08:40)
[2022-12-07] MEDS: COZAAR PO SCH (08:41)
[2022-12-07] MEDS: MICRO K EXTEN CAP 10 MEQ PO SCH ×2 (08:41→21:25)
[2022-12-07] MEDS: TENORMIN PO SCH (08:41)
[2022-12-07] MEDS: PriLOSEC PO SCH (08:41)
[2022-12-07] MEDS: ASPIRIN EC 81 MG PO SCH (08:41)
[2022-12-07] MEDS: MIRAPEX TAB 1 MG PO SCH ×2 (08:42→21:25)
[2022-12-07] MEDS: FARXIGA PO SCH (08:43)
[2022-12-07] MEDS: DALIRESP PO SCH (08:43)
[2022-12-07] MEDS: LIPITOR TAB 20 MG PO SCH (08:45)
[2022-12-07] MEDS: PULMICORT NEB TX 0.5 MG NEB SCH ×2 (08:52→21:00)
--- NOTE | 2022-12-07 08:57 | RAD ---
HISTORYCOPD CHFSTUDYPortable AP chestCOMPARISONMarch 2022FINDINGSHeart size remains normal. There is apparent increase in pulmonary vascular congestion with interstitial pulmonary pattern. There is no dejan consolidation or pleural fluid.IMPRESSIONSlight increase in pulmonary vascular congestion since prior exam. No change otherwise.Electronically signed by: DEANN MORALES (Dec 07, 2022 08:56:40)
[2022-12-07] MEDS: NovoLIN R (or HumuLIN R) SUBCUT PRN ×2 (11:20→17:11)
--- NOTE | 2022-12-07 16:27 | PCM.PROG ---
Progress Note Progress Note for Day of Date of Exam: 12/07/22 Subjective Subjective: Patient is sitting up in bed this morning breakfast. She reports she still not feeling well today. Her BNP is down to 400 something which is improved from the 1 to 2 days ago. Chest x-ray shows increased vascular congestion but no pleural effusions. Her daughter called this morning and t hinks patient should be put into rehab to help increase her strength and I am in agreement with this so we will start trying to find a place to have the patient transferred to soon as she is better from her current illnesses. Past Medical Family Social History Allergies: Allergies No Known Drug Allergies Allergy (Verified 03/15/22 16:31) Review of Systems ROS: No change since H&P Vital Signs and I&O's Vital Signs: Temperature 98.0 F Pulse Rate [Left Brachial] 82 Pulse Rate [Right Brachial] 73 Pulse Rate 58 Respiratory Rate 20 Blood Pressure [Left Arm] 137/62 Blood Pressure [Right Arm] 113/55 Blood Pressure 129/59 O2 Sat by Pulse Oximetry 97 Intake and Output: Intake & Output 12/05/22 12/06/22 12/07/22 12/08/22 11:59 11:59 11:59 11:59 Intake Total 1340 / 1340 1320 / 1320 588 / 588 Balance 1340 / 1340 1320 / 1320 588 / 588 Physical Exam Oriented: Normal Eyes: Normal Ear: Normal Nose: Normal Respiratory: Generalized and Diminished Cardiovascular: Normal Auscultation: Bowel Sounds: Normal Tenderness: Normal Skin: Decreased [place]urgur Musculoskeletal: Elbow Psychiatric: Normal Mood Description: Calm Affect: Normal Speech Pattern: Clear and Appropriate Laboratory and Diagnostics Result Diagrams: 12/07/22 05:30 12/07/22 05:30 Labs: 12/05/22 11:00 Blood Blood Culture - Preliminary 12/05/22 10:50 Blood Blood Culture - Preliminary 12/01/22 14:20 Blood Blood Culture - Final 12/01/22 14:08 Blood Blood Culture - Final Strep Salivari (Veridan Strep) 12/01/22 12:16 Urine,Catheterized Urine Culture - Final Escherichia Coli Laboratory WBC 8.7 X10^3/uL (3.6-10.0) 12/07/22 05:30 RBC 3.68 X10^6/uL (3.5-5.4) 12/07/22 05:30 Hgb 10.6 g/dL (12.0-16.0) L 12/07/22 05:30 Hct 33.4 % (36.0-47.0) L 12/07/22 05:30 MCV 90.7 fL (80.0-100.0) 12/07/22 05:30 MCH 28.9 pg (27.0-34.0) 12/07/22 05:30 MCHC 31.8 g/dL (33.0-35.0) L 12/07/22 05:30 RDW 19.6 % (11.6-16.5) H 12/07/22 05:30 Plt Count 223 X10^3/uL (150.0-450.0) 12/07/22 05:30 Plt Count Comment Adequate (ADEQUATE) 12/05/22 04:34 MPV 10.0 fL (7.4-11.0) 12/07/22 05:30 Neut % (Auto) 75.1 % (42.0-75.0) H 12/07/22 05:30 Lymph % (Auto) 12.5 % (21.0-51.0) L 12/07/22 05:30 [place] % (Auto) 9.3 % (0.0-13.0) 12/07/22 05:30 Eos % (Auto) 2.4 % (0.9-2.9) 12/07/22 05:30 Baso % (Auto) 0.7 % (0.2-1.0) 12/07/22 05:30 Neut # (Auto) 6.5 x10^3/uL (2.2-4.8) H 12/07/22 05:30 Lymph # (Auto) 1.1 X10^3/uL (1.3-2.9) L 12/07/22 05:30 [place] # (Auto) 0.8 x10^3/uL (0.3-0.8) 12/07/22 05:30 Eos # (Auto) 0.2 x10^3/uL (0.0-0.2) 12/07/22 05:30 Baso # (Auto) 0.1 X10^3/uL (0.0-0.1) 12/07/22 05:30 Absolute Nucleated RBC 0.0 /100WBC 12/07/22 05:30 Total Counted 100 12/01/22 11:49 Neutrophils % (Manual) 89 % (39-76) H 12/01/22 11:49 Lymphocytes % (Manual) 4 % (13-43) L 12/01/22 11:49 Monocytes % (Manual) 5 % (4-9) 12/01/22 11:49 Eosinophils % (Manual) 2 % (0-6) 12/01/22 11:49 Plt Clumps, EDTA Rare 12/03/22 05:42 Plt Morphology Comment Normal (NORMAL) 12/05/22 04:34 RBC Morphology Abnormal (NORMAL) A 12/05/22 04:34 Anisocytosis 1+ A 12/05/22 04:34 Ovalocytes Present 12/05/22 04:34 Stomatocytes Present 12/05/22 04:34 Sample Site Lbra 12/05/22 16:12 ABG pH 7.360 (7.35-7.45) 12/05/22 16:12 ABG pCO2 81.0 mmHg (35.0-45.0) H* 12/05/22 16:12 ABG pO2 82.0 mmHg (80.0-100.0) 12/05/22 16:12 ABG HCO3 45.8 mmol/L (22-26) H* 12/05/22 16:12 ABG O2 Saturation 96.0 % (90-100) 12/05/22 16:12 ABG Base Excess 16.5 mmol/L (-2.0-2.0) H 12/05/22 16:12 Laci Test N/a 12/05/22 16:12 A-a Gradient 45.0 mmHg 12/05/22 16:12 FiO2 32.0 12/05/22 16:12 Blood Gas Comments Pt maria l well elj 12/05/22 16:12 Sodium 142 mmol/L (136-145) 12/07/22 05:30 Corrected Sodium 143 mmol/L (136-145) 12/07/22 05:30 Potassium 4.3 mmol/L (3.5-5.1) 12/07/22 05:30 Chloride 101 mmol/L (98-107) 12/07/22 05:30 Carbon Dioxide 41.1 mmol/L (21-32) H 12/07/22 05:30 BUN 14 mg/dL (7-18) 12/07/22 05:30 Creatinine 1.04 mg/dL (0.55-1.02) H 12/07/22 05:30 Est GFR (MDRD) Af Amer > 60 (>60) 12/07/22 05:30 Est GFR (MDRD) Non-Af 54 (>60) L 12/07/22 05:30 Glucose 159 mg/dL (65-99) H 12/07/22 05:30 POC Glucose (mg/dL) 177 mg/dL (65-99) H 12/07/22 11:17 Calcium 9.3 mg/dL (8.5-10.1) 12/07/22 05:30 Corrected Calcium 10.4 mg/dL (8.5-10.1) H 12/07/22 05:30 Magnesium 2.4 mg/dL (2.0-2.9) 12/06/22 04:34 Total Bilirubin 0.30 mg/dL (0.2-1.0) 12/07/22 05:30 AST 10 Units/L (15-37) L 12/07/22 05:30 ALT 14 Units/L (12-78) 12/07/22 05:30 Alkaline Phosphatase 58 Units/L (46-116) 12/07/22 05:30 B-Natriuretic Peptide 489 pg/mL (0-79) H 12/07/22 05:30 Total Protein 6.2 g/dL (6.4-8.2) L 12/07/22 05:30 Albumin 2.6 g/dL (3.4-5.0) L 12/07/22 05:30 Globulin 3.6 g/dL (2.5-4.5) 12/07/22 05:30 Albumin/Globulin Ratio 0.7 Ratio (1.1-2.1) L 12/07/22 05:30 Specimen Type Catherized urine 12/01/22 12:16 Urine Color Yellow (YELLOW) 12/01/22 12:16 Urine Appearance Hazy (CLEAR) 12/01/22 12:16 Urine pH 6.0 (5.0 - 8.0) 12/01/22 12:16 Ur Specific [place] 1.010 (1.000-1.030) 12/01/22 12:16 Urine Protein 2+ (NEGATIVE) 12/01/22 12:16 Urine Glucose (UA) 4+ (NEGATIVE) 12/01/22 12:16 Urine Ketones Negative (NEGATIVE) 12/01/22 12:16 Urine Blood 1+ (NEGATIVE) 12/01/22 12:16 Urine Nitrite Negative (NEGATIVE) 12/01/22 12:16 Urine Bilirubin Negative (NEGATIVE) 12/01/22 12:16 Urine Urobilinogen Normal (NORMAL) 12/01/22 12:16 Ur Leukocyte Esterase 3+ (NEGATIVE) 12/01/22 12:16 Urine RBC 0-2 /HPF (0-3) 12/01/22 12:16 Urine WBC 5-10 /HPF (0-5) A 12/01/22 12:16 Ur Squamous Epith Cells Rare /HPF (NEGATIVE) 12/01/22 12:16 Amorphous Sediment Trace /HPF (NEGATIVE) 12/01/22 12:16 Urine Bacteria 1+ /HPF (NEGATIVE) 12/01/22 12:16 Ur Culture Indicated? Yes/culture set up 12/01/22 12:16 Urine Opiates Screen Negative (NEG=<300) 12/01/22 12:16 Urine Methadone Screen Negative (NEG=<300) 12/01/22 12:16 Ur Barbiturates Screen Negative (NEG=<200) 12/01/22 12:16 Ur Phencyclidine Scrn Negative (NEG=<25) 12/01/22 12:16 Ur Amphetamines Screen Negative (NEG=<1000) 12/01/22 12:16 U Benzodiazepines Scrn Negative (NEG=<200) 12/01/22 12:16 Urine Cocaine Screen Negative (NEG=<300) 12/01/22 12:16 U Marijuana (THC) Screen Negative (NEG=<50) 12/01/22 12:16 Plan (1) Bacteremia: Status: Acute Plan: Continue IV meropenem. (2) UTI due to extended-spectrum beta lactamase (ESBL) producing Escherichia coli: Status: Acute Plan: k. (3) Acute exacerbation of chronic obstructive pulmonary disease (COPD): Status: Acute Plan: Continue budesonide and Xopenex nebs. (4) Hypertension: Status: Acute Plan: Continue atenolol 25 mg daily. I will start her on losartan 25 mg daily for renovascular protection secondary to her diabetes and history of congestive heart failure. If patient goes home this weekend she should be discharged with losartan 25 mg daily for renovascular protection as she was not on SUSHMA inhibitor or ARB when she was admitted to the hospital on 12/01/2022. (5) Hypoxia: Status: Acute Plan: Supplemental O2 and IV diuresis with Lasix 40 mg IV (6) CHF exacerbation: Status: Acute Plan: Increase patient's Lasix to 40 mg IV every 12 hours from 20 mg IV q. hours. I will also recheck a BNP and a portable chest x-ray again tomorrow morning. (7) Hypomagnesemia: Status: Acute Plan: Start magnesium oxide 400 mg p.o. every 12 hours. Recheck magnesium level tomorrow morning. (8) Diabetes mellitus type 2 in nonobese: Status: Acute Plan: Continue slight scale regular insulin per protocol.
[2022-12-07] MEDS: ALDACTONE TAB 25 MG PO SCH (17:58)
[2022-12-07] MEDS: SNACK - Diabetic Appropriate PO SCH (21:23)
[2022-12-07] MEDS: COREG TAB 12.5 MG PO SCH (21:24)
--- NOTE | 2022-12-07 21:29 | RAD ---
HISTORYExcessive coughingSTUDYCHEST, 1 VIEWCOMPARISONMar 2022 at 4:30 a.m.TECHNIQUEChest radiographic imaging, AP portable projection, 1 imageFINDINGSNo cardiomegaly.No focal airspace disease.Mild diffuse increased interstitial markings.No pleural effusion.No pneumothorax.No acute osseous abnormality.IMPRESSIONNo significant interval acute cardiopulmonary changes.Electronically signed by: Mendel Somers (Dec 07, 2022 21:28:08)
[2022-12-07] MEDS: KLONOPIN TAB 1 MG PO PRN (22:44)
[2022-12-08] MEDS: NS 1,000 ML IV 1,000 ML IV SCH ×2 (03:47→09:43)
[2022-12-08] MEDS: XOPENEX 1.25 MG/3 ML NEBULE NEB SCH (05:23)
[2022-12-08 06:28] LABS: BASOPHILS # (AUTO) 0.1 X10^3/uL (0.0-0.1); BASOPHILS % (AUTO) 0.8 % (0.2-1.0); EOSINOPHILS # (AUTO) 0.2 x10^3/uL (0.0-0.2); EOSINOPHILS % (AUTO) 2.3 % (0.9-2.9); HEMATOCRIT 32.8 % (36.0-47.0); HEMOGLOBIN 10.4 g/dL (12.0-16.0); LYMPHOCYTES # (AUTO) 1.1 X10^3/uL (1.3-2.9); LYMPHOCYTES % (AUTO) 11.8 % (21.0-51.0); MEAN CORPUSCULAR HEMOGLOBIN 28.6 pg (27.0-34.0); MEAN CORPUSCULAR HGB CONC 31.6 g/dL (33.0-35.0); MEAN CORPUSCULAR VOLUME 90.4 fL (80.0-100.0); MEAN PLATELET VOLUME 9.6 fL (7.4-11.0); MONOCYTES # (AUTO) 0.9 x10^3/uL (0.3-0.8); MONOCYTES % (AUTO) 9.2 % (0.0-13.0); NEUTROPHILS # (AUTO) 7.3 x10^3/uL (2.2-4.8); NEUTROPHILS % (AUTO) 75.9 % (42.0-75.0); RED BLOOD COUNT 3.63 X10^6/uL (3.5-5.4); RED CELL DISTRIBUTION WIDTH 18.7 % (11.6-16.5); WHITE BLOOD COUNT 9.6 X10^3/uL (3.6-10.0)
[2022-12-08 06:30] LABS: ALANINE AMINOTRANSFERASE 11 Units/L (12-78); ALBUMIN 2.7 g/dL (3.4-5.0); ALKALINE PHOSPHATASE 61 Units/L (46-116); ASPARTATE AMINO TRANSFERASE 14 Units/L (15-37); BLOOD UREA NITROGEN 12 mg/dL (7-18); CALCIUM 9.2 mg/dL (8.5-10.1); CARBON DIOXIDE 43.9 mmol/L (21-32); CHLORIDE 100 mmol/L (98-107); COR CA(FOR HYPOALB) 10.2 mg/dL (8.5-10.1); COR NA(FOR HYPERGLY) 146 mmol/L (136-145); CREATININE 0.95 mg/dL (0.55-1.02); SODIUM 144 mmol/L (136-145); TOTAL PROTEIN 6.5 g/dL (6.4-8.2); eGFR NON BLACK RACES > 60 (>60)
[2022-12-08] MEDS: MAG-OX TAB PO SCH (06:40)
[2022-12-08 08:54] VITALS: BP 135/62
[2022-12-08] MEDS: PULMICORT NEB TX 0.5 MG NEB SCH (08:55)
[2022-12-08] MEDS: LOVENOX INJ 40 MG SYR SC SCH (10:07)
[2022-12-08] MEDS: MERREM VIAL 500 MG in NS 50 ML IV 50 ML IV SCH (10:07)
[2022-12-08] MEDS: ALDACTONE TAB 25 MG PO SCH (10:07)
[2022-12-08] MEDS: FARXIGA PO SCH (10:08)
[2022-12-08] MEDS: ASPIRIN EC 81 MG PO SCH (10:08)
[2022-12-08] MEDS: PriLOSEC PO SCH (10:09)
[2022-12-08] MEDS: COZAAR PO SCH (10:09)
[2022-12-08] MEDS: MIRAPEX TAB 1 MG PO SCH (10:09)
[2022-12-08] MEDS: COREG TAB 12.5 MG PO SCH (10:10)
[2022-12-08] MEDS: DALIRESP PO SCH (10:10)
[2022-12-08] MEDS: MICRO K EXTEN CAP 10 MEQ PO SCH (10:10)
[2022-12-08] MEDS: LASIX IVP SCH (10:12)
[2022-12-08] MEDS: LIPITOR TAB 20 MG PO SCH (10:13)
== END 2022-12-08 11:50 | DRG 872 ==
LOC: ER 10:47 → MED/SURG 15:16
PROVIDERS: ADMIT Family Medicine; ATTEND Family Medicine
DX: Z16.12 Extended spectrum beta lactamase (ESBL) resistance; J44.1 Chronic obstructive pulmonary disease with (acute) exacerbation; A40.8 Other streptococcal sepsis; E78.2 Mixed hyperlipidemia; I25.10 Atherosclerotic heart disease of native coronary artery without angina pectoris; B96.29 Other Escherichia coli [E. coli] as the cause of diseases classified elsewhere; R53.1 Weakness; Z93.1 Gastrostomy status; K21.9 Gastro-esophageal reflux disease without esophagitis; E11.65 Type 2 diabetes mellitus with hyperglycemia; E83.42 Hypomagnesemia; W18.39XA Other fall on same level, initial encounter; Z20.822 Contact with and (suspected) exposure to COVID-19; R09.02 Hypoxemia; Z99.81 Dependence on supplemental oxygen; N39.0 Urinary tract infection, site not specified; I50.9 Heart failure, unspecified; I11.0 Hypertensive heart disease with heart failure; E86.0 Dehydration; R06.02 Shortness of breath